=== PATIENT | female | born 1950 | race African-American/Black ===

== ENCOUNTER 2017-07-20 09:35 | Outpatient (CLI) | payer MEDICARE | END 2017-07-20 09:36 | disposition home or self-care (01) | LOC: BICMAMMO 09:35 | PROVIDERS: ATTEND Family Medicine | DX: Z12.31 Encounter for screening mammogram for malignant neoplasm of breast (principal) | CPT/HCPCS: 77063; 77067 ==

== ENCOUNTER 2017-10-13 09:06 | Emergency (ER) | payer MEDICARE ==
[2017-10-13 09:33] LABS: #Eosinphils 0.1 thou/uL (0.0-0.7); #Lymphocytes 1.3 thou/uL (1.20-3.40); #Monocytes 0.4 thou/uL (0.11-0.59); %Basophils 0.6 % (0.0-1.0); %Eosinophils 1.7 % (0.0-10.0); %Lymphocytes 18.9 % (21.0-51.0); %Monocytes 6.3 % (0.0-10.0); %Neutrophils 72.4 % (42.0-75.0); Hemoglobin 9.1 g/dL (12.0-16.0); Mean Corpuscular HGB CONC 31.3 g/dL (32.0-36.0); Mean Corpuscular Hemoglobin 25.1 pg (27.0-31.0); Mean Corpuscular Volume 80.3 fl (81.0-99.0); Mean Platelet Volume 10.4 fL (7.4-10.4); Platelet Count 144 thou/uL (130-400); RBC Distribution Width 15.9 % (11.5-14.5); Red Blood Cell (RBC) Count 3.62 mill/uL (4.20-5.40); White Blood Cell (WBC) Count 6.9 thou/uL (4.8-10.8)
--- NOTE | 2017-10-13 09:56 | RAD ---
PORTABLE CHEST: History: Chest pain. FINDINGS: The lungs olson are clear. No infiltrate or vascular congestion. Heart size is upper normal. IMPRESSION: No acute lung process. POS: [facility]
[2017-10-13 09:57] LABS: ALT (SGPT) 14 U/L (8-55); AST (SGOT) 17 U/L (5-34); Albumin 4.3 g/dL (3.4-4.8); Alkaline Phosphatase 92 U/L (40-150); Anion Gap 12 mmol/L (10-20); BUN (Urea Nitrogen) 23 mg/dL (9.8-20.1); Bilirubin, Total 0.2 mg/dL (0.2-1.2); CK (CPK) 129 U/L (29-168); Calc. Creatinine Clearance 0 mL/min (70-130); Calcium 9.9 mg/dL (7.8-10.44); Carbon Dioxide 28 mmol/L (23-31); Chloride 103 mmol/L (98-107); Estimated GFR-MDRD 44; Globulin 3.6 g/dL (2.4-3.5); Glucose 137 mg/dL (80-115); Lipase 20 U/L (8-78); Potassium 4.5 mmol/L (3.5-5.1); Protein, Total 7.9 g/dL (6.0-8.3); Sodium 138 mmol/L (136-145)
[2017-10-13 09:59] LABS: CKMB 0.7 ng/mL (0-6.6); Troponin I Less than 0.010 ng/mL (< 0.028)
[2017-10-13 12:02] LABS: CKMB 0.6 ng/mL (0-6.6); Troponin I Less than 0.010 ng/mL (< 0.028)
--- NOTE | 2017-10-13 13:01 | CT ---
CT ARTERIOGRAM CHEST WITH IV CONTRAST AND 3D MIP IMAGING: HISTORY: Chest pain. Dyspnea. FINDINGS: No comparison. There is good contrast opacification of the pulmonary arteries and thoracic aorta wit h normal branching of the great vessels. Calcifications apparent within the arterial structures. Mi ld atelectasis at the lung bases. No lobar consolidation, pleural fluid, or pneumothorax. No medias tinal adenopathy. Small hiatal hernia. Small cyst superior pole right kidney. IMPRESSION: 1. No CT evidence of pulmonary embolus. 2. Atherosclerosis. 3. Small hiatal hernia. POS: [facility]
[2017-10-13] MEDS ORDERED: ISOVUE-370 76%-LOCM 1 ML ONE (14:56)
--- NOTE | 2017-10-18 16:09 | EKG ---
Test Reason : Blood Pressure : / mmHG Vent. Rate : 063 BPM Atrial Rate : 063 BPM P-R Int : 156 ms QRS Dur : 080 ms QT Int : 406 ms P-R-T Axes : 003 024 029 degrees QTc Int : 415 ms Normal sinus rhythm No STEMI Normal ECG Confirmed by FANY DARNELL M.D. ([id number]), film editor supervisor HILARIA FERMIN ([id number]) on 10/18/2017 4:09:32 PM Referred By: Confirmed By:FANY DARNELL M.D.
== END 2017-10-13 12:58 | disposition home or self-care (01) ==
LOC: ERS 09:06
DX: R07.89 Other chest pain (principal); I12.9 Hypertensive chronic kidney disease with stage 1 through stage 4 chronic kidney disease, or unspecified chronic kidney disease; E11.22 Type 2 diabetes mellitus with diabetic chronic kidney disease; N18.3 Chronic kidney disease, stage 3 (moderate); E78.5 Hyperlipidemia, unspecified; D50.9 Iron deficiency anemia, unspecified
CPT/HCPCS: 36415; 71045; 71275; 80053; 82550; 82553; 83690; 84484; 85025; 85379; 93005; 94760

== ENCOUNTER 2017-10-21 10:40 | Outpatient (CLI) | payer MEDICARE | END 2017-10-21 10:41 | disposition home or self-care (01) | LOC: BICULT 10:40 | PROVIDERS: ATTEND Internal Medicine Nephrology | DX: N18.3 Chronic kidney disease, stage 3 (moderate) (principal); N28.1 Cyst of kidney, acquired | CPT/HCPCS: 76770 ==

== ENCOUNTER 2019-03-28 08:08 | Outpatient (CLI) | payer MEDICARE ==
--- NOTE | 2019-03-28 08:38 | MMO ---
Bilateral MAMMO Bilat Screen [facility]DI[facility]PR[facility]. CLINICAL HISTORY: Patient is 68 years old and is seen for screening. The patient has no family history of breast cancer. The patient has no personal history of cancer. The patient has a history of left Excisional Biopsy in 1979 - benign. VIEWS: The views performed were: bilateral craniocaudal with tomosynthesis and bilateral mediolateral oblique with tomosynthesis. FILMS COMPARED: The present examination has been compared to prior imaging studies performed at [facility] on 12/01/2012, 01/23/2014, 06/08/2016 and 07/20/2017. This study has been interpreted with the assistance of computer-aided detection. MAMMOGRAM FINDINGS: There are scattered fibroglandular densities. There are no suspicious masses, suspicious calcifications, or new areas of architectural distortion. IMPRESSION: THERE IS NO MAMMOGRAPHIC EVIDENCE OF MALIGNANCY. A ROUTINE FOLLOW-UP MAMMOGRAM IN 1 YEAR IS RECOMMENDED. THE RESULTS OF THIS EXAM WERE SENT TO THE PATIENT. ACR BI-RADS Category 1 - Negative MAMMOGRAPHY NOTE: 1. A negative mammogram report should not delay a biopsy if a dominant of clinically suspicious mass is present. 2. Approximately 10% to 15% of breast cancers are not detected by mammography. 3. Adenosis and dense breasts may obscure an underlying neoplasm. Reported by: RHODA SHEARER MD Electonically Signed: [id number]
== END 2019-03-28 08:09 | disposition home or self-care (01) ==
LOC: BICMAMMO 08:08
PROVIDERS: ATTEND Family Medicine
DX: Z12.31 Encounter for screening mammogram for malignant neoplasm of breast (principal); Z91.89 Other specified personal risk factors, not elsewhere classified
CPT/HCPCS: 77063; 77067

== ENCOUNTER 2019-11-14 09:07 | Inpatient (IN) | payer MEDICARE, OTHER ==
[2019-11-14 09:53] LABS: Hemoglobin 9.4 g/dL (12.0-16.0); Mean Corpuscular HGB CONC 30.2 g/dL (32.0-36.0); Mean Corpuscular Hemoglobin 25.9 pg (27.0-31.0); Mean Corpuscular Volume 85.6 fL (78.0-98.0); RBC Distribution Width 18.8 % (11.5-14.5); Red Blood Cell (RBC) Count 3.64 mill/uL (4.20-5.40); White Blood Cell (WBC) Count 16.6 thou/uL (4.8-10.8)
[2019-11-14] MEDS ORDERED: Ondansetron PF 4 MG/2 ML Vial IVP PRN (10:00)
[2019-11-14] MEDS ORDERED: Acetaminophen 325 MG TAB PO PRN (10:00)
[2019-11-14] MEDS ORDERED: Ondansetron ODT 4 MG TAB SL PRN (10:00)
[2019-11-14 10:20] LABS: AST (SGOT) 25 U/L (5-34); Albumin 3.4 g/dL (3.4-4.8); Alkaline Phosphatase 91 U/L (40-110); Anion Gap 25 mmol/L (10-20); BUN (Urea Nitrogen) 69 mg/dL (9.8-20.1); Bilirubin, Total 0.4 mg/dL (0.2-1.2); Calc. Creatinine Clearance 0 mL/min (70-130); Calcium 8.6 mg/dL (7.8-10.44); Carbon Dioxide 12 mmol/L (23-31); Chloride 87 mmol/L (98-107); Estimated GFR-MDRD 8; Globulin 3.6 g/dL (2.4-3.5); Potassium 4.9 mmol/L (3.5-5.1)
[2019-11-14 10:26] LABS: #Basophils 0.1 thou/uL (0.0-0.2); #Lymphocytes 0.4 thou/uL (1.20-3.40); #Monocytes 0.9 thou/uL (0.11-0.59); #Neutrophils 15.2 thou/uL (1.40-6.50); %Basophils 0.7 % (0.0-1.0); %Lymphocytes 2.7 % (21.0-51.0); %Monocytes 5.6 % (0.0-10.0); Mean Platelet Volume 13.1 fL (7.4-10.4); Platelet Count 160 thou/uL (130-400); Sodium 119 mmol/L (136-145)
[2019-11-14 10:27] LABS: Glucose 662 mg/dL (80-115); Large Platelets SLIGHT; MDiff Complete? YES; Platelet Morphology Comment Appears Adequate
--- NOTE | 2019-11-14 10:27 | RAD ---
PORTABLE CHEST 1 VIEW: Date: 11/14/2019 Time: 1006 hours HISTORY: Elevated blood sugar. Fatigue. Cough. Fever. FINDINGS: Comparison made with exam of 10/13/2017. The heart size is normal. There is patchy air space disease in the right lower lung. No pneumothorace s or pleural effusions are seen. There are degenerative changes in the spine. IMPRESSION: Right-sided pneumonia. POS: [facility]
[2019-11-14 10:29] LABS: ALT (SGPT) 14 U/L (8-55)
[2019-11-14 10:35] LABS: CKMB 3.9 ng/mL (0-6.6)
[2019-11-14] MEDS ORDERED: Azithromycin 500 MG VIAL ONE (10:59)
[2019-11-14] MEDS ORDERED: cefTRIAXone\\ROCEPHIN 1 GM VIAL ONE (10:59)
[2019-11-14] MEDS ORDERED: Sodium Chloride 0.9% 1,000 ML IV PRN ×4 (11:00)
[2019-11-14] MEDS ORDERED: NS 0.9% w/ 20 MEQ KCL 1,000 ML/1,000 ML BAG IV PRN ×2 (11:00)
[2019-11-14] MEDS ORDERED: Dextrose 5% in Water 1,000 ML IV PRN (11:00)
[2019-11-14] MEDS ORDERED: D5 1/2 NS w/20 mEq KCL 1,000 ML IV PRN (11:00)
[2019-11-14] MEDS ORDERED: HUMULIN R 100 UNITS in Sodium Chloride 0.9% 100 ML IVPB SCH ×2 (11:15→14:00)
[2019-11-14] MEDS ORDERED: Magnesium Oxide 400 MG TAB PO PRN ×2 (13:50)
[2019-11-14] MEDS ORDERED: Potassium Chloride 40 MEQ in Sodium Chloride 0.9% 250 ML 250 ML IVPB PRN (13:50)
[2019-11-14] MEDS ORDERED: Potassium Phosphate 9 MMOL in Sodium Chloride 0.9% 100 ML IVPB PRN (13:50)
[2019-11-14] MEDS ORDERED: Potassium Phosphate 15 MMOL in Sodium Chloride 0.9% 250 ML 250 ML IV PRN (13:50)
[2019-11-14] MEDS ORDERED: Potassium Chloride 40 MEQ in Premix Bag 1 BAG IVPB PRN (13:50)
[2019-11-14] MEDS ORDERED: Magnesium 2 GM/50 ML 2 GM in Premix Bag 1 BAG IVPB PRN (13:50)
[2019-11-14] MEDS ORDERED: CCU ELECTROLYTE REPLACEMENT PROTOCOL FS PRN (13:50)
[2019-11-14] MEDS ORDERED: Potassium Phosphate 12 MMOL in Sodium Chloride 0.9% 250 ML 250 ML IV PRN (13:50)
[2019-11-14] MEDS ORDERED: PHOS-NAK 1 PKT PACK PO PRN ×2 (13:50)
[2019-11-14] MEDS ORDERED: Potassium Chloride 20 MEQ TAB PO PRN (13:50)
[2019-11-14] MEDS ORDERED: Dextrose 50% Abboject 50 ML SYRINGE SLOW IVP PRN (13:50)
[2019-11-14 14:43] LABS: Anion Gap 21 mmol/L (10-20); BUN (Urea Nitrogen) 63 mg/dL (9.8-20.1); Calc. Creatinine Clearance 0 mL/min (70-130); Calcium 8.1 mg/dL (7.8-10.44); Carbon Dioxide 10 mmol/L (23-31); Chloride 96 mmol/L (98-107); Estimated GFR-MDRD 9; Glucose 489 mg/dL (80-115); Potassium 4.1 mmol/L (3.5-5.1); Sodium 123 mmol/L (136-145)
[2019-11-14] MEDS: Heparin 5,000 UNITS/ML VIAL SC SCH ×2 (15:42→20:00)
[2019-11-14] MEDS ORDERED: traMADol HCl 50 MG TAB PO PRN (16:26)
[2019-11-14 17:22] LABS: SARS-CoV-2 MS2 Positive; SARS-CoV-2 N Gene Negative; SARS-CoV-2 S Gene Negative; SARS-CoV-2 orf1ab Negative
[2019-11-14 17:35] LABS: Actual Bicarbonate (HCO3a) 13.1 mEq/L (22-28); Base Excess (BEa) -13.2 mEq/L (-2.0 to +3.0); CO2 Tension 31.9 mmHg (35.0-45.0); Calcium, Ionized 1.09 mmol/L (1.12-1.30); Carboxyhemoglobin (COHb) 0.2 gm% (0.0-3.0); Hemoglobin (Hb) 9.9 g/dL (12.0-16.0); Potassium - ABG Lab 3.93 mmol/L (3.70-5.30)
[2019-11-14 17:39] LABS: O2 Tension (PaO2) 59.8 mmHg (> 80.0); Puncture Site RR; pH, Arterial 7.23 (7.35-7.45)
[2019-11-14 17:42] LABS: ALV-art Gradient 185.525 (0-20)
[2019-11-14 18:17] LABS: Anion Gap 20 mmol/L (10-20); BUN (Urea Nitrogen) 63 mg/dL (9.8-20.1); Calc. Creatinine Clearance 13 mL/min (70-130); Carbon Dioxide 12 mmol/L (23-31); Chloride 98 mmol/L (98-107); Estimated GFR-MDRD 9; Potassium 4.1 mmol/L (3.5-5.1); Sodium 126 mmol/L (136-145)
[2019-11-14 18:18] LABS: Calcium 8.3 mg/dL (7.8-10.44); Glucose 342 mg/dL (80-115)
[2019-11-14 18:36] LABS: Troponin I 0.071 ng/mL (< 0.028)
[2019-11-14 20:34] LABS: Anion Gap 19 mmol/L (10-20); BUN (Urea Nitrogen) 63 mg/dL (9.8-20.1); Calc. Creatinine Clearance 13 mL/min (70-130); Calcium 8.1 mg/dL (7.8-10.44); Carbon Dioxide 12 mmol/L (23-31); Chloride 99 mmol/L (98-107); Estimated GFR-MDRD 9; Glucose 278 mg/dL (80-115); Sodium 126 mmol/L (136-145)
[2019-11-14] MEDS: Dextrose 5 %-0.45 % NaCl 1,000 ML IV PRN (22:20)
--- NOTE | 2019-11-14 22:37 | HP ---
CHIEF COMPLAINT: High blood sugars. HISTORY OF PRESENT ILLNESS: This patient is a 69-year-old female, followed by Dr. Francis Guajardo. She reports that she has chronic kidney disease and is followed by Dr. Sands as well. Dr. Guajardo recently changed her medications to discontinue the metformin and it appears that she had glyburide started on 11/10/2019, as a substitution. She reports that her blood sugar started running high and she started feeling bad. She had frequent polyuria and poor appetite. She says that her blood sugars continued to elevate and that is why she ultimately presented to the emergency department. The patient does also report, however, that she started running fever about 4 days ago. She also admits to having a cough that is productive of some blood-tinged sputum. She denies feeling short of breath. Denies any chest pain. She does have some lower back pain when she is lying down. REVIEW OF SYSTEMS: Again, she has had fever. She has had poor appetite and polyuria. All other systems reviewed, all were otherwise negative. PAST MEDICAL HISTORY: Diabetes, hypertension, hyperlipidemia, chronic kidney disease, obstructive sleep apnea. Chronic anemia for which she takes shots, she says she was originally on Procrit, but that has been changed through the [facility]. PAST SURGICAL HISTORY: Breast biopsy. FAMILY HISTORY: Both parents had diabetes. SOCIAL HISTORY: Nonsmoker, nondrinker, nondrug user. She is . She is full code. Her would be her surrogate decision maker should that become necessary. ALLERGIES: CODEINE, MEPERIDINE, OXAPROZIN, AND METFORMIN IS ON THAT LIST, BUT PRESUMABLY DUE TO HER RENAL FUNCTION. MEDICATIONS: Glyburide 5 mg one p.o. daily, rosuvastatin 40 mg daily, carvedilol 25 mg b.i.d., nifedipine 90 mg one p.o. daily, MiraLAX p.r.n., Centrum Silver daily, CoQ10 with fish oil omega-3 fatty acids daily, aspirin 81 mg daily. PHYSICAL EXAMINATION: VITAL SIGNS: In the emergency department, the patient's BP ranged from 97/53 to 107/51, pulse is 73, respirations 26-32, O2 saturation was at 95% on 3 L. GENERAL APPEARANCE: Age-appropriate female, slightly obese, in no acute distress. She is a little somnolent, but easily awaken and conversant. HEENT: PERRL. No OP lesions. NECK: Supple and symmetric without lymphadenopathy, JVD, or bruits. HEART: Regular rate and rhythm without murmurs, gallops, or rubs. LUNGS: Right-sided rales present. No wheezes or rhonchi. Left is clear. ABDOMEN: Soft, nontender, and nondistended. Positive bowel sounds. No masses. No organomegaly. EXTREMITIES: No cyanosis, clubbing, or edema. PSYCH: Normal affect and behavior. NEURO: No focal deficits. LABORATORY DATA: White count 16.6, hemoglobin 9.4, platelets 160. Sodium is 119, potassium 4.9, chloride 87, CO2 12, BUN 69, creatinine is 6.22, GFR is 8, glucose 662. LFTs normal. Troponin 0.93. Beta hydroxybutyrate 3.16. Chest x-ray shows right-sided pneumonia. EKG shows sinus rhythm at 78 beats per minute. IMPRESSION AND PLAN: 1. Diabetic ketoacidosis. This patient is typically not a type 1 diabetic by history; however, she may have type 1 features given the longevity of her type 2 diabetes or she may have increased insulin requirements due to underlying infection and this is exacerbated by her renal function. She is admitted to the ICU and started on DKA protocol; however, we will not use the replacement protocol for potassium given her renal function. She is on an insulin drip and we will continue to titrate as needed. 2. Acute kidney injury on chronic kidney disease stage 4. The patient's baseline GFR is around 25, she currently is at 8. She is followed by Dr. Sands. I have discussed it with him and we will consult him formally to come assess the patient as well. 3. Pseudohyponatremia, should continue to resolve with treatment of the hyperglycemia. 4. Diabetes mellitus. Again, continue with the insulin drip. 5. Chronic anemia. Currently, her hemoglobin is not too far up from her baseline, but likely will come down with aggressive hydration as she is probably somewhat hemoconcentrated. 6. Acute hypoxic respiratory failure due to underlying pneumonia. We will continue with oxygen support via Ventimask as needed. 7. Right-sided pneumonia. She has elevated white count, what appears to be largely lobar pneumonia more consistent with community-acquired bacterial pneumonia; however, COVID testing has been performed and we will keep the patient in isolation until that is resulted. Until then, continue with Rocephin and azithromycin and follow up cultures. Job ID: [id number]
--- NOTE | 2019-11-15 00:27 | CON ---
DATE OF CONSULTATION: HISTORY OF PRESENT ILLNESS: Ms. Chacon is a 69-year-old black female with known history of chronic renal failure from diabetic nephropathy. She was admitted due to elevated blood sugar. In addition, she was found to have an incidental pneumonia. She is being ruled out for COVID-19. We are being consulted for her acute kidney injury on top of her chronic renal failure. REVIEW OF SYSTEMS: Positive for generalized malaise. Positive for decreased appetite, decreased energy level. Positive for nausea, but no overt vomiting. No diarrhea. No constipation. Positive for ? of fever. Positive for a cough. No hematochezia. No melena. MEDICATIONS: 1. Aspirin 81 mg tablet once a day. 2. Nifedipine 90 mg XL tablet once a day. 3. Januvia 100 mg once a day. 4. Coreg 25 mg b.i.d. 5. Rosuvastatin 40 mg tablet q.h.s. 6. Centrum Silver daily. 7. Coenzyme Q10 one tablet daily. Current medications: 1. Azithromycin 500 mg IV daily. 2. Ceftriaxone 1 g IV daily. 3. Humulin drip. 4. Heparin 5000 units subcu b.i.d. 5. Normal saline with 20 mEq KCl at 250 mL an hour. PAST MEDICAL HISTORY: Chronic renal failure from diabetic nephropathy, longstanding hypertension, type 2 diabetes mellitus, hyperlipidemia. PAST SURGICAL HISTORY: Status post upper GI endoscopy, status post colonoscopy, status post right breast biopsy benign finding, status post bilateral carpal tunnel surgery, status post partial hysterectomy, status post appendectomy. SOCIAL HISTORY: The patient is , 3 children. She lives in [place]. 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 No history of smoking. No alcohol intake. No IV drug abuse. Education, 9th grade. No blood transfusion. ALLERGIES: CODEINE. TRAUMA: None. IMMUNIZATION: Up-to-date. HOSPITALIZATIONS: Please see past medical history. FAMILY HISTORY: No family history of ESRD. PHYSICAL EXAMINATION: VITAL SIGNS: Blood pressure is noted at 90/70, heart rate 70. GENERAL: The patient is awake, lethargic, not in overt distress. SKIN: Decreased turgor. HEENT: She has pinkish conjunctivae. Anicteric sclerae. No neck mass. No carotid bruits. No JVD. CHEST: No deformities. LUNGS: Clear breath sounds. HEART: Normal sinus rhythm. No murmur, gallops, or rubs. ABDOMEN: Globular, soft, nontender. No masses. EXTREMITIES: No edema, no deformities. NEUROLOGICAL: Awake, lethargic. No tremors. No asterixis. Somewhat confused. LABORATORY DATA: 1. Chemistries of November 14, 2019 at 1415 hours: Sodium 123, potassium 4.1, chloride 96, carbon dioxide 10, BUN 63, creatinine 5.77, glucose 489, GFR 9 mL/minute, calcium 8.1. 2. November 14, 2019 at 0938 hours, BUN is 69, creatinine 6.22. 3. September 25, 2019: Creatinine 2.36. 4. White count 16.6, hemoglobin 9.4. DIAGNOSTIC STUDIES: Chest x-ray of November 14, 2019, shows right-sided pneumonia. ASSESSMENT AND PLAN: 1. Acute kidney injury on top of her chronic renal failure - consider the possibility of a hemodynamically-mediated renal dysfunction. Agree with empiric volume repletion. Currently, receiving normal saline at 250 mL an hour. She is tolerating said treatment. I do not see any indication for any emergent dialysis tonight. We will re-evaluate in a.m. Review of the urinalysis will also be done. 2. Diabetic ketoacidosis, currently on insulin drip. Currently, on aggressive volume repletion. Optimize diabetes control. 3. Pneumonia, on empiric IV antibiotics. The patient is also being ruled out for coronavirus disease-19 infection. Agree with current management. Job ID: [id number]
[2019-11-15 01:58] LABS: Anion Gap 19 mmol/L (10-20); BUN (Urea Nitrogen) 67 mg/dL (9.8-20.1); Calc. Creatinine Clearance 13 mL/min (70-130); Calcium 7.7 mg/dL (7.8-10.44); Carbon Dioxide 11 mmol/L (23-31); Chloride 99 mmol/L (98-107); Estimated GFR-MDRD 9; Glucose 200 mg/dL (80-115); Potassium 3.7 mmol/L (3.5-5.1); Sodium 125 mmol/L (136-145)
[2019-11-15] MEDS: Dextrose 5 %-0.45 % NaCl 1,000 ML IV PRN (02:29)
[2019-11-15 07:41] LABS: Bacteria/HPF 4+ HPF (None Seen); Bilirubin Negative (Negative); Blood, Urine 2+ (Negative); Clarity Clear (Clear); Glucose, Urine (Dipstick) 200 mg/dL (Negative); Leukocyte Negative Leu/uL (Negative); Nitrite Negative (Negative); Protein, Urine (Dipstick) 300 mg/dL (Neg-Trace); Urobilinogen Normal mg/dL (Less than 2); WBC/HPF 0-3 HPF (0-3)
[2019-11-15] MEDS: Sodium Chloride 0.45% 1,000 ML IV SCH (08:37)
[2019-11-15] MEDS: Heparin 5,000 UNITS/ML VIAL SC SCH ×3 (08:42→21:06)
[2019-11-15] MEDS: Famotidine 20 MG TAB PO SCH (08:42)
--- NOTE | 2019-11-15 09:30 | CON ---
DATE OF CONSULTATION: HISTORY OF PRESENT ILLNESS: Steff Chacon is a pleasant 69-year-old female, who was brought to the ER with symptoms of elevated blood sugar, shortness of breath, and chest pain. Initial blood pressure is 107/51, temperature is 99, respiratory rate 18, pulse 81, saturations are 92% on room air. She apparently desatted, had low oxygen level. She is transferred to the ICU on BiPAP. Serology done for coronavirus negative. She improved, breathing on the BiPAP. This morning, she is better. She has been taking metformin for several weeks. Apparently, this was discontinued because of worsening renal failure, put her on glipizide. Nonsmoker. Nondrinker. Previous [employer] work. No previous history of TB or bronchial asthma. PAST MEDICAL HISTORY: Pertinent for underlying renal failure, arthritis, hypertension, hyperlipidemia. PREVIOUS SURGERIES: Carpal tunnel, breast biopsy, appendix, hysterectomy. HOME MEDICATIONS: Includes; 1. Crestor 40. 2. Nifedipine 90. 3. Coenzyme Q10 100. 4. Coreg 25 b.i.d. 5. Januvia 100. 6. Glyburide 5. 7. Ecotrin 81. REVIEW OF SYSTEMS: Otherwise, negative. PHYSICAL EXAMINATION: GENERAL: She is awake, alert, and responsive. She is still somewhat short of breath. VITAL SIGNS: Sats are 98 on 3 L, blood pressure 129/51, pulse rate 18. CHEST: Decreased breath sounds. No wheezing. CARDIAC: Normal S1, S2. No gallops. ABDOMEN: No masses. NEUROLOGIC: She is awake, alert, and responsive. LABORATORY DATA: Shows PO2 of 59, pCO2 of 31, pH 7.2 on a BiPAP. Creatinine is 5.8, BUN is 67, sodium 125, glucose 150. White count 16,000, hemoglobin and hematocrit 9 and 31, platelet count is 116. X-ray shows a right-sided pneumonia. IMPRESSION: 1. Right lung pneumonia, community acquired. 2. Diabetes, renal failure. PLAN: low-dose insulin drip. I would suggest switching over to Lantus until renal function improves. Otherwise, I agree with present antibiotic, adjust for renal failure. PT, supportive care. She can probably be transferred out of the ICU to MICU. We will try and get a sputum culture if possible. Consultation note, 70 minutes, 50% direct patient care. Job ID: [id number]
[2019-11-15] MEDS: Insulin Glargine 10 UNITS in Pre-Filled Syringe 1 EACH SC SCH (09:42)
--- NOTE | 2019-11-15 09:53 | PRG ---
DATE OF SERVICE: 11/15/2019 SUBJECTIVE: Ms. Chacon is a 69-year-old black female with chronic renal failure, was initially admitted for DKA. She was also found to have pneumonia. She has been ruled out for COVID. She is on empiric IV antibiotics. We are seeing her up for chronic renal failure, which has worsened over time. In spite of volume repletion, the renal function is relatively unchanged. I did discuss at length with the patient to proceed with dialysis and she has agreed with that. Surgical consult will be done for placement of a cuffed hemodialysis catheter. OBJECTIVE: VITAL SIGNS: Blood pressure is noted at 123/56, heart rate 79, respiratory rate 30, temperature 97.6, and O2 saturation 96%. GENERAL: Awake, lethargic, not in overt distress. SKIN: Adequate turgor. HEENT: She has a slightly pale conjunctivae. Anicteric sclerae. NECK: No neck mass. No carotid bruits. No JVD. CHEST: No deformities. LUNGS: Decreased breath sounds. HEART: Normal sinus rhythm. No murmur. No gallops. No rubs. ABDOMEN: Globular, soft, and nontender. No masses. EXTREMITIES: No edema. No deformities. MEDICATIONS: Medications of November 15, 2019, were reviewed. LABORATORY DATA: Laboratories of November 14, 2019; white count 16.6 and hemoglobin 9.4. On November 15, 2019, glucose 150. Sodium 125, potassium 3.7, chloride 99, carbon dioxide 11, BUN 67, creatinine 5.58, GFR 9 mL/minute, and calcium 7.7. ASSESSMENT AND PLAN: 1. Chronic renal failure/acute kidney injury - unimproved renal function in spite of volume repletion. Urine sediment did not suggest a superimposed acute tubular necrosis. The plan due to the unimproved renal dysfunction, we will initiate hemodialysis with this patient. Surgical consult has been done. 2. Pneumonia. Currently, on IV antibiotics. The patient has been ruled out for COVID. 3. Overall prognosis remains guarded. Job ID: [id number]
[2019-11-15 10:08] LABS: ALT (SGPT) 20 U/L (8-55); AST (SGOT) 37 U/L (5-34); Alkaline Phosphatase 95 U/L (40-110); Anion Gap 20 mmol/L (10-20); BUN (Urea Nitrogen) 63 mg/dL (9.8-20.1); Bilirubin, Total 0.3 mg/dL (0.2-1.2); Calc. Creatinine Clearance 13 mL/min (70-130); Calcium 8.3 mg/dL (7.8-10.44); Carbon Dioxide 10 mmol/L (23-31); Chloride 99 mmol/L (98-107); Estimated GFR-MDRD 9; Globulin 3.9 g/dL (2.4-3.5); Glucose 174 mg/dL (80-115); Hemoglobin 9.1 g/dL (12.0-16.0); Mean Corpuscular HGB CONC 30.4 g/dL (32.0-36.0); Mean Corpuscular Hemoglobin 26.2 pg (27.0-31.0); Mean Corpuscular Volume 86.2 fL (78.0-98.0); Mean Platelet Volume 12.9 fL (7.4-10.4); Platelet Count 152 thou/uL (130-400); Protein, Total 6.9 g/dL (6.0-8.3); RBC Distribution Width 18.7 % (11.5-14.5); Red Blood Cell (RBC) Count 3.46 mill/uL (4.20-5.40); Sodium 125 mmol/L (136-145); White Blood Cell (WBC) Count 17.8 thou/uL (4.8-10.8)
[2019-11-15 10:26] LABS: Band 24 % (5-11); Hypochromia SLIGHT = 6-15 cells (100X) (0-5/hpf); Lymphocytes 5 % (21-51); MDiff Complete? YES; Monocytes 4 % (0-10); Neutrophil 67 % (42-75); Ovalocytes SLIGHT = 2-5 cells (100X) (0-1/hpf); Platelet Morphology Comment Appears Adequate; Polychromasia MODERATE = 3-4 cells (100X) (0-2/hpf)
[2019-11-15 10:30] LABS: HBSAB Concentration 2.22 mIU/mL; HBSAg Index 0.19 S/CO (0-0.99); Hep B Core Total Ab Non-Reactive (NonReactive); Hep B Core Total Index 0.17 S/CO (0-0.79); Hep B Surf AB Non-Reactive (NonReactive); Hep B Surf Ag Non-Reactive S/CO (NonReactive); Hep C IgG Ab Non-Reactive (NonReactive); Hep C Index 0.09 S/CO (0-0.79)
[2019-11-15] MEDS: cefTRIAXone\\ROCEPHIN 1 GM in Sodium Chloride 0.9% 100 ML IVPB SCH (11:15)
[2019-11-15] MEDS: Azithromycin 500 MG in Sodium Chloride 0.9% 250 ML 250 ML IVPB SCH (11:43)
[2019-11-15] MEDS ORDERED: Furosemide 100 MG/10 ML VIAL SLOW IVP SCH (12:15)
--- NOTE | 2019-11-15 12:16 | ULT ---
BILATERAL UPPER EXTREMITY VENOUS DOPPLER ULTRASOUND FOR VEIN MAPPING/DIALYSIS ACCESS: Date: 11/15/2019 HISTORY: Chronic renal failure. FINDINGS: RIGHT UPPER EXTREMITY: The right cephalic vein measures 2.8 mm in the proximal arm, 2.1 mm in the mid arm, 1.6 mm in the dis jacinto arm, 2.1 mm in the proximal forearm, 1.9 mm in the mid forearm, and 1.6 mm in the distal forearm. There is partial compression of the right cephalic vein in the antecubital fossa due to thrombus. The right basilic vein measures 4.2 mm in the proximal arm, 5.1 mm in the mid arm, 3.5 mm in the dist al arm, 3.3 mm in the antecubital fossa, 1.7 mm in the proximal forearm, 1.1 mm in the mid forearm, a nd 1.1 mm in the distal forearm. The right brachial artery measures 4.7 mm, radial artery measures 2.4 mm, and ulnar artery measures 2 .0 mm. LEFT UPPER EXTREMITY: The left cephalic vein measures 2.3 mm in the proximal arm, 3.0 mm in the mid arm, 2.6 mm in the dist al arm, 3.2 mm in the antecubital fossa, 1.5 mm in the proximal forearm, 1.8 mm in the mid forearm, a nd 1.8 mm in the distal forearm. The left basilic vein measures 3.3 mm in the proximal arm, 3.9 mm in the mid arm, 3.2 mm in the dista l arm, 3.9 mm in the antecubital fossa, 1.8 mm in the proximal forearm, 1.7 mm in the mid forearm, an d 1.3 mm in the distal forearm. The left brachial artery measures 4.5 mm, radial artery measures 3.4 mm, and ulnar artery measures 2. 5 mm. POS: [facility]
[2019-11-15] MEDS: Insulin Regular 300 UNITS/3 ML VIAL SC PRN ×3 (12:29→23:37)
[2019-11-15] MEDS ORDERED: Norepinephrine 8 MG/0.9% NS 250 ML ONE (12:54)
[2019-11-15 13:02] LABS: Actual Bicarbonate (HCO3a) 12.4 mEq/L (22-28); Base Excess (BEa) -16.3 mEq/L (-2.0 to +3.0); Calcium, Ionized 1.11 mmol/L (1.12-1.30); Carboxyhemoglobin (COHb) 0.4 gm% (0.0-3.0); Hemoglobin (Hb) 10.1 g/dL (12.0-16.0); O2 Tension (PaO2) 86.5 mmHg (> 80.0)
[2019-11-15] MEDS ORDERED: Propofol 1,000 MG/100 ML VIAL IV ONE (13:07)
[2019-11-15 13:31] LABS: Puncture Site LRA
[2019-11-15] MEDS ORDERED: Fentanyl BOLUS 250 ML IVPB PRN (14:27)
[2019-11-15] MEDS ORDERED: DISCONTINUE PREVIOUS NARCOTIC PAIN MEDICATIONS AND BENZODIAZEPINES FS SCH (14:27)
[2019-11-15] MEDS ORDERED: Propofol BOLUS 1,000 MG/100 ML VIAL IV PRN (14:27)
[2019-11-15] MEDS ORDERED: Morphine 2 MG/ML SYRINGE SLOW IVP PRN (14:27)
[2019-11-15] MEDS ORDERED: Lorazepam 2 MG/ML VIAL SLOW IVP PRN (14:27)
[2019-11-15] MEDS ORDERED: Norepinephrine 8 MG/0.9% NS 250 ML IVPB SCH (14:30)
[2019-11-15] MEDS: fentaNYL Citrate/PF 2,000 MCG in Sodium Chloride 0.9% 60 ML IV SCH (14:47)
--- NOTE | 2019-11-15 14:51 | PRG ---
DATE OF SERVICE: 11/15/2019 Called to see. The patient became progressively more lethargic, more obtunded. They are in the process of starting an emergency dialysis catheter. Unfortunately, her blood gases showed severe metabolic acidosis with a pH of 7.1. It is felt that she needs to be intubated. A bite block was placed, and 7.5 endotracheal tube was placed above the bronchoscope passed in, placed above the jigar. She was back for a period of time when the oxygen saturations improved to 95%. Bronchoscope was repassed in to lavage the lung because of history of right-sided pneumonia. Jigar was visualized, normal. Right lung; right middle lobe, right upper lobe, and right lower lobe, no obvious endobronchial disease was seen . Left lung was inspected thereafter, left upper lobe and left lower lobe visualized, no endobronchial disease was seen. Washings sent for Gram stain and C and S. Otherwise, the patient tolerated the procedure well. OBJECTIVE: VITAL SIGNS: Postintubation; pulse is 70, saturations are 96%, blood pressure 82/43, and respirations 17. GENERAL: She is sedated on Diprivan. CHEST: Decreased breath sounds. No wheezing. CARDIAC: Normal S1 and S2. No gallops. ABDOMEN: No masses. IMPRESSION: Respiratory failure secondary to severe metabolic acidosis, secondary to renal failure, right-sided pneumonia, and severe deconditioning. PLAN: Continue vent support. Hopefully, we will try and wean postextubation. Meantime; antibiotics, neb treatments, and supportive care. This is one-half hour of critical care time exclusive of the intubation, exclude the bronchoscopy and lavage. Job ID: [id number]
[2019-11-15 15:19] LABS: Actual Bicarbonate (HCO3a) 13.1 mEq/L (22-28); Base Excess (BEa) -12.9 mEq/L (-2.0 to +3.0); CO2 Tension 30.7 mmHg (35.0-45.0); Calcium, Ionized 1.08 mmol/L (1.12-1.30); Carboxyhemoglobin (COHb) 0.6 gm% (0.0-3.0); Hemoglobin (Hb) 9.7 g/dL (12.0-16.0); O2 Tension (PaO2) 63.4 mmHg (> 80.0); Potassium - ABG Lab 3.94 mmol/L (3.70-5.30)
[2019-11-15 15:20] LABS: ALV-art Gradient 326.025 (0-20); Puncture Site LRA; pH, Arterial 7.25 (7.35-7.45)
[2019-11-15] MEDS ORDERED: Sodium Bicarb 50 MEQ/50 ML Abboject 8.4% SYRINGE IVP SCH (15:30)
--- NOTE | 2019-11-15 15:41 | PDOC.HOSPP ---
- Subjective Encounter Date: 11/15/19 Subjective: Reports she still does not feel very well. Still feels some shortness of breath. - Objective Vital Signs & Weight: Vital Signs (12 hours) Temp Pulse Pulse Ox 11/15/19 15:06 71 11/15/19 13:32 71 11/15/19 12:00 96.8 F L 11/15/19 08:00 97.6 F 11/15/19 07:40 97 11/15/19 04:00 97.4 F L Weight Admit Weight 190 lb 4.143 oz Weight 190 lb 4.143 oz Most Recent Monitor Data Heart Rate from ECG 80 NIBP 97/49 NIBP BP-Mean 65 Respiration from ECG 20 SpO2 92 I&O: 11/14/19 11/15/19 11/16/19 06:59 06:59 06:59 Intake Total 4015.9 410 Output Total 0 50 Balance 4015.9 360 Result Diagrams: 11/15/19 09:35 11/15/19 09:35 Additional Labs: Accuchecks 11/15/19 11/15/19 11/15/19 11:40 07:48 06:08 POC Glucose 250 H 150 H 140 H 11/15/19 11/15/19 11/15/19 05:21 04:08 03:03 POC Glucose 149 H 160 H 189 H 11/15/19 11/15/19 11/15/19 02:01 01:06 00:06 POC Glucose 198 H 206 H 212 H 11/14/19 11/14/19 11/14/19 23:05 22:04 21:08 POC Glucose 211 H 213 H 269 H 11/14/19 11/14/19 11/14/19 20:00 19:12 17:49 POC Glucose 259 H 301 H 351 H 11/14/19 11/14/19 16:00 13:37 POC Glucose 392 H 529 H Hospitalist ROS - Medication Medications: Active Medications Generic Name Dose Route Start Last Admin Trade Name Freq PRN Reason Stop Dose Admin Famotidine 20 mg 11/15/19 09:00 11/15/19 08:42 Pepcid PO 20 mg DAILY ORIANA Administration Heparin Sodium (Porcine) 5,000 units 11/14/19 15:00 11/15/19 15:10 Heparin SC 5,000 units TID ORIANA Administration Ceftriaxone Sodium 1 gm/ 100 mls @ 200 mls/hr 11/15/19 11:00 11/15/19 11:15 Sodium Chloride IVPB 100 mls 1100 ORIANA Administration Azithromycin 500 mg/ Sodium 250 mls @ 250 mls/hr 11/15/19 12:00 11/15/19 11: 43 Chloride IVPB 250 mls 1200 ORIANA Administration Insulin Glargine 10 units/ 0.1 mls @ 0 mls/hr 11/15/19 09:00 11/15/19 09:42 Miscellaneous Medication SC 0.1 mls QAM ORIANA Administration Sodium Chloride 1,000 mls @ 50 mls/hr 11/15/19 08:30 11/15/19 08:37 1/2 Normal Saline IV 1,000 mls .Q20H ORIANA Administration Fentanyl Citrate 2,000 mcg/ 100 mls @ 0 mls/hr 11/15/19 14:27 11/15/19 14:47 Sodium Chloride IV 12/15/19 14:27 100 mls INF ORIANA Administration Protocol Per Protocol Insulin Human Regular 0 units 11/15/19 11:58 11/15/19 12:29 Humulin R SC 4 unit .MODERATE SLIDING SC PRN Administration MODERATE SLIDING SCALE Protocol Lorazepam 2 mg 11/15/19 14:27 11/15/19 15:10 Ativan SLOW IVP 12/15/19 14:27 2 mg Q1H PRN Administration Breakthrough agitation - Exam General Appearance: NAD, awake alert General - other findings: Obese Heart: RRR, no murmur, no gallops, no rubs, normal peripheral pulses Respiratory - other findings: Diffuse rales on the right. Left more clear. Gastrointestinal: soft, non-tender, non-distended, normal bowel sounds, no palpable masses, no hepatomegaly, no splenomegaly, no bruit Extremities: no cyanosis, no clubbing, no edema Skin: normal turgor Neurological: no focal deficits Musculoskeletal: generalized weakness Psychiatric: lethargic Hosp A/P (1) Acute respiratory failure with hypoxia Code(s): J96.01 - ACUTE RESPIRATORY FAILURE WITH HYPOXIA Status: Acute (2) Acute on chronic kidney failure Code(s): N17.9 - ACUTE KIDNEY FAILURE, UNSPECIFIED; N18.9 - CHRONIC KIDNEY DISEASE, UNSPECIFIED Status: Acute (3) Community acquired pneumonia Code(s): J18.9 - PNEUMONIA, UNSPECIFIED ORGANISM Status: Acute (4) Metabolic acidosis Code(s): E87.2 - ACIDOSIS Status: Acute (5) DKA (diabetic ketoacidoses) Code(s): E11.10 - TYPE 2 DIABETES MELLITUS WITH KETOACIDOSIS WITHOUT COMA Status: Acute (6) Hyponatremia Code(s): E87.1 - HYPO-OSMOLALITY AND HYPONATREMIA Status: Acute (7) Diabetes mellitus Code(s): E11.9 - TYPE 2 DIABETES MELLITUS WITHOUT COMPLICATIONS Status: Acute (8) Anemia in chronic kidney disease Code(s): N18.9 - CHRONIC KIDNEY DISEASE, UNSPECIFIED; D63.1 - ANEMIA IN CHRONIC KIDNEY DISEASE Status: Acute - Plan Resp Failure: Following my initial visit with the patient, ABG showed worsening acidosis with pH 7.1. She has subsequently been intubated. Combination of pneumonia, renal failure. Discussed with Dr. Weaver. Acute on chronic renal failure: Indices did not improve with hydration. Dr. Sands initiating HD. Plan was for catheter placement and fistula, but patient had decomp and then intubation. Pneumonia: Fairly severe R pneumonia with worsening exam from yesterday. On Rocephin/Azithromycin and Levaquin added per Dr. Weaver. DKA: Much of this is related to the infection and renal failure. Anion gap high normal now. Continue insulin management. Hyponatremia: Due to renal failure. Improved slightly. Anemia: Close to baseline. DVT prophylaxis: Heparin ordered. Held for procedure. GI prophylaxis: Pepcid 20 IV bid.
--- NOTE | 2019-11-15 16:58 | PDOC.OP ---
Operative Note - Operative Note Operative Note: PROCEDURE: Right femoral hemodialysis catheter with ultrasound guidance SURGEON: David Fam M.D. DATE: 11/15/2019 PREOPERATIVE DIAGNOSIS: Renal failure POSTOPERATIVE DIAGNOSIS: Renal failure HISTORY: Patient with acute on chronic renal failure requiring immediate dialysis. 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 PROCEDURE: After informed consent was obtained the patient was prepped and draped in standard sterile fashion and placed in supine position. A sterile ultrasound probe was used to identify the patent femoral vein and local anesthesia was infused the skin and subcutaneous tissues overlying this. The vein was accessed under direct ultrasound guidance and a wire threaded through the needle. The needle was removed leaving the wire in place which was confirmed by ultrasound to be within the patent compressible vein. The skin was incised and the tract was dilated. A hemodialysis catheter was placed over the wire and secured to the skin with suture. A Biopatch and Tegaderm dressing was placed. All ports easily aspirated dark venous nonpulsatile blood and easily flushed without resistance. There were no immediate complications. Estimated blood loss is minimal. There were no specimens. The inpatient dialysis nurse was alerted that the patient had dialysis access in place.
[2019-11-15] MEDS: Propofol 1,000 MG/100 ML VIAL IV PRN (19:16)
--- NOTE | 2019-11-15 23:02 | CON ---
DATE OF CONSULTATION: REASON FOR CONSULT: Dialysis access. HISTORY OF PRESENT ILLNESS: Ms. Chacon is a 69-year-old woman, who was admitted to the CCU with chronic renal failure with worsening renal function, high blood sugars, fever, and cough. She was found to be in fluid overload and institution of dialysis was recommended. When Dr. Sands saw her this morning, he felt that she could wait until tomorrow to have a dialysis catheter as she had already eaten breakfast today. However, when I came by to see her around lunchtime, she was significantly short of breath and had been placed on BiPAP. I spoke with Dr. Sands and he requested a femoral dialysis catheter for immediate institution of dialysis and he ordered some Lasix for her as well. The nurse was gathering the supplies, but when I returned less than an hour later, the patient had required intubation for worsening respiratory distress. PAST MEDICAL HISTORY: Diabetes, hypertension, hyperlipidemia, chronic kidney disease, obstructive sleep apnea, and anemia. PAST SURGICAL HISTORY: Breast biopsy. No previous dialysis access. FAMILY HISTORY: Diabetes. She also has a couple of second-degree relatives on dialysis. SOCIAL HISTORY: She does not smoke, drink, or use illicit drugs. Her has been in frequent contact by phone. ALLERGIES: SHE REPORTS ALLERGIES OR ADVERSE DRUG REACTIONS TO CODEINE, DEMEROL, OXAPROZIN, AND METFORMIN. OUTPATIENT MEDICATIONS: Include glyburide, rosuvastatin, carvedilol, nifedipine , MiraLAX, Centrum Silver, CoQ10, fish oil, and aspirin. REVIEW OF SYSTEMS: Limited by the patient's significant shortness of breath when I saw her, but she denied any GI symptoms or significant swelling in her extremities. PHYSICAL EXAMINATION: VITAL SIGNS: The patient has been afebrile. When I saw her shortly after noon , her heart rate was 81, blood pressure 102/51, respiratory rate 30 and 93% saturated on BiPAP. She had dropped into the 80s on nasal cannula. When I returned to put in her dialysis catheter, her blood pressure was running in the 80s to 90s systolic and her O2 saturations were in the mid 90s on the ventilator. GENERAL: Reveals an ill-appearing woman, in moderate distress with shortness of breath. HEENT: Unremarkable. NECK: Supple without lymphadenopathy. HEART: Regular in its rate and rhythm. I did not appreciate any murmurs, rubs , or gallops. She had bibasilar crackles, but no wheezing. ABDOMEN: Soft, nontender, nondistended without palpable masses or hernias. EXTREMITIES: Warm, well perfused with minimal ankle edema and fullness in both arms, but no pitting edema. NEUROLOGIC: No focal deficits. PSYCHIATRIC: Alert, oriented, and appropriate, although visibly short of breath and only answering short questions due to dyspnea. LABORATORY DATA: White count is elevated at 17.8, hematocrit 29.8, platelets 152. Sodium 125, BUN and creatinine 65 and 5.69. Potassium is normal at 4. Bicarb is low at 10. Blood glucose has ranged from 150 to 250. AST is mildly elevated at 37, but other LFTs are normal. COVID testing yesterday was negative. IMAGING: Chest x-ray on admission showed evidence of right-sided pneumonia. Bronchial washings are pending and blood cultures show no growth to date. Upper extremity venous mapping showed right cephalic vein measuring 1.6 to 2.1 mm in the forearm and 1.6 to 2.8 mm in the upper arm with partial thrombus in the antecubital fossa. The right basilic vein measures between 3.3 and 5.1 cm in the upper arm. On the left side, the cephalic vein measures 2.6 to 3.2 mm in the upper arm and 1.5 to 1.8 mm in the distal arm, the basilic vein measures 3.2 to 3.9 mm in the upper arm. The patient is right handed. ASSESSMENT: Chronic renal failure progressing to end-stage renal failure with clinical evidence of fluid overload as well as x-ray evidence of right-sided pneumonia. The patient has been intubated and urgent dialysis access requested. A right femoral dialysis catheter was placed as detailed under separate cover. The patient will require long-term access as well. I have her on the schedule for Wednesday for a tunneled dialysis catheter and possibly a left-sided AV fistula depending on her clinical status at that time and she appeared to have adequate veins for primary fistula on the left. I have asked the nurse to remove the IV on that side. I did discuss the procedure of femoral dialysis catheter placement with the patient before she was intubated and she did give verbal consent for this procedure. We will get consent for her operation on Wednesday from her . Job ID: [id number] [facility]
[2019-11-16] MEDS: Propofol 1,000 MG/100 ML VIAL IV PRN ×3 (02:38→20:44)
[2019-11-16 04:01] LABS: #Basophils 0.1 thou/uL (0.0-0.2); #Lymphocytes 0.8 thou/uL (1.20-3.40); #Monocytes 0.7 thou/uL (0.11-0.59); #Neutrophils 13.3 thou/uL (1.40-6.50); %Basophils 0.6 % (0.0-1.0); %Eosinophils 0.1 % (0.0-10.0); %Lymphocytes 5.5 % (21.0-51.0); %Monocytes 4.6 % (0.0-10.0); %Neutrophils 89.1 % (42.0-75.0); Hemoglobin 9.3 g/dL (12.0-16.0); Mean Corpuscular HGB CONC 31.6 g/dL (32.0-36.0); Mean Corpuscular Hemoglobin 26.2 pg (27.0-31.0); Mean Platelet Volume 9.4 fL (7.4-10.4); Platelet Count 163 thou/uL (130-400); RBC Distribution Width 18.9 % (11.5-14.5); Red Blood Cell (RBC) Count 3.56 mill/uL (4.20-5.40); White Blood Cell (WBC) Count 14.9 thou/uL (4.8-10.8)
[2019-11-16 04:05] LABS: Anion Gap 19 mmol/L (10-20); BUN (Urea Nitrogen) 47 mg/dL (9.8-20.1); Calc. Creatinine Clearance 15 mL/min (70-130); Calcium 8.3 mg/dL (7.8-10.44); Carbon Dioxide 15 mmol/L (23-31); Chloride 99 mmol/L (98-107); Estimated GFR-MDRD 10; Glucose 120 mg/dL (80-115); Potassium 3.2 mmol/L (3.5-5.1); Sodium 130 mmol/L (136-145)
[2019-11-16] MEDS: fentaNYL Citrate/PF 2,000 MCG in Sodium Chloride 0.9% 60 ML IV SCH (05:04)
[2019-11-16 07:06] LABS: Actual Bicarbonate (HCO3a) 16.6 mEq/L (22-28); Base Excess (BEa) -4.7 mEq/L (-2.0 to +3.0); Calcium, Ionized 1.02 mmol/L (1.12-1.30); Carboxyhemoglobin (COHb) 0.5 gm% (0.0-3.0); Hemoglobin (Hb) 9.3 g/dL (12.0-16.0); O2 Tension (PaO2) 75.5 mmHg (> 80.0); Potassium - ABG Lab 3.05 mmol/L (3.70-5.30); pH, Arterial 7.54 (7.35-7.45)
[2019-11-16 07:10] LABS: CO2 Tension 20.1 mmHg (35.0-45.0); Puncture Site RB
[2019-11-16 07:11] LABS: ALV-art Gradient 327.175 (0-20)
[2019-11-16] MEDS: Heparin 5,000 UNITS/ML VIAL SC SCH ×3 (07:39→20:40)
[2019-11-16] MEDS: Famotidine/PF 20 mg/2ml Vial SLOW IVP SCH (07:39)
[2019-11-16] MEDS: Famotidine 20 MG TAB PO SCH (07:40)
--- NOTE | 2019-11-16 07:47 | RAD ---
EXAM: CHEST ONE VIEW HISTORY: On ventilator. Follow-up evaluation. COMPARISON: 11/14/2019 FINDINGS: Endotracheal tube is noted in place with tip overlying the T5-6 level and just above the level of the jigar. Nasogastric tube has also been placed in the interim which courses into the left upper quadrant. The tip is not imaged. Cardiac silhouette is stable in size. Central pulmonary vasculature is mildly prominent. There is patchy airspace parenchymal opacity and consolidation in the right midlung zone and at the right lung base worrisome for pneumonia. The left lung remains clear. Vascula r calcifications are seen in the thoracic aorta. No other interval change. IMPRESSION: 1. Interval placement of endotracheal tube and nasogastric tube. 2. Pneumonia right midlung zone and right lung base. Follow-up to resolution is recommended.
[2019-11-16] MEDS ORDERED: Acetaminophen 650 MG Suppository PR PRN (08:19)
[2019-11-16] MEDS ORDERED: hydrALAZINE 20 MG/ML VIAL SLOW IVP PRN (08:19)
[2019-11-16] MEDS ORDERED: Bisacodyl 10 MG SUPP PR PRN (08:19)
[2019-11-16] MEDS ORDERED: Artificial Tears 18 DROP/0.9 ML EA EYE PRN (08:19)
[2019-11-16] MEDS ORDERED: Sodium Bicarb 50 MEQ/50 ML Abboject 8.4% SYRINGE ONE (08:53)
[2019-11-16] MEDS: Insulin Glargine 10 UNITS in Pre-Filled Syringe 1 EACH SC SCH (08:56)
[2019-11-16] MEDS ORDERED: Sodium Bicarb 50 MEQ/50 ML Abboject 8.4% SYRINGE IVP SCH (09:00)
--- NOTE | 2019-11-16 09:13 | PRG ---
DATE OF SERVICE: 11/16/2019 SUBJECTIVE: Steff Chacon is a 69-year-old female, intubated on the vent secondary to severe metabolic acidosis, respiratory failure, and hypoventilation. X-ray still shows right-sided infiltrate. Respirations set at 20, blood pressure 130/61, and pulse rate of 80. She is being dialyzed. Urine output has been marginal. Chest x-ray, right-sided infiltrate. Cultures, so far negative. OBJECTIVE: NEUROLOGIC: She is much more awake and responsive. CHEST: Decreased breath sounds. No wheezing. CARDIAC: Normal S1 and S2. No gallops. ABDOMEN: Soft. LABORATORY DATA: Creatinine 5 and sodium 130. A pO2 of 75, pCO2 of 20, and pH of 7.54. White count of 14,000. ASSESSMENT AND PLAN: Respiratory failure, renal failure, diabetes, and morbid obesity. Hold sedation. We will wean and extubate today. Continue otherwise supportive care. One half hour of critical care time. Job ID: [id number]
--- NOTE | 2019-11-16 09:35 | PRG ---
DATE OF SERVICE: 11/16/2019 SUBJECTIVE: Ms. Chacon is a 69-year-old black female, who was admitted for pneumonia and DKA. She is currently receiving IV antibiotics. In addition, she was initially on dialysis due to volume overload and for her progressive azotemia. She was also prophylactically intubated. She is currently undergoing hemodialysis. We were able to remove 2 L of fluid yesterday and I am attempting to remove another 3 L of fluid with the dialysis today. She seems to be tolerating the treatment. The plan is to extubate her after dialysis. OBJECTIVE: VITAL SIGNS: Blood pressure is 147/73, heart rate 91, respiratory rate 21, and O2 saturation 95%. GENERAL: The patient is awake, intubated on ventilator support. SKIN: Adequate turgor. HEENT: She has slightly pale conjunctivae. Anicteric sclerae. NECK: No neck mass. No carotid bruits. No JVD. CHEST: No deformities. LUNGS: Decreased breath sounds. HEART: Normal sinus rhythm. No murmur. No gallops. No rubs. ABDOMEN: Globular, soft, and nontender. No masses. EXTREMITIES: Trace edema. MEDICATIONS: Medications of November 16, 2019, was reviewed. LABORATORY DATA: Laboratories of November 16, 2019; white count 14.9, hemoglobin 9.3, sodium 130, potassium 3.2, chloride 99, carbon dioxide 15, BUN 47, creatinine 5.04, glucose 120, and calcium 8.3. ASSESSMENT AND PLAN: 1. Chronic renal failure/acute kidney injury - continue hemodialysis regimen. We will do a daily dialysis with this patient. Currently undergoing dialysis and attempting a 3 L of fluid removal as tolerated. 2. Borderline anemia. Continue to observe. 3. Pneumonia. Continuing antibiotic regimen. 4. Overall prognosis remains guarded. Recheck basic metabolic panel and CBC in a.m. Job ID: [id number]
--- NOTE | 2019-11-16 10:16 | PDOC.GSPN ---
Surgery Progress Note: Subj - Subjective Narrative: Doing better from a respiratory standpoint and off her levophed. Tolerating dialysis. Gram-positive cocci in clusters on bronchial cultures. Chest x-ray still shows fairly dense infiltrates on the right. Blood cultures are negative. She is on the schedule for tunneled dialysis catheter and possible left arm AV fistula tomorrow. I discussed the procedures and their inherent risks with her . These risks include but are not limited to bleeding, infection, risks of anesthesia, hemothorax, pneumothorax, need for other procedures, deep vein thrombosis, failure of the fistula to develop, and arterial steal which can cause ischemic damage to the hand. He understands accepts these risks and all of his questions were answered. Surgery Progress Note: Obj - Vital signs Vital signs: Vital Signs - Most Recent Temp Pulse Resp BP Pulse Ox 98.9 F 80 20 126/67 98 11/16/19 07:00 11/16/19 07:00 11/16/19 09:00 11/16/19 07:00 11/16/19 07:47 Surgery Progress Note: Results - Labs Result Diagrams: 11/16/19 03:17 11/16/19 03:17 Lab results: Laboratory Results - last 24 hr 11/15/19 11/16/19 11/16/19 23:40 03:17 03:17 WBC 14.9 H RBC 3.56 L Hgb 9.3 L Hct 29.5 L MCV 83.0 MCH 26.2 L MCHC 31.6 L RDW 18.9 H Plt Count 163 MPV 9.4 Neutrophils % 89.1 H Neutrophils % (Manual) Not Reportable Lymphocytes % 5.5 L Monocytes % 4.6 Eosinophils % 0.1 Basophils % 0.6 Neutrophils # 13.3 H Lymphocytes # 0.8 L Monocytes # 0.7 H Eosinophils # 0.0 Basophils # 0.1 Specimen Type Puncture Site Bicarbonate Actual ABG pH ABG pCO2 ABG pO2 ABG O2 Sat Calc/Tammy ABG O2 Content ABG Base Excess ABG Hematocrit ABG Hemoglobin ABG Oxyhemoglobin ABG Carboxyhemoglobin ABG Methemoglobin ABG Deoxyhemoglobin Franc Test A-a O2 Gradient Ionized Calcium Mode of Support % Minute Volume Mechanical Rate Inspired O2 Tidal Volume Pressure Support PEEP or CPAP Sodium 130 L Potassium 3.2 L Chloride 99 Carbon Dioxide 15 L Anion Gap 19 BUN 47 H Creatinine 5.04 H Estimated GFR (MDRD) 10 Glucose 120 H POC Glucose 161 H Calcium 8.3 11/16/19 11/16/19 05:31 07:00 WBC RBC Hgb Hct MCV MCH MCHC RDW Plt Count MPV Neutrophils % Neutrophils % (Manual) Lymphocytes % Monocytes % Eosinophils % Basophils % Neutrophils # Lymphocytes # Monocytes # Eosinophils # Basophils # Specimen Type ARTERIAL Puncture Site RB Bicarbonate Actual 16.6 L ABG pH 7.54 H ABG pCO2 20.1 L* ABG pO2 75.5 ABG O2 Sat Calc/Tammy 96.1 ABG O2 Content 12.6 L ABG Base Excess -4.7 L ABG Hematocrit 27.0 L ABG Hemoglobin 9.3 L ABG Oxyhemoglobin 95.3 ABG Carboxyhemoglobin 0.5 ABG Methemoglobin 0.30 ABG Deoxyhemoglobin 3.9 H Franc Test NOT DONE A-a O2 Gradient 327.175 H Ionized Calcium 1.02 L Mode of Support SIMV % Minute Volume 12.0 Mechanical Rate 24 Inspired O2 60 Tidal Volume 500 Pressure Support 10 PEEP or CPAP 5.0 Sodium 128 L Potassium 3.05 L Chloride 100 Carbon Dioxide Anion Gap BUN Creatinine Estimated GFR (MDRD) Glucose POC Glucose 113 H Calcium
--- NOTE | 2019-11-16 10:17 | PDOC.HOSPP ---
- Subjective Encounter Date: 11/16/19 Encounter Time: 09:45 Subjective: Patient seen and examined. pt is on ventilator,she is getting HD, No overnight events - Objective Vital Signs & Weight: Vital Signs (12 hours) Temp Pulse Resp BP Pulse Ox 11/16/19 09:00 20 11/16/19 08:00 20 11/16/19 07:58 20 11/16/19 07:47 98 11/16/19 07:00 98.9 F 80 126/67 11/16/19 06:54 80 126/67 11/16/19 06:00 24 H 11/16/19 04:58 81 11/16/19 04:00 98.5 F 24 H 11/16/19 02:47 76 11/16/19 02:00 24 H 11/16/19 00:00 98.2 F 24 H Weight Admit Weight 190 lb 4.143 oz Weight 190 lb 4.143 oz Most Recent Monitor Data Heart Rate from ECG 91 NIBP 147/73 NIBP BP-Mean 97 Respiration from ECG 21 SpO2 95 I&O: 11/15/19 11/16/19 11/17/19 06:59 06:59 06:59 Intake Total 4015.9 1863.7 66.8 Output Total 0 50 80 Balance 4015.9 1813.7 -13.2 Result Diagrams: 11/16/19 03:17 11/16/19 03:17 Additional Labs: Accuchecks 11/16/19 11/15/19 11/15/19 05:31 23:40 16:22 POC Glucose 113 H 161 H 197 H 11/15/19 11/14/19 11:40 13:37 POC Glucose 250 H 529 H Radiology Reviewed by me: Yes EKG Reviewed by me: Yes Hospitalist ROS - Review of Systems ROS unobtainable: due to endotracheal tube - Medication Medications: Active Medications Generic Name Dose Route Start Last Admin Trade Name Freq PRN Reason Stop Dose Admin Famotidine 20 mg 11/15/19 09:00 11/16/19 07:40 Pepcid PO Not Given DAILY ORIANA Famotidine 20 mg 11/16/19 09:00 11/16/19 07:39 Pepcid SLOW IVP 20 mg DAILY ORIANA Administration Heparin Sodium (Porcine) 5,000 units 11/14/19 15:00 11/16/19 07:39 Heparin SC 5,000 units TID ORIANA Administration Ceftriaxone Sodium 1 gm/ 100 mls @ 200 mls/hr 11/15/19 11:00 11/15/19 11:15 Sodium Chloride IVPB 100 mls 1100 ORIANA Administration Azithromycin 500 mg/ Sodium 250 mls @ 250 mls/hr 11/15/19 12:00 11/15/19 11: 43 Chloride IVPB 250 mls 1200 ORIANA Administration Insulin Glargine 10 units/ 0.1 mls @ 0 mls/hr 11/15/19 09:00 11/16/19 08:56 Miscellaneous Medication SC 0.1 mls QAM ORIANA Administration Sodium Chloride 1,000 mls @ 0 mls/hr 11/15/19 08:30 11/15/19 08:37 1/2 Normal Saline IV 1,000 mls .Q0M ORIANA Administration TKO Fentanyl Citrate 2,000 mcg/ 100 mls @ 0 mls/hr 11/15/19 14:27 11/16/19 05:04 Sodium Chloride IV 12/15/19 14:27 100 mls INF ORIANA Administration Protocol Per Protocol Insulin Human Regular 0 units 11/15/19 11:58 11/15/19 23:37 Humulin R SC 2 unit .MODERATE SLIDING SC PRN Administration MODERATE SLIDING SCALE Protocol Levofloxacin 250 mg 11/16/19 06:00 11/16/19 05:24 Levaquin PO 11/23/19 06:01 250 mg 0600 ORIANA Administration Lorazepam 2 mg 11/15/19 14:27 11/15/19 15:10 Ativan SLOW IVP 12/15/19 14:27 2 mg Q1H PRN Administration Breakthrough agitation Propofol 1,000 mg 11/15/19 14:27 11/16/19 07:39 Diprivan IV 12/15/19 14:27 1,000 mg INF PRN Administration TO ACHIEVE GOAL RASS Protocol Sodium Bicarbonate 50 meq 11/16/19 09:00 11/16/19 09:13 Bicarbonate, Sodium IVP 11/16/19 11:00 Not Given NOW ORIANA - Exam General - other findings: intubated Eye: PERRL ENT: normocephalic atraumatic, no oropharyngeal lesions Neck: supple, symmetric, no JVD Heart: RRR, no murmur, no gallops, no rubs Respiratory: no wheezes, no rales Gastrointestinal: soft, non-distended, normal bowel sounds Extremities: 1+ LE edema Skin: normal turgor, no lesions Hosp A/P - Plan old records reviewed/req (1) Acute respiratory failure with hypoxia Code(s): J96.01 - ACUTE RESPIRATORY FAILURE WITH HYPOXIA Status: Acute (2) Acute on chronic kidney failure Code(s): N17.9 - ACUTE KIDNEY FAILURE, UNSPECIFIED; N18.9 - CHRONIC KIDNEY DISEASE, UNSPECIFIED Status: Acute (3) Community acquired pneumonia Code(s): J18.9 - PNEUMONIA, UNSPECIFIED ORGANISM Status: Acute (4) Metabolic acidosis Code(s): E87.2 - ACIDOSIS Status: Acute (5) DKA (diabetic ketoacidoses) Code(s): E11.10 - TYPE 2 DIABETES MELLITUS WITH KETOACIDOSIS WITHOUT COMA Status: Acute (6) Hyponatremia Code(s): E87.1 - HYPO-OSMOLALITY AND HYPONATREMIA Status: Acute (7) Diabetes mellitus Code(s): E11.9 - TYPE 2 DIABETES MELLITUS WITHOUT COMPLICATIONS Status: Acute (8) Anemia in chronic kidney disease Code(s): N18.9 - CHRONIC KIDNEY DISEASE, UNSPECIFIED; D63.1 - ANEMIA IN CHRONIC KIDNEY DISEASE Status: Acute - Plan Resp Failure: She has subsequently been intubated. ventilator as per pulmonary Acute on chronic renal failure: now on HD Pneumonia: On Rocephin/Azithromycin and Levaquin DKA: continue insulin Hyponatremia: Due to renal failure. Anemia: Close to baseline. DVT prophylaxis: Heparin GI prophylaxis: Pepcid 20 IV
[2019-11-16] MEDS: cefTRIAXone\\ROCEPHIN 1 GM in Sodium Chloride 0.9% 100 ML IVPB SCH (11:24)
[2019-11-16] MEDS: Azithromycin 500 MG in Sodium Chloride 0.9% 250 ML 250 ML IVPB SCH (11:25)
[2019-11-16] MEDS: Insulin Regular 300 UNITS/3 ML VIAL SC PRN ×2 (17:18→23:38)
[2019-11-17 04:31] LABS: Anion Gap 17 mmol/L (10-20); BUN (Urea Nitrogen) 31 mg/dL (9.8-20.1); Calc. Creatinine Clearance 16 mL/min (70-130); Calcium 7.8 mg/dL (7.8-10.44); Carbon Dioxide 24 mmol/L (23-31); Chloride 99 mmol/L (98-107); Estimated GFR-MDRD 11; Glucose 158 mg/dL (80-115); Potassium 3.5 mmol/L (3.5-5.1); Sodium 136 mmol/L (136-145)
[2019-11-17] MEDS: Propofol 1,000 MG/100 ML VIAL IV PRN ×2 (05:25→23:34)
[2019-11-17 05:41] LABS: Hemoglobin 8.3 g/dL (12.0-16.0); Mean Corpuscular HGB CONC 31.1 g/dL (32.0-36.0); Mean Corpuscular Hemoglobin 25.9 pg (27.0-31.0); Mean Corpuscular Volume 83.4 fL (78.0-98.0); RBC Distribution Width 18.8 % (11.5-14.5); Red Blood Cell (RBC) Count 3.21 mill/uL (4.20-5.40); White Blood Cell (WBC) Count 17.1 thou/uL (4.8-10.8)
[2019-11-17 06:07] LABS: Mean Platelet Volume 12.7 fL (7.4-10.4); Platelet Count 162 thou/uL (130-400)
[2019-11-17 06:08] LABS: Anisocytosis SLIGHT = 6-15 cells (100X) (0-5/hpf); Band 22 % (5-11); Large Platelets SLIGHT; Lymphocytes 9 % (21-51); MDiff Complete? YES; Monocytes 1 % (0-10); Neutrophil 68 % (42-75); Platelet Morphology Comment Appears Adequate
[2019-11-17] MEDS: Sodium Chloride 0.45% 1,000 ML IV SCH (06:48)
[2019-11-17 07:09] LABS: Base Excess (BEa) -3.6 mEq/L (-2.0 to +3.0); CO2 Tension 30.4 mmHg (35.0-45.0); Calcium, Ionized 1.06 mmol/L (1.12-1.30); Hemoglobin (Hb) 8.9 g/dL (12.0-16.0); Potassium - ABG Lab 3.68 mmol/L (3.70-5.30); pH, Arterial 7.44 (7.35-7.45)
[2019-11-17 07:10] LABS: O2 Tension (PaO2) 55.3 mmHg (> 80.0); Puncture Site RRA
[2019-11-17] MEDS: Heparin 5,000 UNITS/ML VIAL SC SCH ×3 (07:49→21:36)
[2019-11-17] MEDS: Famotidine/PF 20 mg/2ml Vial SLOW IVP SCH (07:49)
[2019-11-17] MEDS: Famotidine 20 MG TAB PO SCH (07:49)
[2019-11-17] MEDS: Insulin Glargine 10 UNITS in Pre-Filled Syringe 1 EACH SC SCH (07:50)
[2019-11-17] MEDS ORDERED: Cefepime 0.5 GM in Admixture Fee 1 EACH IVPB SCH (09:00)
--- NOTE | 2019-11-17 09:12 | PRG ---
DATE OF SERVICE: SUBJECTIVE: Ms. Chacon is a 69-year-old black female, admitted for DKA/pneumonia. We are following her up for her chronic renal failure. She had a worsening renal dysfunction and went to overload. For that reason, she was initiated on dialysis. She has been tolerating her dialysis. She was also prophylactically intubated. In addition, the patient will have dialysis access placed today. I have scheduled her for hemodialysis also today for 4 hours. No acute events noted last night. OBJECTIVE: VITAL SIGNS: Blood pressure 118/64, heart rate 74, respiratory rate 17, O2 sats 97%. GENERAL: The patient is awake, arousable, comfortable, intubated on ventilator support. SKIN: Adequate turgor. HEENT: She has a slightly pale conjunctivae. Anicteric sclerae. NECK: No neck mass. No carotid bruits. No JVD. CHEST: No deformities. LUNGS: Decreased breath sounds. HEART: Normal sinus rhythm. No murmur. No gallops. No rubs. ABDOMEN: Globular, soft, nontender. No masses. EXTREMITIES: Positive for edema. No deformities. MEDICATIONS: Medications of November 17, 2019, reviewed. LABORATORY DATA: Laboratories of November 17, 2019; white count 17.1, hemoglobin 8.3. Sodium 136, potassium 3.5, chloride 99, carbon dioxide 24, BUN 31, creatinine 4.63, calcium 7.4. ASSESSMENT AND PLAN: 1. Pneumonia, currently on IV antibiotics. 2. Diabetic ketoacidosis, clinically much improved. 3. Chronic renal failure/acute kidney injury. Continue daily hemodialysis. Again, we plan to max out fluid removal as tolerated by the patient. 4. Agree with current management. Job ID: [id number]
[2019-11-17] MEDS: Cefepime 0.5 GM, Admixture Fee 1 EACH in Sodium Chloride 0.9% 100 ML IVPB SCH ×2 (09:14→22:13)
[2019-11-17] MEDS ORDERED: Heparin 10,000 UNITS/1 ML VIAL ONE (09:29)
[2019-11-17] MEDS ORDERED: Heparin 5,000 UNITS/ML VIAL ONE (09:29)
[2019-11-17] MEDS ORDERED: Bupivacaine 0.25% HCL 30 ML VIAL ONE (09:29)
[2019-11-17] MEDS ORDERED: Lidocaine 2% w/Epinephrine 1:200K 20 ML VIAL ONE (09:29)
[2019-11-17] MEDS ORDERED: Protamine Sulfate 50 MG/5 ML VIAL ONE (09:29)
--- NOTE | 2019-11-17 09:39 | PRG ---
DATE OF SERVICE: 11/17/2019 SUBJECTIVE: Steff Chacon is scheduled to undergo dialysis access today in the OR. OBJECTIVE: VITAL SIGNS: Pulse 79, blood pressure saturations 96%, respirations 20, 40% FiO2, 5 of PEEP. GENERAL: She is awake, responsive, no urine output. CHEST: Decreased breath sounds. Crackles bilaterally. CARDIAC: Normal S1 and S2. No gallops. ABDOMEN: No masses. LABORATORY DATA: White count is 17,000, neutrophils 68, bands 22, hemoglobin and hematocrit of 8 and 26, and platelet count is normal. PO2 is 55, pCO2 30, 40%, bicarb is 24, creatinine 4.6. ASSESSMENT: Diabetes, renal failure, respiratory failure, fluid overload, worsening pneumonia, leukocytosis, and left shift. PLAN: Continue antibiotics. Continue neb treatments. Surprisingly all cultures are negative. We will wean postsurgery. One half hour of critical care time. Job ID: [id number]
[2019-11-17] MEDS ORDERED: Ketamine 50 MG/ML (10ML VIAL) ONE (09:57)
--- NOTE | 2019-11-17 10:30 | PDOC.HOSPP ---
- Subjective Encounter Date: 11/17/19 Subjective: Intubated. Awakens easily and will communicate. Indicates she is ok and understands her situation. - Objective Vital Signs & Weight: Vital Signs (12 hours) Temp Pulse Resp BP Pulse Ox 11/17/19 09:54 98.9 F 13 97 11/17/19 09:00 13 97 11/17/19 07:27 13 97 11/17/19 07:00 99.0 F 80 132/57 L 11/17/19 06:36 80 132/57 L 11/17/19 06:00 20 11/17/19 04:00 99.6 F 18 11/17/19 02:35 80 119/60 11/17/19 02:00 19 11/17/19 00:25 79 133/57 L 11/17/19 00:00 99.2 F 11/16/19 23:50 23 H Weight Admit Weight 190 lb 4.143 oz Weight 190 lb 4.143 oz Most Recent Monitor Data Heart Rate from ECG 81 NIBP 135/61 NIBP BP-Mean 85 Respiration from ECG 21 SpO2 98 I&O: 11/16/19 11/17/19 11/18/19 06:59 06:59 06:59 Intake Total 1863.7 1336.8 0 Output Total 50 410 30 Balance 1813.7 926.8 -30 Result Diagrams: 11/17/19 03:40 11/17/19 03:40 Additional Labs: Accuchecks 11/17/19 11/16/19 11/16/19 05:35 23:42 17:20 POC Glucose 144 H 205 H 191 H 11/16/19 12:04 POC Glucose 143 H Hospitalist ROS - Medication Medications: Active Medications Generic Name Dose Route Start Last Admin Trade Name Freq PRN Reason Stop Dose Admin Famotidine 20 mg 11/15/19 09:00 11/17/19 07:49 Pepcid PO Not Given DAILY [facility] Famotidine 20 mg 11/16/19 09:00 11/17/19 07:49 Pepcid SLOW IVP 20 mg DAILY ORIANA Administration Heparin Sodium (Porcine) 5,000 units 11/14/19 15:00 11/17/19 07:49 Heparin SC Not Given TID [facility] Insulin Glargine 10 units/ 0.1 mls @ 0 mls/hr 11/15/19 09:00 11/17/19 07:50 Miscellaneous Medication SC 0.1 mls QAM ORIANA Administration Sodium Chloride 1,000 mls @ 0 mls/hr 11/15/19 08:30 11/17/19 06:48 1/2 Normal Saline IV 1,000 mls .Q0M ORIANA Administration TKO Fentanyl Citrate 2,000 mcg/ 100 mls @ 0 mls/hr 11/15/19 14:27 11/16/19 05:04 Sodium Chloride IV 12/15/19 14:27 100 mls INF ORIANA Administration Protocol Per Protocol Cefepime HCl 0.5 gm/ 100 mls @ 200 mls/hr 11/17/19 09:00 11/17/19 09:14 Miscellaneous Medication 1 IVPB 100 mls each/ Sodium Chloride Q12HR ORIANA Administration Insulin Human Regular 0 units 11/15/19 11:58 11/16/19 23:38 Humulin R SC 4 unit .MODERATE SLIDING SC PRN Administration MODERATE SLIDING SCALE Protocol Levofloxacin 250 mg 11/16/19 06:00 11/17/19 05:25 Levaquin PO 11/23/19 06:01 250 mg 0600 ORIANA Administration Lorazepam 2 mg 11/15/19 14:27 11/15/19 15:10 Ativan SLOW IVP 12/15/19 14:27 2 mg Q1H PRN Administration Breakthrough agitation Propofol 1,000 mg 11/15/19 14:27 11/17/19 05:25 Diprivan IV 12/15/19 14:27 1,000 mg INF PRN Administration TO ACHIEVE GOAL RASS Protocol - Exam General Appearance: NAD General - other findings: Intubated. Lightly sedated. Awakens easily. Heart: RRR, no murmur, no gallops, no rubs, normal peripheral pulses Respiratory - other findings: Persistent rales, R>L. Gastrointestinal: soft, non-distended, normal bowel sounds, no palpable masses Extremities: no cyanosis, no clubbing Extremities - other findings: [place], generalized puffy edema. Neurological: no focal deficits Musculoskeletal: generalized weakness Psychiatric: somnolent Hosp A/P (1) Acute respiratory failure with hypoxia Code(s): J96.01 - ACUTE RESPIRATORY FAILURE WITH HYPOXIA Status: Acute (2) Acute on chronic kidney failure Code(s): N17.9 - ACUTE KIDNEY FAILURE, UNSPECIFIED; N18.9 - CHRONIC KIDNEY DISEASE, UNSPECIFIED Status: Acute (3) Community acquired pneumonia Code(s): J18.9 - PNEUMONIA, UNSPECIFIED ORGANISM Status: Acute (4) Metabolic acidosis Code(s): E87.2 - ACIDOSIS Status: Resolved (5) DKA (diabetic ketoacidoses) Code(s): E11.10 - TYPE 2 DIABETES MELLITUS WITH KETOACIDOSIS WITHOUT COMA Status: Resolved (6) Hyponatremia Code(s): E87.1 - HYPO-OSMOLALITY AND HYPONATREMIA Status: Resolved (7) Diabetes mellitus Code(s): E11.9 - TYPE 2 DIABETES MELLITUS WITHOUT COMPLICATIONS Status: Acute (8) Anemia in chronic kidney disease Code(s): N18.9 - CHRONIC KIDNEY DISEASE, UNSPECIFIED; D63.1 - ANEMIA IN CHRONIC KIDNEY DISEASE Status: Acute - Plan Resp Failure: Combination of pneumonia, renal failure. Intubated and ventilated. Followed by Pulm. Acute on chronic renal failure: Indices did not improve with hydration. Dr. Sands initiated HD. Plan is for catheter placement and fistula. Pneumonia: Fairly severe R pneumonia. On Rocephin/Azithromycin and Levaquin. Cultures negative. DKA: Much of this is related to the infection and renal failure. Resolved. DM: POC glucose. SSI. Hyponatremia: Due to renal failure. Resolved. Anemia: Close to baseline. DVT prophylaxis: Heparin ordered. Held for procedure. GI prophylaxis: Pepcid 20 IV bid.
[2019-11-17] MEDS ORDERED: Sodium Chloride 0.9% 20 ML ONE (10:36)
--- NOTE | 2019-11-17 10:52 | RAD ---
PORTABLE CHEST: Date: 11/17/2019 HISTORY: Respiratory distress. FINDINGS: Endotracheal tube is in satisfactory position. NG tube is below the hemidiaphragm. The parenchymal in filtrative changes in the right mid and lower lung zones appear similar to the prior exam. Some left parahilar infiltrate is also seen. IMPRESSION: Essentially stable exam. POS: REGLA
[2019-11-17] MEDS ORDERED: Rocuronium Bromide 10 MG/ML (10ML VIAL) ONE (11:37)
[2019-11-17] MEDS ORDERED: CEFAZOLIN 1 GM VIAL ONE (11:37)
--- NOTE | 2019-11-17 13:27 | PDOC.OP ---
Operative Note - Operative Note Operative Note: DATE OF PROCEDURE: 11/17/2019 PROCEDURE: Placement of right internal jugular tunneled hemodialysis catheter with ultrasound and fluoroscopic guidance, and left Timur AV fistula. SURGEON: David Fam M.D. PREOPERATIVE DIAGNOSIS: Acute/Chronic renal failure. POSTOPERATIVE DIAGNOSIS: Acute/Chronic renal failure. HISTORY: Patient with chronic renal failure which has progressed to needing dialysis. Her rn compliance does not feel that her renal function will recover. A tunneled hemodialysis catheter for ongoing dialysis has been requested by the patients rn compliance, as well as a fistula for permanent access. PROCEDURE: After informed consent was obtained and appropriate preoperative antibiotics were administered, the patient was taken to the Operating Room, placed in the supine position and monitored anesthesia care was administered. The neck and chest were prepped and draped in a standard sterile fashion and the patient placed in Trendelenburg position. A sterile ultrasound probe was used to identify the patent compressible right IJ vein which was accessed under direct ultrasound guidance. A wire was threaded through the needle and confirmed by ultrasound to be within the patent compressible vessel with the tip in the vena cava by fluoroscopy. Local anesthesia was infused to the skin and subcutaneous tissues of the right neck and chest. An infraclavicular incision was made and a catheter tunneled from the infraclavicular to the right IJ access site. The right IJ was sequentially dilated over the wire following which a dilator and sheath were placed over the wire and the dilator and wire removed leaving the sheath in place. The catheter was tunneled through the sheath which was then split and removed leaving the catheter in place. This was confirmed by fluoroscopy to be in good position in the superior vena cava with no kinking of the course of the catheter. Both ports easily aspirated dark venous nonpulsatile blood and easily flushed without resistance. Heparin was instilled to the quantity specified on the hub, and the hub was secured to the skin with 3-0 nylon sutures. The skin incision at the neck was closed in two layers with 4-0 Monocryl suture and Dermabond dressings were placed. The skin at the exit site was snugged up around the catheter with 4-0 Monocryl suture and Dermabond was placed there as well. Once the Dermabond was dry, a Biopatch and Tegaderm dressing was placed at the exit site. Attention was then turned to creation of the arteriovenous fistula. The patient's arm was prepped and draped in standard sterile fashion. The palpable cephalic vein and radial artery were marked on the skin. The vein at the wrist was quite a distance from the radial artery but at the snuffbox it was in close proximity. Local anesthesia was infused to the skin at the level of the snuffbox and an incision was made between these 2 structures and dissection carried down to the cephalic vein. This was too small to support a fistula at the level of the snuffbox however. Local anesthesia was infused to the skin and subcutaneous tissues between the palpable cephalic vein and the radial artery at the wrist. Dissection was carried out to the cephalic vein which was felt to be of adequate caliber and quality to support an AV fistula. A fairly long length had to be dissected free in order to reach over to the radial artery. The vein was marked for orientation and ligated and divided distally. The end was spatulated and the vein was interrogated with cardiac dilators and easily accepted up to a 3.5 mm dilator. The vein was flushed with heparinized saline and clamped. The radial artery was identified and dissected free and was felt to be of adequate caliber and quality to support a fistula. This was dissected free. Heparin was administered systemically and allowed to circulate for 3 minutes. After the heparin had circulated for 3 minutes, the radial artery was clamped proximally and distally. An anterior arteriotomy was created with an 11 blade and extended with Glaser scissors. The vein was spatulated and an end-to-side anastomosis was created with excellent technical result. Prior to tying down the anastomosis, the arterial inflow was released flushing the anastomosis. The anastomosis was then secured and hemostasis was verified. Flow was established first through the fistula following which flow was restored through the artery. The patient had a palpable thrill in the cephalic vein as well as a good Doppler signal to the level of the antecubital fossa. The wound was irrigated and examined for hemostasis was again confirmed to be excellent. Due to the large potential space created by dissecting out the vein which was several centimeters from the artery, hemostatic foam was placed into the wound as a precaution. The subcutaneous tissues were reapproximated with a running 3-0 Monocryl sutures and the skin was closed with running 4-0 subcuticular Monocryl suture. The snuffbox incision was closed in the same way. Dermabond dressings were placed. Prior to leaving the operating room the fistula was again examined by Doppler and a good bruit confirmed. The patient was then taken to recovery in good condition. Estimated blood loss was minimal. There were no complications. There were no specimens.
--- NOTE | 2019-11-17 13:57 | RAD ---
EXAM: CHEST ONE VIEW HISTORY: Post dialysis catheter placement COMPARISON: 11/17/2019 at 0428 hours FINDINGS: Endotracheal tube and nasogastric tubes remain in place. There has been interval placement of a tunne led right internal jugular vein hemodialysis catheter with tip overlying the expected location of the SVC. No pneumothorax is seen. The interstitial and alveolar opacities involving the right midlung zone and right lung base are again seen with left perihilar interstitial opacities as well as patchy parenchymal density at the left lung base persist. Findings may be related to asymmetric pulmo nary edema versus infectious process. No other interval change. IMPRESSION: 1. Interval placement of a tunneled right internal jugular vein hemodialysis catheter. No pneumothora x or pleural fluid is appreciated. 2. Bilateral interstitial and alveolar opacities greater on the right which may be related to asymmet elmer pulmonary edema versus infectious process. Follow-up to resolution is recommended.
[2019-11-18 04:39] LABS: Anion Gap 17 mmol/L (10-20); BUN (Urea Nitrogen) 22 mg/dL (9.8-20.1); Calc. Creatinine Clearance 19 mL/min (70-130); Calcium 7.9 mg/dL (7.8-10.44); Carbon Dioxide 24 mmol/L (23-31); Chloride 99 mmol/L (98-107); Estimated GFR-MDRD 14; Glucose 161 mg/dL (80-115); Potassium 3.9 mmol/L (3.5-5.1); Sodium 136 mmol/L (136-145)
[2019-11-18] MEDS: Insulin Regular 300 UNITS/3 ML VIAL SC PRN (06:15)
[2019-11-18 07:13] LABS: Actual Bicarbonate (HCO3a) 23.2 mEq/L (22-28); Base Excess (BEa) -0.6 mEq/L (-2.0 to +3.0); CO2 Tension 34.4 mmHg (35.0-45.0); Calcium, Ionized 0.94 mmol/L (1.12-1.30); Carboxyhemoglobin (COHb) 1.5 gm% (0.0-3.0); Hemoglobin (Hb) 8.6 g/dL (12.0-16.0); O2 Tension (PaO2) 62.3 mmHg (> 80.0); Potassium - ABG Lab 3.69 mmol/L (3.70-5.30); pH, Arterial 7.45 (7.35-7.45)
[2019-11-18 07:14] LABS: Puncture Site RRA
[2019-11-18] MEDS ORDERED: DC Sedation Protocol FS ONE (07:20)
--- NOTE | 2019-11-18 07:49 | PRG ---
DATE OF SERVICE: 11/18/2019 TIME SPENT: Thirty five minutes of critical care time. SUBJECTIVE: The patient is doing well this morning. She remains intubated, but did get her vascular access placed yesterday by Dr. Fam. OBJECTIVE: VITAL SIGNS: Temperature 98.9, pulse 83, blood pressure 144/67. The 24-hour intake is 1308 and output 2000 by dialysis. HEENT: Unremarkable. NECK: No adenopathy or JVD. CHEST: Right tunneled IJ catheter noted. LUNGS: Clear to auscultation. CARDIAC: S1 and S2 regular. ABDOMEN: Soft. EXTREMITIES: No edema. LABORATORY DATA: ABG: The pH is 7.45, pCO2 of 34, pO2 of 62. White blood cell count 17, hematocrit 26, platelet count 162. Sodium 136, potassium 3.9, chloride 99, CO2 of 24, BUN 22, creatinine 3.8, glucose 161. Chest x-ray shows improved pulmonary edema. ET tube in good position. ASSESSMENT: 1. Acute respiratory failure, fluid overload. 2. Pneumonia versus pulmonary edema. 3. Chronic renal failure. PLAN: 1. Extubate and observe. 2. Continue antibiotics. 3. Continue dialysis as needed. Job ID: [id number]
--- NOTE | 2019-11-18 08:10 | RAD ---
EXAM: Portable chest PROVIDED CLINICAL HISTORY: Respiratory insufficiency COMPARISON: 11/17/2019 FINDINGS: Endotracheal tube has migrated distally, now approximating the right main bronchus. Additional signif icant interval change with respect to the prior examination is not apparent. IMPRESSION: ET tube positioning as above.
[2019-11-18] MEDS: Cefepime 0.5 GM, Admixture Fee 1 EACH in Sodium Chloride 0.9% 100 ML IVPB SCH ×2 (09:19→21:09)
[2019-11-18] MEDS: Heparin 5,000 UNITS/ML VIAL SC SCH ×3 (09:24→20:50)
[2019-11-18] MEDS: Insulin Glargine 10 UNITS in Pre-Filled Syringe 1 EACH SC SCH (09:24)
[2019-11-18] MEDS: Famotidine 20 MG TAB PO SCH (09:25)
[2019-11-18] MEDS ORDERED: traMADol HCl 50 MG TAB PO PRN (09:46)
--- NOTE | 2019-11-18 09:57 | PDOC.HOSPP ---
- Subjective Encounter Date: 11/18/19 Encounter Time: 09:55 Subjective: Ms. Chacon was seen today in follow-up of respiratory failure and acute on chronic kidney injury. She has just been extubated. She does not have any complaints. - Objective Vital Signs & Weight: Vital Signs (12 hours) Temp Pulse Resp BP Pulse Ox 11/18/19 09:00 94 L 11/18/19 08:00 94 L 11/18/19 07:35 99 11/18/19 07:00 85 147/63 H 99 11/18/19 06:00 14 11/18/19 04:00 98.9 F 11/18/19 03:48 80 11/18/19 02:00 16 11/18/19 00:00 98.0 F 11/17/19 22:48 77 138/57 L 11/17/19 22:00 16 Weight Admit Weight 190 lb 4.143 oz Weight 193 lb 1.999 oz Most Recent Monitor Data Heart Rate from ECG 86 NIBP 157/72 NIBP BP-Mean 100 Respiration from ECG 26 SpO2 93 I&O: 11/17/19 11/18/19 11/19/19 06:59 06:59 06:59 Intake Total 1336.8 1308 Output Total 410 80 0 Balance 926.8 1228 0 Result Diagrams: 11/17/19 03:40 11/18/19 03:50 Additional Labs: Accuchecks 11/17/19 11/17/19 23:01 17:04 POC Glucose 125 H 142 H Hospitalist ROS - Medication Medications: Active Medications Generic Name Dose Route Start Last Admin Trade Name Freq PRN Reason Stop Dose Admin Famotidine 20 mg 11/15/19 09:00 11/18/19 09:25 Pepcid PO 20 mg DAILY ORIANA Administration Heparin Sodium (Porcine) 5,000 units 11/14/19 15:00 11/18/19 09:24 Heparin SC 5,000 units TID ORIANA Administration Insulin Glargine 10 units/ 0.1 mls @ 0 mls/hr 11/15/19 09:00 11/18/19 09:24 Miscellaneous Medication SC 0.1 mls QAM ORIANA Administration Sodium Chloride 1,000 mls @ 0 mls/hr 11/15/19 08:30 11/17/19 06:48 1/2 Normal Saline IV 1,000 mls .Q0M ORIANA Administration TKO Cefepime HCl 0.5 gm/ 100 mls @ 200 mls/hr 11/17/19 09:00 11/18/19 09:19 Miscellaneous Medication 1 IVPB 100 mls each/ Sodium Chloride Q12HR ORIANA Administration Insulin Human Regular 0 units 11/15/19 11:58 11/18/19 06:15 Humulin R SC 3 unit .MODERATE SLIDING SC PRN Administration MODERATE SLIDING SCALE Protocol Levofloxacin 250 mg 11/16/19 06:00 11/17/19 05:25 Levaquin PO 11/23/19 06:01 250 mg 0600 ORIANA Administration - Exam Eye: PERRL Heart: RRR, no murmur, no gallops, no rubs, normal peripheral pulses Respiratory: CTAB (+ rales at the bases, and some rhonchi), no wheezes Gastrointestinal: soft, non-tender, non-distended, normal bowel sounds, no palpable masses Extremities: no cyanosis, no clubbing, 1+ LE edema (+ varicose veins blaterally) Hosp A/P (1) Acute on chronic kidney failure Code(s): N17.9 - ACUTE KIDNEY FAILURE, UNSPECIFIED; N18.9 - CHRONIC KIDNEY DISEASE, UNSPECIFIED Status: Acute (2) Acute respiratory failure with hypoxia Code(s): J96.01 - ACUTE RESPIRATORY FAILURE WITH HYPOXIA Status: Acute (3) Anemia in chronic kidney disease Code(s): N18.9 - CHRONIC KIDNEY DISEASE, UNSPECIFIED; D63.1 - ANEMIA IN CHRONIC KIDNEY DISEASE Status: Acute (4) Community acquired pneumonia Code(s): J18.9 - PNEUMONIA, UNSPECIFIED ORGANISM Status: Acute (5) Diabetes mellitus Code(s): E11.9 - TYPE 2 DIABETES MELLITUS WITHOUT COMPLICATIONS Status: Acute (6) Hypertension Code(s): I10 - ESSENTIAL (PRIMARY) HYPERTENSION Status: Acute - Plan * Acute respiratory failure with hypoxemia- due to volume overload and community acquired pneumonia * She has just been extubated * She has undergone dialysis with fluid removal * DKA- resolved * DM- blood glucose is stable- continue low dose insulin and SSI * HTN- blood pressure is a bit elevated- will re-start Carvediolol this evening , and Procardia, depending on her blood pressure readings * ABILIO- CPAP at night as needed
--- NOTE | 2019-11-18 10:31 | PRG ---
DATE OF SERVICE: 11/18/2019 SUBJECTIVE: Ms. Chacon is a 69-year-old black female, who was admitted initially for DKA with pneumonia. She has been intubated prophylactically and currently this morning, she has been extubated. Due to the worsening renal dysfunction, hemodialysis was initiated. I feel that she will need long-term dialysis. She voices no new complaints except for sore throat. OBJECTIVE: VITAL SIGNS: Blood pressure is 157/72, heart rate 86, respiratory rate 26, O2 saturation 93%. GENERAL: Patient is awake, comfortable, not in overt distress. SKIN: Adequate turgor. HEENT: Slightly pale conjunctivae. Anicteric sclerae. NECK: No neck mass. No carotid bruits. No JVD. CHEST: No deformities. LUNGS: Harsh breath sounds. HEART: Normal sinus rhythm. No murmurs, gallops, or rubs. ABDOMEN: Globular, soft, nontender. No masses. EXTREMITIES: No edema, no deformities. MEDICATIONS: Medications of November 18, 2019, reviewed. LABORATORY DATA: November 17, 2019, white count 14.1, hemoglobin 8.3. November 18, 2019, sodium 136, potassium 3.9, chloride 99, carbon dioxide 24, BUN 22, creatinine 3.85, glucose 161, calcium 7.9. ASSESSMENT AND PLAN: 1. Chronic renal failure/acute kidney injury-continue hemodialysis regimen. We will do a 3-hour hemodialysis with the patient for further fluid removal. Tolerating hemodialysis. My feeling is that this patient will need long-term dialysis. 2. Pneumonia, clinically improving. Continuing antibiotics. 3. Diabetic ketoacidosis, resolved. 4. Agree with current management. Job ID: [id number]
[2019-11-18] MEDS: Carvedilol 25 MG TAB PO SCH (20:50)
[2019-11-19 04:22] LABS: Anion Gap 15 mmol/L (10-20); BUN (Urea Nitrogen) 16 mg/dL (9.8-20.1); Calc. Creatinine Clearance 20 mL/min (70-130); Calcium 8.1 mg/dL (7.8-10.44); Carbon Dioxide 27 mmol/L (23-31); Chloride 101 mmol/L (98-107); Estimated GFR-MDRD 15; Glucose 74 mg/dL (80-115); Potassium 3.9 mmol/L (3.5-5.1); Sodium 139 mmol/L (136-145)
[2019-11-19 04:56] LABS: Band 11 % (5-11); Eosinophils 2 % (0-10); Hemoglobin 8.2 g/dL (12.0-16.0); Lymphocytes 11 % (21-51); MDiff Complete? YES; Mean Corpuscular HGB CONC 30.3 g/dL (32.0-36.0); Mean Corpuscular Hemoglobin 25.8 pg (27.0-31.0); Mean Corpuscular Volume 85.1 fL (78.0-98.0); Mean Platelet Volume 11.5 fL (7.4-10.4); Monocytes 5 % (0-10); Neutrophil 71 % (42-75); Platelet Count 181 thou/uL (130-400); RBC Distribution Width 18.7 % (11.5-14.5); White Blood Cell (WBC) Count 16.8 thou/uL (4.8-10.8)
[2019-11-19] MEDS: Carvedilol 25 MG TAB PO SCH ×2 (07:57→21:13)
[2019-11-19] MEDS: Famotidine 20 MG TAB PO SCH (07:57)
[2019-11-19] MEDS: Heparin 5,000 UNITS/ML VIAL SC SCH ×3 (07:58→20:32)
[2019-11-19] MEDS: Insulin Glargine 10 UNITS in Pre-Filled Syringe 1 EACH SC SCH (08:03)
[2019-11-19] MEDS: Cefepime 0.5 GM, Admixture Fee 1 EACH in Sodium Chloride 0.9% 100 ML IVPB SCH ×2 (09:57→21:13)
--- NOTE | 2019-11-19 10:24 | PRG ---
DATE OF SERVICE: 11/19/2019 SUBJECTIVE: The patient has done well since extubation yesterday. She says she is ready to advance her diet. OBJECTIVE: VITAL SIGNS: Temperature 98.8, pulse 79, blood pressure 153/70, O2 saturation 95%. HEENT: Unremarkable. NECK: No adenopathy or JVD. CHEST: Clear. CARDIAC: S1, S2. Regular. ABDOMEN: Soft. EXTREMITIES: No edema. LABORATORY DATA: Sodium 139, potassium 3.9, BUN 16, creatinine 3.6, glucose 74, white cell count 16.8, hematocrit 27.2, and platelet count 181. ASSESSMENT: 1. Status post respiratory failure requiring mechanical ventilation. 2. Pneumonia versus pulmonary edema-improved. PLAN: The patient will be transferred to the medical floor. We will advance her diet. She will continue antibiotics. Job ID: [id number]
--- NOTE | 2019-11-19 10:40 | PRG ---
DATE OF SERVICE: 11/19/2019 SUBJECTIVE: Ms. Chacon is a 69-year-old black female, who was initially admitted for DKA with pneumonia. She was subsequently intubated. She was initiated on dialysis due to the volume overload and progressive azotemia. She received dialysis yesterday and she is currently extubated. She is feeling much better today. OBJECTIVE: VITAL SIGNS: Blood pressure 153/70, heart rate 79, respiratory rate 19, O2 saturation 95%. GENERAL: Awake, alert, comfortable. Not in distress. SKIN: Adequate turgor. HEENT: Pale conjunctivae. Anicteric sclerae. NECK: No neck mass. No carotid bruits. No JVD. CHEST: No deformities. LUNGS: Clear breath sounds. HEART: Normal sinus rhythm. No murmur. No gallops. No rubs. ABDOMEN: Globular, soft, nontender. No masses. EXTREMITIES: No edema. No deformities. MEDICATIONS: Of November 19, 2019, reviewed. LABORATORY DATA: Of November 19, 2019; sodium 139, potassium 3.9, chloride 101, carbon dioxide 27, BUN 16, creatinine 3.65, glucose 74, calcium 8.1. White count 16.8, hemoglobin 8.2. ASSESSMENT/PLAN: 1. Pneumonia, on antibiotics, clinically improving. 2. Acute kidney injury/chronic renal failure-the patient currently on regular dialysis. No indication for any dialysis today. Consider scheduling for dialysis on a Wednesday, , and Wednesday dialysis regimen. Again, fluid removal as tolerated. 3. Anemia. We will resume Epogen when the infection is much improved. Job ID: [id number]
--- NOTE | 2019-11-19 12:25 | PDOC.HOSPP ---
- Subjective Encounter Date: 11/19/19 Encounter Time: 12:24 Subjective: Ms. Chacon was seen today in follow-up of respiratory failure dueto volume overload and pneumonia. She says she feels ok, no complaints. - Objective Vital Signs & Weight: Vital Signs (12 hours) Temp Pulse Ox 11/19/19 12:00 95 11/19/19 11:00 95 11/19/19 10:00 95 11/19/19 09:00 95 11/19/19 08:00 95 11/19/19 07:03 95 11/19/19 07:00 98.8 F 11/19/19 04:00 98.8 F Weight Admit Weight 190 lb 4.143 oz Weight 193 lb 1.999 oz Most Recent Monitor Data Heart Rate from ECG 85 NIBP 140/98 NIBP BP-Mean 112 Respiration from ECG 22 SpO2 96 I&O: 11/18/19 11/19/19 11/20/19 06:59 06:59 06:59 Intake Total 1308 1008 508 Output Total 80 145 0 Balance 1228 863 508 Result Diagrams: 11/19/19 03:37 11/19/19 03:37 Additional Labs: Accuchecks 11/18/19 11/18/19 21:05 18:26 POC Glucose 129 H 87 Hospitalist ROS - Medication Medications: Active Medications Generic Name Dose Route Start Last Admin Trade Name Freq PRN Reason Stop Dose Admin Carvedilol 25 mg 11/18/19 21:00 11/19/19 07:57 Coreg PO 25 mg BID ORIANA Administration Famotidine 20 mg 11/15/19 09:00 11/19/19 07:57 Pepcid PO 20 mg DAILY ORIANA Administration Heparin Sodium (Porcine) 5,000 units 11/14/19 15:00 11/19/19 07:58 Heparin SC 5,000 units TID ORIANA Administration Insulin Glargine 10 units/ 0.1 mls @ 0 mls/hr 11/15/19 09:00 11/19/19 08:03 Miscellaneous Medication SC 0.1 mls QAM ORIANA Administration Sodium Chloride 1,000 mls @ 0 mls/hr 11/15/19 08:30 11/17/19 06:48 1/2 Normal Saline IV 1,000 mls .Q0M ORIANA Administration TKO Cefepime HCl 0.5 gm/ 100 mls @ 200 mls/hr 11/17/19 09:00 11/19/19 09:57 Miscellaneous Medication 1 IVPB 100 mls each/ Sodium Chloride Q12HR ORIANA Administration Insulin Human Regular 0 units 11/15/19 11:58 11/18/19 06:15 Humulin R SC 3 unit .MODERATE SLIDING SC PRN Administration MODERATE SLIDING SCALE Protocol Levofloxacin 250 mg 11/16/19 06:00 11/19/19 06:09 Levaquin PO 11/23/19 06:01 250 mg 0600 ORIANA Administration - Exam Eye: PERRL, anicteric sclera Heart: RRR, no murmur, no gallops, no rubs, normal peripheral pulses Respiratory: CTAB (+ rales at both bases) Gastrointestinal: soft, non-tender, non-distended, normal bowel sounds, no palpable masses Extremities: no cyanosis, no clubbing, 1+ LE edema Hosp A/P (1) Acute on chronic kidney failure Code(s): N17.9 - ACUTE KIDNEY FAILURE, UNSPECIFIED; N18.9 - CHRONIC KIDNEY DISEASE, UNSPECIFIED Status: Acute (2) Acute respiratory failure with hypoxia Code(s): J96.01 - ACUTE RESPIRATORY FAILURE WITH HYPOXIA Status: Acute (3) Anemia in chronic kidney disease Code(s): N18.9 - CHRONIC KIDNEY DISEASE, UNSPECIFIED; D63.1 - ANEMIA IN CHRONIC KIDNEY DISEASE Status: Acute (4) Community acquired pneumonia Code(s): J18.9 - PNEUMONIA, UNSPECIFIED ORGANISM Status: Acute (5) Diabetes mellitus Code(s): E11.9 - TYPE 2 DIABETES MELLITUS WITHOUT COMPLICATIONS Status: Acute (6) Hypertension Code(s): I10 - ESSENTIAL (PRIMARY) HYPERTENSION Status: Acute - Plan * Acute respiratory failure with hypoxemia- due to volume overload and community acquired pneumonia * She continues to do very well * Continue dialysis as indicated, and she is being prepared for Outpatient Dialysis * DM- blood glucose is stable- she had a low normal reading this morning- will cut back the dose of Lantus * HTN- blood pressure is a bit elevated- will re-start Procardia tomorrow * ABILIO- CPAP at night as needed
[2019-11-20 07:17] LABS: Anion Gap 16 mmol/L (10-20); BUN (Urea Nitrogen) 29 mg/dL (9.8-20.1); Calc. Creatinine Clearance 13 mL/min (70-130); Calcium 8.5 mg/dL (7.8-10.44); Carbon Dioxide 25 mmol/L (23-31); Chloride 100 mmol/L (98-107); Estimated GFR-MDRD 9; Glucose 72 mg/dL (80-115); Potassium 3.8 mmol/L (3.5-5.1); Sodium 137 mmol/L (136-145)
[2019-11-20 08:36] LABS: Hemoglobin 7.8 g/dL (12.0-16.0); Mean Corpuscular HGB CONC 29.9 g/dL (32.0-36.0); Mean Corpuscular Hemoglobin 25.5 pg (27.0-31.0); Mean Corpuscular Volume 85.2 fL (78.0-98.0); Mean Platelet Volume 10.5 fL (7.4-10.4); Platelet Count 176 thou/uL (130-400); RBC Distribution Width 18.8 % (11.5-14.5); Red Blood Cell (RBC) Count 3.07 mill/uL (4.20-5.40); White Blood Cell (WBC) Count 14.4 thou/uL (4.8-10.8)
[2019-11-20] MEDS: NIFEdipine XL 90 MG TAB PO SCH (08:51)
[2019-11-20] MEDS: Famotidine 20 MG TAB PO SCH (08:52)
[2019-11-20] MEDS: Cefepime 0.5 GM, Admixture Fee 1 EACH in Sodium Chloride 0.9% 100 ML IVPB SCH ×2 (08:52→20:00)
[2019-11-20] MEDS: Heparin 5,000 UNITS/ML VIAL SC SCH ×3 (08:52→20:00)
[2019-11-20] MEDS: Carvedilol 25 MG TAB PO SCH ×2 (08:52→20:00)
[2019-11-20] MEDS: Insulin Glargine 8 UNITS in Pre-Filled Syringe 1 EACH SC SCH (08:53)
[2019-11-20] MEDS ORDERED: Tuberculin PPD 0.1 ML VIAL I-DERMAL SCH ×2 (09:45→10:15)
--- NOTE | 2019-11-20 09:56 | PRG ---
DATE OF SERVICE: 11/20/2019 SUBJECTIVE: Ms. Chacon is a 69-year-old black female, who was initially admitted for DKA. She was found to have pneumonia. She has also been ruled out for COVID. We initiated dialysis due to progressive azotemia and volume overload. She is feeling better. She was intubated and has also been extubated. No new complaints today except for decreased hearing. She tells me this is chronic in nature, but has worsen with this hospitalization. OBJECTIVE: VITAL SIGNS: Blood pressure 171/65, heart rate 83, respiratory rate 20, temperature 98.4, O2 saturation 91% on room air. GENERAL: Awake, alert, comfortable, not in overt distress. SKIN: Adequate turgor. HEENT: Slightly pale conjunctivae. Anicteric sclerae. No neck mass. No carotid bruits. No JVD. LUNGS: Decreased breath sounds. HEART: Normal sinus rhythm. No murmurs, no gallops, no rubs. ABDOMEN: Globular, soft, nontender. No masses. EXTREMITIES: No edema. MEDICATIONS: Medications of November 20, 2019, reviewed. LABORATORY DATA: Laboratories of November 20, 2019; hemoglobin 7.8, white count 14.4. Potassium 3.8, BUN 29, creatinine 5.62. ASSESSMENT AND PLAN: End-stage renal disease/chronic renal failure. Continue 3 times in a week hemodialysis. Again, fluid removal as tolerated. No indication for any emergent hemodialysis today. Awaiting outpatient dialysis placement. Agree with current management. Job ID: [id number]
--- NOTE | 2019-11-20 10:05 | PRG ---
DATE OF SERVICE: 11/20/2019 SUBJECTIVE: This morning, she is awake, alert, and responsive. She is better. OBJECTIVE: VITAL SIGNS: Temperature 98, pulse 83, blood pressure on room air. CHEST: No wheezing or crackles. CARDIAC: Normal S1 and S2. LABORATORY DATA: White count 14,000. Creatinine is 5.62. ASSESSMENT AND PLAN: 1. Renal failure, on dialysis. 2. Respiratory failure status post extubation, possibly superimposed pneumonia. Pulmonary martinez, continue PT and supportive care, eventually placement. Job ID: [id number]
[2019-11-20 10:07] LABS: Band 11 % (5-11); Eosinophils 1 % (0-10); Hypochromia SLIGHT = 6-15 cells (100X) (0-5/hpf); Lymphocytes 8 % (21-51); MDiff Complete? YES; Monocytes 1 % (0-10); Myelocyte 2 % (0-0); Neutrophil 77 % (42-75); Platelet Morphology Comment Appears Adequate; Polychromasia SLIGHT = 2-3 cells (100X) (0-2/hpf)
--- NOTE | 2019-11-20 11:10 | PQF ---
CLINICAL DOCUMENTATION IMPROVEMENT CLARIFICATION FORM: ICD-10 Updated PLEASE DO AN ADDENDUM TO THE PROGRESS NOTE WITH ANY DOCUMENTATION UPDATES OR ADDITIONS AND CARRY THROUGH TO DC SUMMARY. THANK YOU. DATE: 11/20/2019; 11/21/2019 ATTN: Dr. Bone Please exercise your independent, professional judgment in responding to the clarification form. Clinical indicators are provided on the bottom of this form for your review Please check appropriate box(es): [ ] Sepsis present on admission [ ] Sepsis NOT present on admission [ ] Unable to determine Due to: [X ] Severe sepsis present on admission [ ] Severe Sepsis NOT present on admission [ ] Unable to determine with acute organ dysfunction of: __renal [ ] Localized infection without sepsis [ ] Other diagnosis [ ] Unable to determine For continuity of documentation, please document condition throughout progress notes and discharge summary. Thank You. CLINICAL INDICATORS - SIGNS / SYMPTOMS / LABS / RESULTS AND LOCATION IN MR H&P 11/13: VS: BP 97/53 to 107/51, pulse 73, resp. 26-32 O2 sat 95% on 3L Lab: White count 16.6 I/P: DKA. RYENA on CKD 4. Acute hypoxic respiratory failure due to underlying pneumonia. 11/16 (Meg) Lab: White count 17,000, neutrophils 68, bands 22. PO2 is 55 Assess: Diabetes, renal failure, respiratory failure, fluid overload , worsening pneumonia, leukocytosis and left shift 11/18 (Kenneth) Pneumonia vs pulmonary edema-improved 11/19 (Lizandro) Acute respiratory failure with hypoxemia - due to volume overload and community acquired pneumonia. RISKS: H&P 11/13: PMH diabetes, HTN, CKD. I/P: DKA. REYNA on CKD 4. Acute hypoxic resp. failure due to underlying pneuimonia. TREATMENT: Order 11/14 Resp: Vent Continuous. Extubated 11/18/2019 Order 11/14: Cult & GS . Resp. Bronchial washing MAR: Order 11/14 - 11/22: Levaquin 250 mg po MAR: Order 11/16 Cefepime 0.5 gm IV q 12 hr Op Note 11/16: Placement r IJ tunneled HD catheter , Left Timur AV Fistula Thank you, Radha (This form is maintained as a part of the permanent medical record) 2014 [employer], [employer]. All Rights Reserved Radha Campos RN, BSN [email or web address] [facility]
[2019-11-20] MEDS: Insulin Regular 300 UNITS/3 ML VIAL SC PRN ×2 (12:30→16:09)
--- NOTE | 2019-11-20 12:56 | PDOC.HOSPP ---
- Subjective Encounter Date: 11/20/19 Encounter Time: 12:54 Subjective: Mr. Chacon was seen today in follow-up of respiratory failure and ESRD. She says she feels ok, other than occasional soreness in the right side when she breathes. - Objective Vital Signs & Weight: Vital Signs (12 hours) Temp Pulse Resp BP BP Pulse Ox 11/20/19 11:13 98.3 F 86 20 160/69 H 91 L 11/20/19 09:00 95 11/20/19 08:51 83 171/65 H 11/20/19 08:00 98.4 F 83 20 171/65 H 91 L 11/20/19 04:00 98.6 F 82 18 172/69 H 94 L Weight Admit Weight 190 lb 4.143 oz Weight 193 lb 1.999 oz Most Recent Monitor Data Heart Rate from ECG 85 NIBP 160/70 NIBP BP-Mean 100 Respiration from ECG 22 SpO2 95 I&O: 11/19/19 11/20/19 11/21/19 06:59 06:59 06:59 Intake Total 1008 508 Output Total 145 100 Balance 863 408 Result Diagrams: 11/20/19 08:11 11/20/19 06:16 Additional Labs: Accuchecks 11/20/19 11/20/19 11/19/19 11:03 05:17 19:52 POC Glucose 176 H 77 227 H 11/19/19 17:12 POC Glucose 132 H Hospitalist ROS - Medication Medications: Active Medications Generic Name Dose Route Start Last Admin Trade Name Freq PRN Reason Stop Dose Admin Carvedilol 25 mg 11/18/19 21:00 11/20/19 08:52 Coreg PO 25 mg BID ORIANA Administration Famotidine 20 mg 11/15/19 09:00 11/20/19 08:52 Pepcid PO 20 mg DAILY ORIANA Administration Heparin Sodium (Porcine) 5,000 units 11/14/19 15:00 11/20/19 08:52 Heparin SC 5,000 units TID ORIANA Administration Sodium Chloride 1,000 mls @ 0 mls/hr 11/15/19 08:30 11/17/19 06:48 1/2 Normal Saline IV 1,000 mls .Q0M ORIANA Administration TKO Cefepime HCl 0.5 gm/ 100 mls @ 200 mls/hr 11/17/19 09:00 11/20/19 08:52 Miscellaneous Medication 1 IVPB 100 mls each/ Sodium Chloride Q12HR ORIANA Administration Insulin Glargine 8 units/ 0.08 mls @ 0 mls/hr 11/20/19 09:00 11/20/19 08:53 Miscellaneous Medication SC Not Given QAM ORIANA Insulin Human Regular 0 units 11/15/19 11:58 11/20/19 12:30 Humulin R SC 2 unit .MODERATE SLIDING SC PRN Administration MODERATE SLIDING SCALE Protocol Levofloxacin 250 mg 11/16/19 06:00 11/20/19 05:24 Levaquin PO 11/23/19 06:01 250 mg 0600 ORIANA Administration Nifedipine 90 mg 11/20/19 09:00 11/20/19 08:51 Procardia Xl PO 90 mg DAILY ORIANA Administration Sodium Chloride 10 ml 11/14/19 11:00 11/20/19 08:54 Flush - Normal Saline IVF 10 ml PRN PRN Administration Saline Flush - Exam Eye: PERRL, anicteric sclera Heart: RRR, no murmur, no gallops, no rubs, normal peripheral pulses Respiratory: CTAB (+ coarse breath sounds bilaterally), no wheezes, no rales, no ronchi, normal chest expansion Gastrointestinal: soft, non-tender, non-distended, normal bowel sounds, no palpable masses Extremities: no cyanosis, 1+ LE edema Hosp A/P (1) Acute on chronic kidney failure Code(s): N17.9 - ACUTE KIDNEY FAILURE, UNSPECIFIED; N18.9 - CHRONIC KIDNEY DISEASE, UNSPECIFIED Status: Acute (2) Acute respiratory failure with hypoxia Code(s): J96.01 - ACUTE RESPIRATORY FAILURE WITH HYPOXIA Status: Acute (3) Anemia in chronic kidney disease Code(s): N18.9 - CHRONIC KIDNEY DISEASE, UNSPECIFIED; D63.1 - ANEMIA IN CHRONIC KIDNEY DISEASE Status: Acute (4) Community acquired pneumonia Code(s): J18.9 - PNEUMONIA, UNSPECIFIED ORGANISM Status: Acute (5) Diabetes mellitus Code(s): E11.9 - TYPE 2 DIABETES MELLITUS WITHOUT COMPLICATIONS Status: Acute (6) Hypertension Code(s): I10 - ESSENTIAL (PRIMARY) HYPERTENSION Status: Acute - Plan * Acute respiratory failure with hypoxemia- due to volume overload and community acquired pneumonia * ESRD- stable- arrangements for outpatient dialysis are in progress * Continue dialysis as indicated, and she is being prepared for Outpatient Dialysis * DM- blood glucose is stable * HTN- blood pressure - continue her home medications as well as prn meds * ABILIO- CPAP at night as needed
[2019-11-20 14:11] VITALS: BMI 34.2
[2019-11-20] MEDS ORDERED: Acetaminophen 325 MG TAB PO PRN (19:56)
[2019-11-21 06:32] LABS: Anion Gap 16 mmol/L (10-20); BUN (Urea Nitrogen) 40 mg/dL (9.8-20.1); Calc. Creatinine Clearance 11 mL/min (70-130); Calcium 8.4 mg/dL (7.8-10.44); Carbon Dioxide 24 mmol/L (23-31); Chloride 99 mmol/L (98-107); Estimated GFR-MDRD 7; Glucose 128 mg/dL (80-115); Potassium 3.7 mmol/L (3.5-5.1); Sodium 135 mmol/L (136-145)
[2019-11-21 06:38] LABS: Hemoglobin 7.4 g/dL (12.0-16.0); Mean Corpuscular HGB CONC 29.2 g/dL (32.0-36.0); Mean Corpuscular Hemoglobin 24.8 pg (27.0-31.0); Mean Platelet Volume 11.1 fL (7.4-10.4); Platelet Count 180 thou/uL (130-400); Red Blood Cell (RBC) Count 2.97 mill/uL (4.20-5.40); White Blood Cell (WBC) Count 13.9 thou/uL (4.8-10.8)
[2019-11-21 08:20] LABS: Band 13 % (5-11); Eosinophils 2 % (0-10); Lymphocytes 16 % (21-51); MDiff Complete? YES; Monocytes 2 % (0-10); Neutrophil 66 % (42-75); Platelet Morphology Comment Appears Adequate; Polychromasia SLIGHT = 2-3 cells (100X) (0-2/hpf)
[2019-11-21] MEDS: Famotidine 20 MG TAB PO SCH (09:17)
[2019-11-21] MEDS: NIFEdipine XL 90 MG TAB PO SCH (09:18)
[2019-11-21] MEDS: Carvedilol 25 MG TAB PO SCH ×2 (09:18→20:27)
[2019-11-21] MEDS: Insulin Glargine 8 UNITS in Pre-Filled Syringe 1 EACH SC SCH (09:19)
[2019-11-21] MEDS: Heparin 5,000 UNITS/ML VIAL SC SCH ×3 (09:19→20:27)
--- NOTE | 2019-11-21 09:31 | PRG ---
DATE OF SERVICE: 11/21/2019 SUBJECTIVE: This morning, she is awake, alert, responsive, is in no further distress. OBJECTIVE: VITAL SIGNS: Temperature 98, pulse 84, respirations 14, saturations 90% on room air, and blood pressure 171/70. CHEST: No wheezing or crackles. CARDIAC: Normal S1, S2. No gallops. ABDOMEN: No mass. LABORATORY DATA: Creatinine is 7 and white count 30,000. ASSESSMENT: Acute renal failure, uncontrolled diabetes, non-resolving pneumonia, sepsis. I will discontinue antibiotics. DISPOSITION: As per primary care physician and Nephrology. Job ID: [id number]
[2019-11-21 09:50] LABS: Iron 48 ug/dL (50-170); Iron Binding Capacity, Total 138 mcg/dL (265-497)
--- NOTE | 2019-11-21 10:08 | PRG ---
DATE OF SERVICE: 11/21/2019 SUBJECTIVE: Ms. Chacon is a 69-year-old black female, who was initially admitted for DKA as well as superimposed acute pneumonia. Empiric IV antibiotics have been done. Pulmonary Medicine has evaluated this patient. In the interim, a cardiac echo showed a normal EF. We have initiated this patient dialysis due to volume overload and progressive azotemia. She is currently undergoing hemodialysis today. I placed her on maintenance hemodialysis. No other complaints. She is feeling better. OBJECTIVE: VITAL SIGNS: Blood pressure 171/70, heart rate 84, respiratory rate 14, temperature 98.3, O2 saturation 95% on room air. GENERAL: Awake, alert, comfortable, not in distress. SKIN: Adequate turgor. HEENT: Slightly pale conjunctivae. Anicteric sclerae. NECK: No neck mass. No carotid bruits. No JVD. CHEST: No deformities. LUNGS: Decreased breath sounds. HEART: Normal sinus rhythm. No murmur. No gallops or rubs. ABDOMEN: Globular, soft, nontender. No masses. EXTREMITIES: Trace edema. MEDICATIONS: November 21, 2019, was reviewed. LABORATORY DATA: November 21, 2019; white count 13.9, hemoglobin 7.4. Sodium 135, potassium 3.7, chloride 99, carbon dioxide 24, BUN 40, creatinine 7.07, glucose 128, calcium 8.4. ASSESSMENT AND PLAN: 1. End-stage renal disease/chronic renal failure-continuing three times a week hemodialysis with fluid removal with the patient. She is doing well and tolerating said treatment. 2. Anemia. Continue to observe, p.r.n. blood transfusion. 3. Pneumonia, clinically much improved. Pulmonary following. Currently, on IV antibiotics. Overall, agree with current management. 4. We will recheck basic metabolic panel and CBC in a.m. Job ID: [id number]
--- NOTE | 2019-11-21 18:06 | PDOC.HOSPP ---
- Subjective Encounter Date: 11/21/19 Encounter Time: 18:04 Subjective: Ms. Chacon was seen today in follow-up of ESRD. She says she feels better, no new complaints. She denies chest pain or difficulty breathing. - Objective Vital Signs & Weight: Vital Signs (12 hours) Temp Pulse Resp BP Pulse Ox 11/21/19 16:00 98.2 F 86 18 154/72 H 95 11/21/19 14:10 98.5 F 82 16 130/63 93 L 11/21/19 09:15 95 11/21/19 08:06 98.3 F 84 14 171/70 H 95 Weight Admit Weight 190 lb 4.143 oz Weight 193 lb 1.999 oz Most Recent Monitor Data Heart Rate from ECG 85 NIBP 160/70 NIBP BP-Mean 100 Respiration from ECG 22 SpO2 95 I&O: 11/20/19 11/21/19 11/22/19 06:59 06:59 06:59 Intake Total 508 1210 Output Total 100 Balance 408 1210 Result Diagrams: 11/21/19 05:32 11/21/19 05:32 Additional Labs: Accuchecks 11/21/19 11/21/19 11/21/19 15:54 14:34 05:09 POC Glucose 204 H 120 H 141 H 11/20/19 11/20/19 23:53 19:35 POC Glucose 148 H 193 H Hospitalist ROS - Medication Medications: Active Medications Generic Name Dose Route Start Last Admin Trade Name Freq PRN Reason Stop Dose Admin Acetaminophen 650 mg 11/20/19 19:56 11/20/19 20:01 Tylenol PO 650 mg Q4H PRN Administration Headache/Fever or Pain Carvedilol 25 mg 11/18/19 21:00 11/21/19 09:18 Coreg PO 25 mg BID ORIANA Administration Famotidine 20 mg 11/15/19 09:00 11/21/19 09:17 Pepcid PO 20 mg DAILY ORIANA Administration Heparin Sodium (Porcine) 5,000 units 11/14/19 15:00 11/21/19 15:12 Heparin SC 5,000 units TID ORIANA Administration Sodium Chloride 1,000 mls @ 0 mls/hr 11/15/19 08:30 11/17/19 06:48 1/2 Normal Saline IV 1,000 mls .Q0M ORIANA Administration TKO Insulin Glargine 8 units/ 0.08 mls @ 0 mls/hr 11/20/19 09:00 11/21/19 09:19 Miscellaneous Medication SC 0.08 mls QAM ORIANA Administration Insulin Human Regular 0 units 11/15/19 11:58 11/20/19 16:09 Humulin R SC 6 unit .MODERATE SLIDING SC PRN Administration MODERATE SLIDING SCALE Protocol Levofloxacin 250 mg 11/16/19 06:00 11/21/19 05:09 Levaquin PO 11/23/19 06:01 250 mg 0600 ORIANA Administration Nifedipine 90 mg 11/20/19 09:00 11/21/19 09:18 Procardia Xl PO 90 mg DAILY ORIANA Administration Sodium Chloride 10 ml 11/14/19 11:00 11/20/19 08:54 Flush - Normal Saline IVF 10 ml PRN PRN Administration Saline Flush Tramadol HCl 50 mg 11/18/19 09:46 11/21/19 02:36 Ultram PO 50 mg Q6H PRN Administration Moderate Pain (4-6) - Exam Eye: PERRL Heart: RRR, no murmur, no gallops, no rubs, normal peripheral pulses Respiratory: CTAB (+ rales at the right base) Gastrointestinal: soft, non-tender, non-distended, normal bowel sounds, no palpable masses Extremities: no cyanosis, no clubbing, no edema Hosp A/P (1) Acute on chronic kidney failure Code(s): N17.9 - ACUTE KIDNEY FAILURE, UNSPECIFIED; N18.9 - CHRONIC KIDNEY DISEASE, UNSPECIFIED Status: Acute (2) Acute respiratory failure with hypoxia Code(s): J96.01 - ACUTE RESPIRATORY FAILURE WITH HYPOXIA Status: Acute (3) Anemia in chronic kidney disease Code(s): N18.9 - CHRONIC KIDNEY DISEASE, UNSPECIFIED; D63.1 - ANEMIA IN CHRONIC KIDNEY DISEASE Status: Acute (4) Community acquired pneumonia Code(s): J18.9 - PNEUMONIA, UNSPECIFIED ORGANISM Status: Acute (5) Diabetes mellitus Code(s): E11.9 - TYPE 2 DIABETES MELLITUS WITHOUT COMPLICATIONS Status: Acute (6) Hypertension Code(s): I10 - ESSENTIAL (PRIMARY) HYPERTENSION Status: Acute - Plan * Acute respiratory failure with hypoxemia- she has been transitioned to oral Levaquin * DM- blood glucose is stable * HTN- blood pressure - continue her home medications as well as prn meds * ABILIO- CPAP at night as needed * Arrangements are in progress for outpatient dialysis
[2019-11-21] MEDS: Insulin Regular 300 UNITS/3 ML VIAL SC PRN (18:07)
[2019-11-22 06:12] LABS: Mean Corpuscular HGB CONC 29.2 g/dL (32.0-36.0); Mean Corpuscular Hemoglobin 24.5 pg (27.0-31.0); Mean Corpuscular Volume 83.9 fL (78.0-98.0); Mean Platelet Volume 11.3 fL (7.4-10.4); Platelet Count 175 thou/uL (130-400); RBC Distribution Width 18.8 % (11.5-14.5); Red Blood Cell (RBC) Count 3.27 mill/uL (4.20-5.40); White Blood Cell (WBC) Count 14.1 thou/uL (4.8-10.8)
[2019-11-22 06:24] LABS: Anion Gap 17 mmol/L (10-20); BUN (Urea Nitrogen) 28 mg/dL (9.8-20.1); Calc. Creatinine Clearance 16 mL/min (70-130); Calcium 8.6 mg/dL (7.8-10.44); Carbon Dioxide 26 mmol/L (23-31); Chloride 95 mmol/L (98-107); Estimated GFR-MDRD 11; Glucose 111 mg/dL (80-115); Potassium 3.8 mmol/L (3.5-5.1); Sodium 134 mmol/L (136-145)
[2019-11-22 06:53] LABS: Band 4 % (5-11); Eosinophils 2 % (0-10); Hypochromia SLIGHT = 6-15 cells (100X) (0-5/hpf); Large Platelets SLIGHT; Lymphocytes 18 % (21-51); MDiff Complete? YES; Metamyelocyte 2 % (0-0); Monocytes 9 % (0-10); Myelocyte 1 % (0-0); Neutrophil 64 % (42-75); Platelet Morphology Comment Appears Adequate
[2019-11-22] MEDS: Famotidine 20 MG TAB PO SCH (08:56)
[2019-11-22] MEDS: Insulin Glargine 8 UNITS in Pre-Filled Syringe 1 EACH SC SCH (08:57)
[2019-11-22] MEDS: Carvedilol 25 MG TAB PO SCH ×2 (08:57→20:40)
[2019-11-22] MEDS: Heparin 5,000 UNITS/ML VIAL SC SCH ×3 (08:57→20:40)
[2019-11-22] MEDS ORDERED: READ PPD TEST SITE PO SCH (09:00)
--- NOTE | 2019-11-22 09:11 | PRG ---
DATE OF SERVICE: 11/22/2019 SUBJECTIVE: This morning, she is awake, alert, responsive, in no distress. OBJECTIVE: VITAL SIGNS: Saturations are 90% on room air, pulse 70, respiratory rate 18, and blood pressure 130/80. CHEST: No wheezing or crackles. CARDIAC: Normal S1 and S2. No gallops. ABDOMEN: No mass. ASSESSMENT: 1. Respiratory failure secondary to fluid overload. 2. Diabetes. She is much improved. Disposition as per primary care physician. Job ID: [id number] MTDD
[2019-11-22] MEDS: NIFEdipine XL 90 MG TAB PO SCH (09:32)
--- NOTE | 2019-11-22 09:37 | PRG ---
DATE OF SERVICE: SUBJECTIVE: Ms. Chacon is a 69-year-old black female, who was admitted for DKA and pneumonia. She is doing better. She was initiated on dialysis due to her volume overload and progressive azotemia. She is tolerating said dialysis. No new complaints today. No chest pain or shortness of breath. OBJECTIVE: VITAL SIGNS: Blood pressure 118/70, heart rate 87, respiratory rate 18, temperature 98.9, O2 saturation 98%. GENERAL: Awake, alert, comfortable, not in distress. SKIN: Adequate turgor. HEENT: Pinkish conjunctivae. Anicteric sclerae. No neck mass. No carotid bruits. No JVD. CHEST: No deformities. LUNGS: Clear breath sounds. HEART: Normal sinus rhythm. No murmur. No gallops. No rubs. ABDOMEN: Globular, soft, nontender. No masses. EXTREMITIES: No edema. No deformities. MEDICATIONS: Medications of November 22, 2019, was reviewed. LABORATORY DATA: Laboratories of November 22, 2019; white count 14.1, hemoglobin 8. Sodium 134, potassium 3.8, chloride 95, carbon dioxide 26, BUN 28, creatinine 4.65, glucose 111, calcium 8.6. ASSESSMENT AND PLAN: 1. End-stage renal disease/chronic renal failure, continuing 3 times a week hemodialysis regimen, tolerating said treatment. Fluid removal only as tolerated. 2. Anemia. Continue to check CBC, p.r.n. blood transfusion. 3. Pneumonia, currently on p.o. antibiotics. 4. Diabetic ketoacidosis, resolved. Awaiting outpatient dialysis placement. Job ID: [id number]
--- NOTE | 2019-11-22 10:08 | PDOC.HOSPP ---
- Subjective Encounter Date: 11/22/19 Encounter Time: 09:45 Subjective: Ms Chacon is seen as a follow up for pneumonia, ESRD, and resolved DKA. She states she is feeling great and ready to go home. She had dialysis yesterday which she tolerated well. - Objective Vital Signs & Weight: Vital Signs (12 hours) Temp Pulse Resp BP Pulse Ox 11/22/19 08:00 98.9 F 87 18 118/70 98 Weight Admit Weight 190 lb 4.143 oz Weight 193 lb 1.999 oz Most Recent Monitor Data Heart Rate from ECG 85 NIBP 160/70 NIBP BP-Mean 100 Respiration from ECG 22 SpO2 95 I&O: 11/21/19 11/22/19 11/23/19 06:59 06:59 06:59 Intake Total 1210 600 Balance 1210 600 Result Diagrams: 11/22/19 05:31 11/22/19 05:31 Additional Labs: Accuchecks 11/22/19 11/22/19 11/21/19 05:40 00:24 18:08 POC Glucose 115 H 133 H 245 H 11/21/19 11/21/19 15:54 14:34 POC Glucose 204 H 120 H Hospitalist ROS - Medication Medications: Active Medications Generic Name Dose Route Start Last Admin Trade Name Freq PRN Reason Stop Dose Admin Acetaminophen 650 mg 11/20/19 19:56 11/20/19 20:01 Tylenol PO 650 mg Q4H PRN Administration Headache/Fever or Pain Carvedilol 25 mg 11/18/19 21:00 11/22/19 08:57 Coreg PO 25 mg BID ORIANA Administration Famotidine 20 mg 11/15/19 09:00 11/22/19 08:56 Pepcid PO 20 mg DAILY ORIANA Administration Heparin Sodium (Porcine) 5,000 units 11/14/19 15:00 11/22/19 08:57 Heparin SC 5,000 units TID ORIANA Administration Sodium Chloride 1,000 mls @ 0 mls/hr 11/15/19 08:30 11/17/19 06:48 1/2 Normal Saline IV 1,000 mls .Q0M ORIANA Administration TKO Insulin Glargine 8 units/ 0.08 mls @ 0 mls/hr 11/20/19 09:00 11/22/19 08:57 Miscellaneous Medication SC 0.08 mls QAM ORIANA Administration Insulin Human Regular 0 units 11/15/19 11:58 11/21/19 18:07 Humulin R SC 4 unit .MODERATE SLIDING SC PRN Administration MODERATE SLIDING SCALE Protocol Levofloxacin 250 mg 11/16/19 06:00 11/22/19 05:36 Levaquin PO 11/23/19 06:01 250 mg 0600 ORIANA Administration Nifedipine 90 mg 11/20/19 09:00 11/22/19 09:32 Procardia Xl PO 90 mg DAILY ORIANA Administration Sodium Chloride 10 ml 11/14/19 11:00 11/20/19 08:54 Flush - Normal Saline IVF 10 ml PRN PRN Administration Saline Flush Tramadol HCl 50 mg 11/18/19 09:46 11/21/19 02:36 Ultram PO 50 mg Q6H PRN Administration Moderate Pain (4-6) - Exam General Appearance: NAD, awake alert ENT: normocephalic atraumatic, moist mucosa Neck: supple, symmetric, no JVD, no lymphadenopathy Heart: RRR, no murmur, no gallops, no rubs, normal peripheral pulses Respiratory: CTAB, no wheezes, no ronchi Gastrointestinal: soft, non-tender, non-distended, normal bowel sounds Extremities: no cyanosis, no clubbing, no edema Neurological: no focal deficits Psychiatric: normal affect, normal behavior Hosp A/P (1) Acute on chronic kidney failure Code(s): N17.9 - ACUTE KIDNEY FAILURE, UNSPECIFIED; N18.9 - CHRONIC KIDNEY DISEASE, UNSPECIFIED Status: Acute Qualifiers: Chronic kidney disease stage: on chronic dialysis (2) Acute respiratory failure with hypoxia Code(s): J96.01 - ACUTE RESPIRATORY FAILURE WITH HYPOXIA Status: Acute (3) Anemia in chronic kidney disease Code(s): N18.9 - CHRONIC KIDNEY DISEASE, UNSPECIFIED; D63.1 - ANEMIA IN CHRONIC KIDNEY DISEASE Status: Acute (4) Community acquired pneumonia Code(s): J18.9 - PNEUMONIA, UNSPECIFIED ORGANISM Status: Acute (5) Diabetes mellitus Code(s): E11.9 - TYPE 2 DIABETES MELLITUS WITHOUT COMPLICATIONS Status: Chronic (6) Hypertension Code(s): I10 - ESSENTIAL (PRIMARY) HYPERTENSION Status: Chronic - Plan Acute respiratory failure: currently on Levaquin DM: blood sugars are stable, insulin education given, will need additional teaching upon discharge HTN: BP stable Awaiting outpatient dialysis placement
[2019-11-22] MEDS: Insulin Regular 300 UNITS/3 ML VIAL SC PRN (15:57)
--- NOTE | 2019-11-22 17:15 | PDOC.GSPN ---
Surgery Progress Note: Subj - Subjective Narrative: Patient is without complaints. She is awaiting outpatient dialysis placement. Her incision is healing well and she has a good thrill in her fistula. She was instructed on how to check for her thrill daily and she was encouraged to do her hand exercises frequently to stimulate flow through the fistula. I would like to see her in my clinic 2 or 3 weeks after discharge. Surgery Progress Note: Obj - Vital signs Vital signs: Vital Signs - Most Recent Temp Pulse Resp BP Pulse Ox 98.9 F 87 18 118/70 98 11/22/19 08:00 11/22/19 08:00 11/22/19 08:00 11/22/19 08:00 11/22/19 08:00 Surgery Progress Note: Results - Labs Result Diagrams: 11/22/19 05:31 11/22/19 05:31 Lab results: Laboratory Results - last 24 hr 11/22/19 11/22/19 11/22/19 05:31 05:31 05:40 WBC 14.1 H RBC 3.27 L Hgb 8.0 L Hct 27.5 L MCV 83.9 MCH 24.5 L MCHC 29.2 L RDW 18.8 H Plt Count 175 MPV 11.3 H Neutrophils % (Manual) 64 Band Neuts % (Manual) 4 L Lymphocytes % (Manual) 18 L Monocytes % (Manual) 9 Eosinophils % (Manual) 2 Metamyelocytes % (Man) 2 H Myelocytes % 1 H Lymphocytes # Not Reportable Hypochromia SLIGHT = 6-15 cells Large Platelets SLIGHT Plt Morphology Comment Appears Adequate Sodium 134 L Potassium 3.8 Chloride 95 L Carbon Dioxide 26 Anion Gap 17 BUN 28 H Creatinine 4.65 H Estimated GFR (MDRD) 11 Glucose 111 POC Glucose 115 H Calcium 8.6 11/22/19 11:30 WBC RBC Hgb Hct MCV MCH MCHC RDW Plt Count MPV Neutrophils % (Manual) Band Neuts % (Manual) Lymphocytes % (Manual) Monocytes % (Manual) Eosinophils % (Manual) Metamyelocytes % (Man) Myelocytes % Lymphocytes # Hypochromia Large Platelets Plt Morphology Comment Sodium Potassium Chloride Carbon Dioxide Anion Gap BUN Creatinine Estimated GFR (MDRD) Glucose POC Glucose 285 H Calcium
--- NOTE | 2019-11-22 17:18 | PDOC.EVN ---
Event Note - Event Note Event Note: Patient seen and examined and discussed with Annalisa MAHMOOD. Ms. Chacon does not have any complaints today. Her exam is unchanged. Lab work was reviewed. HTN and DM has been stable. She is tolerating dialysis. She is waiting outpatient dialysis arrangement.
[2019-11-23 05:58] LABS: Anion Gap 19 mmol/L (10-20); BUN (Urea Nitrogen) 47 mg/dL (9.8-20.1); Calc. Creatinine Clearance 12 mL/min (70-130); Calcium 8.4 mg/dL (7.8-10.44); Carbon Dioxide 23 mmol/L (23-31); Chloride 93 mmol/L (98-107); Estimated GFR-MDRD 8; Glucose 153 mg/dL (80-115); Potassium 3.8 mmol/L (3.5-5.1); Sodium 131 mmol/L (136-145)
--- NOTE | 2019-11-23 08:33 | PRG ---
DATE OF SERVICE: 11/23/2019 SERVICE: Renal Medicine. SUBJECTIVE: Ms. Chacon is a 69-year-old black female, who was initially admitted for DKA/pneumonia. Hemodialysis has been initiated due to volume overload and progressive azotemia. She is undergoing hemodialysis today. No new complaints. No chest pain or shortness of breath. OBJECTIVE: VITAL SIGNS: Blood pressure 153/74, heart rate 82, respiratory rate 17, temperature 97.8, O2 saturation 99%. GENERAL: Noted to be awake, alert, comfortable, not in overt distress. SKIN: Adequate turgor. HEENT: She has a slightly pale conjunctivae. Anicteric sclerae. NECK: No neck mass. No carotid bruits. No JVD. CHEST: No deformities. LUNGS: Clear breath sounds. HEART: Normal sinus rhythm. No murmur. No gallops. No rubs. ABDOMEN: Globular, soft, nontender. No masses. EXTREMITIES: No edema. No deformities. MEDICATIONS: On November 23, 2019, were reviewed. LABORATORY DATA: On November 22, 2019; white count 14.1, hemoglobin 8. On November 23, 2019; sodium 131, potassium 3.8, chloride 93, carbon dioxide 23, BUN 47, creatinine 6.24, glucose 153, calcium 8.4. ASSESSMENT AND PLAN: 1. Chronic renal failure/end-stage renal disease. Continue current hemodialysis regimen of 3 times a week. Fluid removal as tolerated. We are awaiting outpatient dialysis placement with this patient. 2. Pneumonia-on antibiotics, doing well. 3. Diabetic ketoacidosis, resolved. 4. Anemia. Recheck CBC in a.m. Job ID: [id number]
--- NOTE | 2019-11-23 09:20 | PRG ---
DATE OF SERVICE: SUBJECTIVE: This morning, she is being dialyzed. OBJECTIVE: VITAL SIGNS: Temperature 97, pulse blood pressure 150/74. CHEST: No wheezing or crackles. CARDIAC: Normal S1 and S2. No gallops. ABDOMEN: No masses. LABORATORY DATA: Creatinine is 6.24. ASSESSMENT AND PLAN: Diabetes, renal failure, possibly pneumonia, fluid overload. Continue dialysis. Pneumonia, resolved. Afebrile. Home any time as per Nephrology. Job ID: [id number]
--- NOTE | 2019-11-23 11:13 | PDOC.HOSPP ---
- Subjective Encounter Date: 11/23/19 Encounter Time: 09:15 Subjective: Ms Chacon is seen today as a follow up on ESRD, HTN, and pneumonia. She was seen and examined during her dialysis treatment this morning. No overnight events and no complaints. She states she is feeling good other than being tired from the treatment. - Objective Vital Signs & Weight: Vital Signs (12 hours) Temp Pulse Resp BP Pulse Ox 11/23/19 07:40 97.8 F 82 17 153/74 H 99 Weight Admit Weight 190 lb 4.143 oz Weight 193 lb 1.999 oz Most Recent Monitor Data Heart Rate from ECG 85 NIBP 160/70 NIBP BP-Mean 100 Respiration from ECG 22 SpO2 95 I&O: 11/22/19 11/23/19 11/24/19 06:59 06:59 06:59 Intake Total 600 940 Balance 600 940 Result Diagrams: 11/22/19 05:31 11/23/19 05:28 Additional Labs: Accuchecks 11/23/19 11/22/19 11/22/19 04:42 20:06 16:00 POC Glucose 172 H 175 H 276 H 11/22/19 11:30 POC Glucose 285 H Hospitalist ROS - Medication Medications: Active Medications Generic Name Dose Route Start Last Admin Trade Name Freq PRN Reason Stop Dose Admin Acetaminophen 650 mg 11/20/19 19:56 11/20/19 20:01 Tylenol PO 650 mg Q4H PRN Administration Headache/Fever or Pain Carvedilol 25 mg 11/18/19 21:00 11/22/19 20:40 Coreg PO 25 mg BID ORIANA Administration Famotidine 20 mg 11/15/19 09:00 11/22/19 08:56 Pepcid PO 20 mg DAILY ORIANA Administration Heparin Sodium (Porcine) 5,000 units 11/14/19 15:00 11/22/19 20:40 Heparin SC 5,000 units TID ORIANA Administration Sodium Chloride 1,000 mls @ 0 mls/hr 11/15/19 08:30 11/17/19 06:48 1/2 Normal Saline IV 1,000 mls .Q0M ORIANA Administration TKO Insulin Glargine 8 units/ 0.08 mls @ 0 mls/hr 11/20/19 09:00 11/22/19 08:57 Miscellaneous Medication SC 0.08 mls QAM ORIANA Administration Insulin Human Regular 0 units 11/15/19 11:58 11/22/19 15:57 Humulin R SC 6 unit .MODERATE SLIDING SC PRN Administration MODERATE SLIDING SCALE Protocol Nifedipine 90 mg 11/20/19 09:00 11/22/19 09:32 Procardia Xl PO 90 mg DAILY ORIANA Administration Sodium Chloride 10 ml 11/14/19 11:00 11/20/19 08:54 Flush - Normal Saline IVF 10 ml PRN PRN Administration Saline Flush Tramadol HCl 50 mg 11/18/19 09:46 11/21/19 02:36 Ultram PO 50 mg Q6H PRN Administration Moderate Pain (4-6) - Exam General Appearance: NAD, awake alert Neck: supple, symmetric, no JVD, no lymphadenopathy Heart: RRR, no murmur, no gallops, no rubs Respiratory: CTAB, no wheezes, no rales, no ronchi Gastrointestinal: soft, non-tender, non-distended, normal bowel sounds Psychiatric: normal affect, normal behavior Hosp A/P (1) Acute on chronic kidney failure Code(s): N17.9 - ACUTE KIDNEY FAILURE, UNSPECIFIED; N18.9 - CHRONIC KIDNEY DISEASE, UNSPECIFIED Status: Acute Qualifiers: Chronic kidney disease stage: on chronic dialysis (2) Acute respiratory failure with hypoxia Code(s): J96.01 - ACUTE RESPIRATORY FAILURE WITH HYPOXIA Status: Acute (3) Anemia in chronic kidney disease Code(s): N18.9 - CHRONIC KIDNEY DISEASE, UNSPECIFIED; D63.1 - ANEMIA IN CHRONIC KIDNEY DISEASE Status: Acute (4) Community acquired pneumonia Code(s): J18.9 - PNEUMONIA, UNSPECIFIED ORGANISM Status: Acute (5) Diabetes mellitus Code(s): E11.9 - TYPE 2 DIABETES MELLITUS WITHOUT COMPLICATIONS Status: Chronic (6) Hypertension Code(s): I10 - ESSENTIAL (PRIMARY) HYPERTENSION Status: Chronic - Plan Acute respiratory failure: Patient has completed levaquin for pneumonia, pulmonary has cleared patient to go home DM: blood sugars are stable, insulin education given, will need additional teaching upon discharge HTN: BP stable Awaiting outpatient dialysis placement
[2019-11-23] MEDS: Heparin 5,000 UNITS/ML VIAL SC SCH ×2 (12:23→14:34)
[2019-11-23] MEDS: Famotidine 20 MG TAB PO SCH (12:26)
[2019-11-23] MEDS: NIFEdipine XL 90 MG TAB PO SCH (12:26)
[2019-11-23] MEDS: Carvedilol 25 MG TAB PO SCH (12:27)
[2019-11-23 12:41] VITALS: BP 153/70; TEMP 98.5
[2019-11-23] MEDS: Insulin Glargine 8 UNITS in Pre-Filled Syringe 1 EACH SC SCH (12:58)
--- NOTE | 2019-11-23 16:14 | PDOC.EVN ---
Event Note - Event Note Event Note: Patient seen and examined and discussed with Annalisa Saenz. She does not have any complaints today. Dialysis arrangements have been made. Stable for discharge home.
--- NOTE | 2019-11-23 16:39 | EKG ---
Test Reason : Blood Pressure : / mmHG Vent. Rate : 078 BPM Atrial Rate : 078 BPM P-R Int : 120 ms QRS Dur : 080 ms QT Int : 384 ms P-R-T Axes : -14 022 024 degrees QTc Int : 437 ms Normal sinus rhythm Normal ECG Confirmed by AKHIL VENEGAS DO ([id number]), managing editor HILARIA FERMIN ([id number] on 11/23/2019 4:39:46 PM Referred By: Confirmed By:AKHIL VENEGAS DO
[2019-11-23] MEDS: Insulin Regular 300 UNITS/3 ML VIAL SC PRN (19:30)
--- NOTE | 2019-11-23 20:38 | DIS ---
DATE OF ADMISSION: 11/14/2019 DATE OF DISCHARGE: 11/23/2019 DISCHARGE DISPOSITION: Home. DISCHARGE DIAGNOSES: 1. Diabetic ketoacidosis, resolved. 2. End-stage renal disease, on hemodialysis. 3. Hypertension. 4. Diabetes mellitus, type 2. 5. Obstructive sleep apnea. 6. Anemia of chronic disease due to renal disease, on Procrit. DISCHARGE MEDICATIONS: Include: 1. Novolin R sliding scale. 2. Lantus insulin 8 units daily. 3. CoQ10 of 100 mg daily. 4. Crestor 40 mg at bedtime. 5. MiraLAX 17 g daily. 6. Nifedipine extended release 90 mg daily. 7. Carvedilol 25 mg p.o. twice a day. 8. Aspirin 81 mg daily. IMAGING DONE DURING HOSPITAL COURSE: The patient had arterial markings done for the fistulogram. The patient had a right femoral hemodialysis catheter placed, as well as an AV fistula placement. The patient had an echocardiogram in which the ejection fraction was estimated at 55% to 60%. There was some mild mitral regurgitation. CODE STATUS: Full code. ALLERGIES: TO CODEINE, MEPERIDINE, METFORMIN, AND OXAPROZIN. HOSPITAL COURSE: Ms. Chacon is a pleasant 69-year-old female, who presented to the emergency room with elevated blood sugar. She was also not feeling very well and complained of poor appetite and polyuria. She was evaluated in the emergency room and found to be in diabetic ketoacidosis. She was admitted and started on an insulin drip. It was also noted that her creatinine was much higher than her baseline. Her liner installer was consulted and it was discovered that she had newly detected end-stage renal disease. It was felt that this was a progression of the diabetes or diabetic nephropathy. She was initiated on dialysis. Prior to this, the general surgeon was consulted in which she had a dialysis catheter placed as well as an AV fistula. Now that she is a dialysis patient, it was felt best to change her diabetic regimen from the oral hypoglycemics to insulin. She was counseled extensively on insulin use and how to use the needles. I did this myself as well as a nurse practitioner and her RN also discussed this with her as well. She voiced understanding. Once her hemodialysis was arranged, she was able to be discharged home to have close followup with her primary care physician and also with her Geophysical Support Specialist, Dr. Sands, as instructed. Job ID: [id number]
== END 2019-11-23 19:50 | disposition home or self-care (01) | DRG 853 ==
LOC: ERS 09:07 → CCU 10:59 → T4-B 11-19 18:26
PROVIDERS: ADMIT Internal Medicine; ATTEND Internal Medicine
PROC: 8E0ZXY6 Isolation (ICD-10-PCS; 2019-11-14)
PROC: 0BH17EZ Insertion of Endotracheal Airway into Trachea, Via Natural or Artificial Opening (ICD-10-PCS; 2019-11-15)
PROC: 5A1945Z Respiratory Ventilation, 24-96 Consecutive Hours (ICD-10-PCS; 2019-11-15)
PROC: 06HY33Z Insertion of Infusion Device into Lower Vein, Percutaneous Approach (ICD-10-PCS; 2019-11-15)
PROC: B54CZZA Ultrasonography of Left Lower Extremity Veins, Guidance (ICD-10-PCS; 2019-11-15)
PROC: 5A1D70Z Performance of Urinary Filtration, Intermittent, Less than 6 Hours Per Day (ICD-10-PCS; 2019-11-15)
PROC: 031B3ZF Bypass Right Radial Artery to Lower Arm Vein, Percutaneous Approach (ICD-10-PCS; principal; 2019-11-17)
PROC: 0JH63XZ Insertion of Tunneled Vascular Access Device into Chest Subcutaneous Tissue and Fascia, Percutaneous Approach (ICD-10-PCS; 2019-11-17)
PROC: 02HV33Z Insertion of Infusion Device into Superior Vena Cava, Percutaneous Approach (ICD-10-PCS; 2019-11-17)
PROC: B518ZZA Fluoroscopy of Superior Vena Cava, Guidance (ICD-10-PCS; 2019-11-17)
DX: A41.9 Sepsis, unspecified organism (principal); E11.10 Type 2 diabetes mellitus with ketoacidosis without coma; N18.6 End stage renal disease; J96.01 Acute respiratory failure with hypoxia; J18.9 Pneumonia, unspecified organism; N17.9 Acute kidney failure, unspecified; I12.0 Hypertensive chronic kidney disease with stage 5 chronic kidney disease or end stage renal disease; E87.2 Acidosis; E87.1 Hypo-osmolality and hyponatremia; R65.20 Severe sepsis without septic shock; Z20.828 Contact with and (suspected) exposure to other viral communicable diseases; D50.9 Iron deficiency anemia, unspecified; E78.5 Hyperlipidemia, unspecified; D63.1 Anemia in chronic kidney disease; E11.22 Type 2 diabetes mellitus with diabetic chronic kidney disease; M19.90 Unspecified osteoarthritis, unspecified site; G47.33 Obstructive sleep apnea (adult) (pediatric); E87.70 Fluid overload, unspecified; Z90.49 Acquired absence of other specified parts of digestive tract; Z90.710 Acquired absence of both cervix and uterus; Z88.5 Allergy status to narcotic agent; Z88.8 Allergy status to other drugs, medicaments and biological substances; Z79.899 Other long term (current) drug therapy; Z79.84 Long term (current) use of oral hypoglycemic drugs
CPT/HCPCS: 36415; 36416; 71045; 80048; 80053; 81001; 82010; 82553; 82728; 82805; 83540; 83550; 83605; 84443; 84484; 85025; 86580; 86704; 86706; 86803; 87040; 87070; 87205; 87340; 87635; 90935; 93005; 93306; 93970; 94002; 94003; 94660; 96361; 96365; 96366; 96368; 96375; C1752; C1769; G0257; G0365; J0456; J0690; J0692; J0696; J1642; J1644; J1815; J1940; J1956; J2060; J2704; J2720; J3010; J3490; J7050; S0020; S0028; U0003

== ENCOUNTER 2019-12-01 15:25 | Emergency (ER) | payer MEDICARE ==
[2019-12-01 16:13] LABS: #Basophils 0.1 thou/uL (0.0-0.2); #Eosinphils 0.2 thou/uL (0.0-0.7); #Lymphocytes 1.4 thou/uL (1.20-3.40); #Monocytes 0.7 thou/uL (0.11-0.59); #Neutrophils 4.4 thou/uL (1.40-6.50); %Basophils 1.4 % (0.0-1.0); %Eosinophils 2.2 % (0.0-10.0); %Lymphocytes 20.4 % (21.0-51.0); %Monocytes 10.1 % (0.0-10.0); %Neutrophils 65.9 % (42.0-75.0); Hemoglobin 7.2 g/dL (12.0-16.0); Mean Corpuscular HGB CONC 30.3 g/dL (32.0-36.0); Mean Corpuscular Hemoglobin 25.8 pg (27.0-31.0); Mean Corpuscular Volume 85.1 fL (78.0-98.0); Mean Platelet Volume 10.7 fL (7.4-10.4); Platelet Count 213 thou/uL (130-400); RBC Distribution Width 19.2 % (11.5-14.5); White Blood Cell (WBC) Count 6.7 thou/uL (4.8-10.8)
[2019-12-01 16:34] LABS: ALT (SGPT) 17 U/L (8-55); AST (SGOT) 29 U/L (5-34); Albumin 3.6 g/dL (3.4-4.8); Alkaline Phosphatase 211 U/L (40-110); Anion Gap 19 mmol/L (10-20); BUN (Urea Nitrogen) 27 mg/dL (9.8-20.1); Bilirubin, Total 0.5 mg/dL (0.2-1.2); Calc. Creatinine Clearance 0 mL/min (70-130); Carbon Dioxide 28 mmol/L (23-31); Chloride 93 mmol/L (98-107); Estimated GFR-MDRD 11; Globulin 4.5 g/dL (2.4-3.5); Glucose 112 mg/dL (80-115); Potassium 3.8 mmol/L (3.5-5.1); Protein, Total 8.1 g/dL (6.0-8.3); Sodium 136 mmol/L (136-145)
[2019-12-01 16:48] LABS: Iron 50 ug/dL (50-170); Iron Binding Capacity, Total 290 mcg/dL (265-497)
== END 2019-12-01 19:55 | disposition home or self-care (01) ==
LOC: ERS 15:25
DX: D64.9 Anemia, unspecified (principal); E11.22 Type 2 diabetes mellitus with diabetic chronic kidney disease; E78.5 Hyperlipidemia, unspecified; I12.9 Hypertensive chronic kidney disease with stage 1 through stage 4 chronic kidney disease, or unspecified chronic kidney disease; N18.3 Chronic kidney disease, stage 3 (moderate)
CPT/HCPCS: 36430; 80053; 82728; 83540; 83550; 85025; 86850; 86900; 86901; 86920; 99284; P9016

== ENCOUNTER 2020-01-07 08:34 | Inpatient (IN) | payer MEDICARE ==
[2020-01-07 09:33] LABS: INR-International Normal Ratio 1.2; Prothrombin Time 15.3 sec (12.0-14.7)
[2020-01-07 09:34] LABS: PTT 36.9 sec (22.9-36.1)
[2020-01-07 09:43] LABS: ALT (SGPT) 13 U/L (8-55); AST (SGOT) 18 U/L (5-34); Albumin 3.3 g/dL (3.4-4.8); Alkaline Phosphatase 101 U/L (40-110); Anion Gap 16 mmol/L (10-20); BUN (Urea Nitrogen) 28 mg/dL (9.8-20.1); Bilirubin, Total 0.3 mg/dL (0.2-1.2); CK (CPK) 96 U/L (29-168); Calc. Creatinine Clearance 0 mL/min (70-130); Calcium 8.7 mg/dL (7.8-10.44); Carbon Dioxide 26 mmol/L (23-31); Chloride 92 mmol/L (98-107); Estimated GFR-MDRD 16; Globulin 3.7 g/dL (2.4-3.5); Glucose 231 mg/dL (80-115); Lipase 4 U/L (8-78); Sodium 131 mmol/L (136-145)
[2020-01-07 09:44] LABS: Hemoglobin 7.9 g/dL (12.0-16.0); Mean Corpuscular HGB CONC 30.1 g/dL (32.0-36.0); Mean Corpuscular Hemoglobin 25.6 pg (27.0-31.0); Mean Corpuscular Volume 85.2 fL (78.0-98.0); Mean Platelet Volume 11.4 fL (7.4-10.4); Platelet Count 133 thou/uL (130-400); RBC Distribution Width 18.2 % (11.5-14.5); Red Blood Cell (RBC) Count 3.07 mill/uL (4.20-5.40)
[2020-01-07 09:51] LABS: Potassium 2.9 mmol/L (3.5-5.1)
[2020-01-07 10:06] LABS: Band 4 % (5-11); Hypochromia SLIGHT = 6-15 cells (100X) (0-5/hpf); Lymphocytes 4 % (21-51); MDiff Complete? YES; Monocytes 5 % (0-10); Neutrophil 87 % (42-75); Platelet Morphology Comment Appears Adequate; White Blood Cell (WBC) Count 24.9 thou/uL (4.8-10.8)
[2020-01-07] MEDS ORDERED: Cefepime 2 GM VIAL ONE (10:36)
--- NOTE | 2020-01-07 10:37 | RAD ---
FRONTAL RADIOGRAPH CHEST: 01/07/2020 HISTORY: Blood in stool. COMPARISON: 11/18/2019 FINDINGS: There is a right-sided dialysis catheter with the distal tip overlying the region of the SVC. There i s atherosclerotic calcification of the aortic arch. No focal consolidation or alveolar edema. IMPRESSION: No focal consolidation or alveolar edema. POS: SHAVON
[2020-01-07 11:14] LABS: Bilirubin Negative (Negative); Blood, Urine 1+ (Negative); Clarity Turbid (Clear); Glucose, Urine (Dipstick) Normal (Negative); Ketone, Urine Negative (Negative); Leukocyte 75 Leu/uL (Negative); Nitrite Negative (Negative); Protein, Urine (Dipstick) 100 mg/dL (Neg-Trace); RBC/HPF 0-3 HPF (0-3); Urobilinogen Normal mg/dL (Less than 2); pH, Urine 6.5 (5.0-9.0)
[2020-01-07 11:24] LABS: Bacteria/HPF Rare-Few HPF (None Seen)
--- NOTE | 2020-01-07 11:32 | CT ---
CT ABDOMEN AND PELVIS WITH IV CONTRAST: INDICATIONS: Bloody diarrhea. COMPARISON: None. FINDINGS: The lung bases are clear. The liver, spleen and pancreas unremarkable. The stomach and duodenum are unremarkable. The adrenal glands appear normal. There is a 2.0 cm cystic lesion of the superior right kidney. The kidneys are otherwise unremarkable. No hydronephrosis. Small bowel loops are of normal caliber. There is abnormal mural thickening involving the entire colon. Findings indicating diffuse colitis. R ecommend GI consultation. The aorta shows atherosclerotic calcification without aneurysm. Nonspecific para-aortic lymph nodes a re seen, which are predominantly subcentimeter. No free fluid. The osseous structures are unremarkabl e. IMPRESSION: 1. Diffuse mucosal thickening involving the entire colon, consistent with diffuse colitis. Suggest ga stroenterology consultation and consider colonoscopy. 2. Small right renal cyst. 3. Otherwise no acute process. POS: AGW
[2020-01-07] MEDS ORDERED: Vancomycin 1 GM/200 ML BAG ONE (12:23)
[2020-01-07] MEDS ORDERED: Ondansetron PF 4 MG/2 ML Vial IVP PRN (12:52)
[2020-01-07] MEDS ORDERED: Ondansetron ODT 4 MG TAB PO PRN (12:52)
[2020-01-07] MEDS ORDERED: Sodium Chloride 0.9% 1,000 ML IV SCH (13:00)
[2020-01-07 13:33] VITALS: BMI 31.8
[2020-01-07] MEDS ORDERED: Dextrose 50% Abboject 50 ML SYRINGE SLOW IVP PRN (13:57)
[2020-01-07] MEDS ORDERED: Dextrose 5% in Water 1,000 ML IV PRN (13:57)
--- NOTE | 2020-01-07 14:05 | PDOC.HHP ---
Hospitalist HPI - History of Present Illness Abdominal pain History of Present Illness: This patient is a 69-year-old female who presented to this facility about 6 weeks ago. At that time the patient had advanced to end-stage renal disease requiring the initiation of dialysis. She was also in diabetic ketoacidosis and had pneumonia. She was on antibiotics throughout that hospitalization. The patient reported that she has had loose stools since her discharge from the hospital. She started developing some abdominal discomfort about a week ago. That has progressed. She states it is primarily a cramping sensation and then she will have diarrhea. Subsequently the pain improves. She was unaware of any particular fever but had a low-grade fever in the emergency department. She reports 5-10 bowel movements per day. No nausea and vomiting. She has been eating however she lost her appetite a couple of days ago. ED Course: Patient had a significantly elevated white blood cell count emergency department with slight fever given the underlying infection she was diagnosed with sepsis and started on Vanco cefepime and Levaquin. She also received 1 L of normal saline. Her blood pressure was as low as 96/39 Hospitalist ROS - Review of Systems Constitutional: reports: malaise. denies: fever, chills Respiratory: denies: cough, shortness of breath Cardiovascular: denies: chest pain, palpitations Gastrointestinal: reports: abdominal pain, diarrhea. denies: nausea, vomiting, melena, hematochezia Genitourinary: denies: dysuria All other systems reviewed; all pertinent +/- noted in HPI/Subj - Medication Medications: Aspirin 81 mg p.o. daily Nifedipine 90 mg p.o. daily Coreg 25 mg p.o. twice daily Rosuvastatin 40 mg 1 p.o. daily Lantus 8 units subcu daily 70-30 sliding scale 3 times daily Hospitalist History - Past Medical History Cardiac: reports: HTN, Hyperlipidemia Pulmonary: reports: Other (Obstructive sleep apnea) Heme/Onc: reports: Other (Anemia of chronic kidney disease) Renal/: reports: Chronic renal failure Endocrine: reports: Diabetes - Past Surgical History Past Surgical History: reports: Breast Biopsy - Family History Family History: reports: diabetes mellitus - Social History Smoking Status: Never smoker Alcohol: reports: None Drugs: reports: none Other Social History: Patient is . She is a full code. Her would be a surrogate decision maker. Michael Mendoza [phone] - Exam General Appearance: NAD, awake alert Neck: supple, symmetric, no JVD, no thyromegaly, no lymphadenopathy, no carotid bruit Heart: RRR, no murmur, no gallops, no rubs, normal peripheral pulses Respiratory: CTAB, no wheezes, no rales, no ronchi, normal chest expansion, no tachypnea, normal percussion Gastrointestinal: soft, non-distended, normal bowel sounds, no palpable masses, no hepatomegaly, no splenomegaly, no guarding, tender to palpation (Primarily in the epigastrium.) Extremities: no cyanosis, no clubbing, no edema Skin: normal turgor Musculoskeletal: normal tone Psychiatric: normal affect, normal behavior, A&O x 3 Hospitalist Results - Labs Result Diagrams: 01/07/20 09:11 01/07/20 09:11 Lab results: WBC 24.9 thou/uL (4.8-10.8) H 01/07/20 09:11 Hgb 7.9 g/dL (12.0-16.0) L 01/07/20 09:11 Hct 26.1 % (36.0-47.0) L 01/07/20 09:11 MCV 85.2 fL (78.0-98.0) 01/07/20 09:11 Plt Count 133 thou/uL (130-400) 01/07/20 09:11 Band Neuts % (Manual) 4 % (5-11) L 01/07/20 09:11 Sodium 131 mmol/L (136-145) L 01/07/20 09:11 Potassium 2.9 mmol/L (3.5-5.1) L* 01/07/20 09:11 Chloride 92 mmol/L (98-107) L 01/07/20 09:11 Carbon Dioxide 26 mmol/L (23-31) 01/07/20 09:11 BUN 28 mg/dL (9.8-20.1) H 01/07/20 09:11 Creatinine 3.54 mg/dL (0.6-1.1) H 01/07/20 09:11 Glucose 231 mg/dL (80-115) H 01/07/20 09:11 Lactic Acid 1.2 mmol/L (0.5-2.2) 01/07/20 09:40 Calcium 8.7 mg/dL (7.8-10.44) 01/07/20 09:11 Total Bilirubin 0.3 mg/dL (0.2-1.2) 01/07/20 09:11 AST 18 U/L (5-34) 01/07/20 09:11 ALT 13 U/L (8-55) 01/07/20 09:11 Alkaline Phosphatase 101 U/L (40-110) 01/07/20 09:11 Creatine Kinase 96 U/L (29-168) 01/07/20 09:11 Troponin I 0.025 ng/mL (< 0.028) 01/07/20 09:11 B-Natriuretic Peptide 151.1 pg/mL (0-100) H 01/07/20 09:11 Serum Total Protein 7.0 g/dL (6.0-8.3) 01/07/20 09:11 Albumin 3.3 g/dL (3.4-4.8) L 01/07/20 09:11 Lipase 4 U/L (8-78) L 01/07/20 09:11 Urine Ketones Negative mg/dL (Negative) 01/07/20 10:45 Urine Blood 1+ (Negative) A 01/07/20 10:45 Urine Nitrite Negative (Negative) 01/07/20 10:45 Ur Leukocyte Esterase 75 Lily/uL (Negative) A 01/07/20 10:45 Urine RBC 0-3 HPF (0-3) 01/07/20 10:45 Urine WBC 7-10 HPF (0-3) A 01/07/20 10:45 Ur Squamous Epith Cells 4-6 HPF (0-3) A 01/07/20 10:45 Urine Bacteria Rare-Few HPF (None Seen) 01/07/20 10:45 - Radiology Interpretation CT scan - abdomen Status: image reviewed by me, report reviewed by me Additional Comment: IMPRESSION: 1. Diffuse mucosal thickening involving the entire colon, consistent with diffuse colitis. Suggest gastroenterology consultation and consider colonoscopy. 2. Small right renal cyst. 3. Otherwise no acute process. Chest x-ray Status: report reviewed by me Additional Comment: Normal Hospitalist H&P A/P - Problem (1) Sepsis Code(s): A41.9 - SEPSIS, UNSPECIFIED ORGANISM Status: Acute (2) Colitis Code(s): K52.9 - NONINFECTIVE GASTROENTERITIS AND COLITIS, UNSPECIFIED Status : Acute (3) End stage renal disease on dialysis Code(s): N18.6 - END STAGE RENAL DISEASE; Z99.2 - DEPENDENCE ON RENAL DIALYSIS Status: Acute (4) Diabetes mellitus Code(s): E11.9 - TYPE 2 DIABETES MELLITUS WITHOUT COMPLICATIONS Status: Chronic (5) Hypertension Code(s): I10 - ESSENTIAL (PRIMARY) HYPERTENSION Status: Chronic (6) HLD (hyperlipidemia) Code(s): E78.5 - HYPERLIPIDEMIA, UNSPECIFIED Status: Acute - Plan Plan: Sepsis: Appears to be from infectious colitis. She is received broad-spectrum antibiotics. She is received a certain degree of fluid resuscitation. That is modulated in light of her end-stage renal disease and dialysis. Colitis: Appears to be infectious in nature causing some degree of sepsis. Concerning for C. difficile colitis. Sending a stool study. Will cover with p.o. vancomycin and IV Zosyn until the results are known. End-stage renal disease on dialysis: Nephrology has been consulted. She will likely stay on her usual regimen. Diabetes mellitus type 2: We will cover with sliding scale insulin for now. Continue Accu-Cheks. Hypertension: Resume home medications. Hyperlipidemia: Continue rosuvastatin.
[2020-01-07] MEDS ORDERED: Iopamidol-370 76% 500 ML 1 ML ONE (14:16)
[2020-01-07] MEDS: Heparin 5,000 UNITS/ML VIAL SC SCH ×2 (14:49→21:50)
[2020-01-07] MEDS: Piperacillin/Tazobactam 2.25 GM in Sodium Chloride 0.9% 100 ML IVPB SCH ×2 (14:51→21:50)
[2020-01-07] MEDS: Vancomycin HCl 25 MG/ML Oral PO SCH ×2 (15:22→21:50)
[2020-01-07] MEDS: HumaLOG 300 UNITS/3 ML VIAL SC PRN (17:26)
[2020-01-07] MEDS ORDERED: Potassium Chloride 20 MEQ TAB PO SCH (18:00)
[2020-01-07] MEDS ORDERED: Famotidine 20 MG TAB PO SCH (21:00)
[2020-01-07] MEDS: Rosuvastatin 20 MG TAB PO SCH (21:50)
[2020-01-08] MEDS: Vancomycin HCl 25 MG/ML Oral PO SCH ×4 (01:23→22:49)
[2020-01-08] MEDS: Acetaminophen 325 MG TAB PO PRN ×2 (01:23→10:09)
[2020-01-08 04:50] LABS: Anion Gap 14 mmol/L (10-20); BUN (Urea Nitrogen) 32 mg/dL (9.8-20.1); Calc. Creatinine Clearance 18 mL/min (70-130); Calcium 8.2 mg/dL (7.8-10.44); Carbon Dioxide 22 mmol/L (23-31); Chloride 96 mmol/L (98-107); Estimated GFR-MDRD 14; Glucose 158 mg/dL (80-115); Sodium 129 mmol/L (136-145)
[2020-01-08 05:02] LABS: Potassium 2.6 mmol/L (3.5-5.1)
[2020-01-08 05:11] LABS: Band 8 % (5-11); Hemoglobin 7.3 g/dL (12.0-16.0); Hypochromia SLIGHT = 6-15 cells (100X) (0-5/hpf); Lymphocytes 3 % (21-51); MDiff Complete? YES; Mean Corpuscular HGB CONC 30.8 g/dL (32.0-36.0); Mean Corpuscular Volume 84.2 fL (78.0-98.0); Mean Platelet Volume 11.8 fL (7.4-10.4); Metamyelocyte 1 % (0-0); Monocytes 4 % (0-10); Neutrophil 84 % (42-75); Platelet Count 138 thou/uL (130-400); Platelet Morphology Comment Appears Adequate; RBC Distribution Width 18.3 % (11.5-14.5); Red Blood Cell (RBC) Count 2.83 mill/uL (4.20-5.40); White Blood Cell (WBC) Count 26.1 thou/uL (4.8-10.8)
[2020-01-08] MEDS: Piperacillin/Tazobactam 2.25 GM in Sodium Chloride 0.9% 100 ML IVPB SCH (05:32)
[2020-01-08] MEDS: Potassium Chloride 20 MEQ in Premix Bag 1 BAG IVPB SCH ×2 (05:32→08:56)
[2020-01-08] MEDS: HumaLOG 300 UNITS/3 ML VIAL SC PRN ×2 (05:35→17:40)
--- NOTE | 2020-01-08 08:37 | CON ---
DATE OF CONSULTATION: SERVICE: Renal Medicine. HISTORY OF PRESENT ILLNESS: Ms. Chacon is a 69-year-old black female, who was admitted due to abdominal pain with persistent diarrhea. She was previously diagnosed with C difficile colitis several days ago. In addition, diarrhea is persistent. Check for stool cards showed positive for occult blood. She is now being empirically treated for colitis/infectious. CAT scan of the abdomen and pelvis showed thickening of the mucosa of the colon. We are being consulted for her management of her ESRD. She did undergo hemodialysis on Wednesday and the next dialysis will be tomorrow, Wednesday. She is still feeling tired and weak. REVIEW OF SYSTEMS: Positive for diarrhea. Denies any melena, but positive for hematochezia. No dysuria. No chest pain. No shortness of breath. No fever or chills. No syncopal episode. Appetite and energy level are decreased. Occasional joint pains. MEDICATIONS: The patient is currently on; 1. Aspirin 81 mg tablet daily. 2. Famotidine 20 mg tablet daily. 3. Heparin 5000 units subcu t.i.d. 4. Humalog sliding scale. 5. Nifedipine 90 mg daily. 6. Zosyn 2.25 g IV q.8. 7. Status post potassium infusion. 8. Rosuvastatin 40 mg at bedtime. 9. Vancomycin 125 mg p.o. q.6. PAST MEDICAL HISTORY: 1. ESRD, currently on maintenance hemodialysis on Wednesday, , and Wednesday. 2. Recent diagnosis of C difficile colitis. 3. Type 2 diabetes mellitus. 4. Hyperlipidemia. 5. Longstanding hypertension. PAST SURGICAL HISTORY: Status post cuffed hemodialysis catheter placement, status post AV fistula placement, status post partial hysterectomy, status post appendectomy, status post upper and lower GI endoscopy, status post breast biopsy right benign finding, and status post bilateral carpal tunnel surgery. SOCIAL HISTORY: The patient lives in [place]. 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 No history of smoking. No alcohol. No IV drug abuse. Education, 9th grade. No blood transfusion. , three children. ALLERGIES: CODEINE. TRAUMA: None. IMMUNIZATIONS: Up-to-date. HOSPITALIZATIONS: Please see past medical history. FAMILY HISTORY: No family history of ESRD. PHYSICAL EXAMINATION: VITAL SIGNS: Blood pressure is noted at 107/53, heart rate 94, temperature 100.7, respiratory rate 18, and O2 saturation 96%. GENERAL: Noted to be awake, alert, comfortable, not in overt distress. SKIN: Adequate turgor. HEENT: She has a pale conjunctivae. Anicteric sclerae. NECK: No neck mass. No carotid bruits. No JVD. CHEST: No deformities. LUNGS: Clear breath sounds. No wheezing. No crackles. HEART: Normal sinus rhythm. No murmur. No gallops. No rubs. ABDOMEN: Globular, soft, and nontender. No masses. EXTREMITIES: No edema. No deformities. NEUROLOGICAL: Awake, oriented to 3 spheres. Moving all extremities. No tremors. No asterixis. No ataxia. DIAGNOSTIC DATA: Laboratories of January 08, 2020; white count 26.1, hemoglobin 7.3. Sodium 129, potassium 2.6, chloride 96, carbon dioxide 22, BUN 32, creatinine 3.8, glucose 158, GFR 14 mL/minute, and calcium 8.2. Chest x-ray of January 07, 2020, showed no infiltrates, no evidence of CHF. CT scan of the abdomen and pelvis on January 07, 2020, showed thickening of the mucosa of the entire colon consistent with diffuse colitis. ASSESSMENT AND PLAN: 1. Fever/diarrhea - consider Clostridium difficile colitis, currently on oral vancomycin. Empiric IV antibiotics have also been given. 2. Anemia. Continue to observe p.r.n. blood transfusion. Hold off Epogen due to the active infection at the present time. 3. End-stage renal disease, stable. We will continue current hemodialysis regimen. Of note, the patient has shown interest to pursue peritoneal dialysis in the near future. Overall, agree with current management. Job ID: [id number]
[2020-01-08] MEDS ORDERED: Non-Formulary Item 1 EACH (Rosuvastatin Calcium [Crestor] 40 MG) PO SCH (09:00)
[2020-01-08] MEDS ORDERED: Potassium Chloride 20 MEQ in Premix Bag 1 BAG IVPB SCH (09:00)
[2020-01-08] MEDS ORDERED: NIFEdipine XL 90 MG TAB PO SCH (09:00)
[2020-01-08] MEDS: Heparin 5,000 UNITS/ML VIAL SC SCH ×3 (10:08→22:06)
[2020-01-08] MEDS: Aspirin 81 mg Enteric Coated Tablet PO SCH (10:09)
--- NOTE | 2020-01-08 12:01 | EKG ---
Test Reason : Blood Pressure : / mmHG Vent. Rate : 090 BPM Atrial Rate : 090 BPM P-R Int : 148 ms QRS Dur : 078 ms QT Int : 350 ms P-R-T Axes : 058 024 -10 degrees QTc Int : 428 ms Normal sinus rhythm Nonspecific T wave abnormality Abnormal ECG Confirmed by JENI OBANDO, MADINA ([id number]), brands editor JESSICA OLIVA ([id number]) on 01/08/2020 12:01:20 PM Referred By: Confirmed By:MADINA NGO MD
[2020-01-08] MEDS: Sodium Chloride 0.45% 1,000 ML IV SCH (12:32)
--- NOTE | 2020-01-08 15:26 | PDOC.HOSPP ---
- Subjective Encounter Date: 01/08/20 Encounter Time: 12:45 Subjective: still has very watery diarrhea multiple times no nausea or abd pain is sitting in chair - Objective Vital Signs & Weight: Vital Signs (12 hours) Temp Pulse Resp BP BP Pulse Ox 01/08/20 15:22 99.3 F 92 20 110/53 L 97 01/08/20 11:30 98.5 F 105 H 15 102/50 L 99 01/08/20 08:55 99 104/58 L 01/08/20 08:00 101.0 F H 99 20 102/48 L 96 01/08/20 04:00 100.7 F H 94 18 107/53 L 96 Weight Weight 179 lb 12.8 oz I&O: 01/07/20 01/08/20 01/09/20 06:59 06:59 06:59 Intake Total 1200 Balance 1200 Result Diagrams: 01/08/20 03:57 01/08/20 03:57 Additional Labs: Accuchecks 01/08/20 01/08/20 01/07/20 10:32 05:27 20:19 POC Glucose 178 H 163 H 195 H 01/07/20 16:56 POC Glucose 261 H Hospitalist ROS - Medication Medications: Active Medications Generic Name Dose Route Start Last Admin Trade Name Freq PRN Reason Stop Dose Admin Acetaminophen 650 mg 01/07/20 13:49 01/08/20 10:09 Tylenol PO 650 mg Q4H PRN Administration Headache/Fever/Mild Pain (1-3) Aspirin 81 mg 01/08/20 09:00 01/08/20 10:09 Ecotrin PO 81 mg DAILY ORIANA Administration Heparin Sodium (Porcine) 5,000 units 01/07/20 15:00 01/08/20 10:08 Heparin SC 5,000 units TID ORIANA Administration Sodium Chloride 1,000 mls @ 75 mls/hr 01/08/20 10:30 01/08/20 12:32 1/2 Normal Saline IV 1,000 mls .[id number] ORIANA Administration Insulin Human Lispro 0 units 01/07/20 13:57 01/08/20 05:35 Humalog SC 2 unit .MILD SLIDING SCALE PRN Administration Mild Correctional Scale Rosuvastatin Calcium 40 mg 01/07/20 21:00 01/07/20 21:50 Crestor PO 40 mg HS ORIANA Administration Sodium Chloride 10 ml 01/07/20 21:00 01/08/20 10:12 Flush - Normal Saline IVF Not Given Q12HR ORIANA Vancomycin HCl 125 mg 01/07/20 14:00 01/08/20 10:11 First Vancomycin PO 125 mg Q6H ORIANA Administration - Exam General Appearance: awake alert Eye: PERRL, anicteric sclera ENT: no oropharyngeal lesions, moist mucosa Neck: supple, no JVD Heart: RRR, no murmur Respiratory: no wheezes, no rales Gastrointestinal: soft, non-tender, non-distended, normal bowel sounds Extremities: no cyanosis, no edema Neurological: cranial nerve grossly intact, no focal deficits Psychiatric: normal affect, A&O x 3 Hosp A/P (1) C. difficile colitis Code(s): A04.72 - ENTEROCOLITIS D/T CLOSTRIDIUM DIFFICILE, NOT SPCF RECUR Status: Acute (2) Sepsis Code(s): A41.9 - SEPSIS, UNSPECIFIED ORGANISM Status: Acute Qualifiers: Sepsis acute organ dysfunction status: without acute organ dysfunction (3) End stage renal disease on dialysis Code(s): N18.6 - END STAGE RENAL DISEASE; Z99.2 - DEPENDENCE ON RENAL DIALYSIS Status: Chronic (4) HLD (hyperlipidemia) Code(s): E78.5 - HYPERLIPIDEMIA, UNSPECIFIED Status: Chronic Qualifiers: Hyperlipidemia type: unspecified Qualified Code(s): E78.5 - Hyperlipidemia , unspecified (5) Anemia in chronic kidney disease Code(s): N18.9 - CHRONIC KIDNEY DISEASE, UNSPECIFIED; D63.1 - ANEMIA IN CHRONIC KIDNEY DISEASE Status: Chronic Qualifiers: Chronic kidney disease stage: on chronic dialysis Qualified Code(s): N18.6 - End stage renal disease; D63.1 - Anemia in chronic kidney disease; Z99.2 - Dependence on renal dialysis (6) Diabetes mellitus Code(s): E11.9 - TYPE 2 DIABETES MELLITUS WITHOUT COMPLICATIONS Status: Chronic Qualifiers: Diabetes mellitus type: type 2 Diabetes mellitus rn long term care insulin use: without chcf use Diabetes mellitus complication status: with kidney complications Diabetes mellitus complication detail: with chronic kidney disease Chronic kidney disease stage: on chronic dialysis Qualified Code(s) : E11.22 - Type 2 diabetes mellitus with diabetic chronic kidney disease; N18.6 - End stage renal disease; Z99.2 - Dependence on renal dialysis (7) Hypertension Code(s): I10 - ESSENTIAL (PRIMARY) HYPERTENSION Status: Chronic Qualifiers: Hypertension type: essential hypertension Qualified Code(s): I10 - Essential (primary) hypertension - Plan is on vanc po dc zosyn no extra fluid removal with HD, start iv fluids dc procardia xl, continue asp, crestor GI consultation, has severe c.diff pancolitis tx to medical floor
[2020-01-08] MEDS ORDERED: Sodium Chloride 0.9% 500 ML IV SCH (16:00)
[2020-01-08] MEDS: metroNIDAZOLE 500 MG in Premix Bag 1 BAG IVPB SCH (21:59)
[2020-01-08] MEDS: Rosuvastatin 20 MG TAB PO SCH (21:59)
[2020-01-08] MEDS: Famotidine 20 MG TAB PO SCH (22:09)
[2020-01-09] MEDS: Sodium Chloride 0.45% 1,000 ML IV SCH ×2 (02:00→17:34)
[2020-01-09] MEDS: Vancomycin HCl 25 MG/ML Oral PO SCH ×4 (03:03→20:36)
[2020-01-09] MEDS: metroNIDAZOLE 500 MG in Premix Bag 1 BAG IVPB SCH ×3 (05:08→21:10)
[2020-01-09 05:22] LABS: Anion Gap 17 mmol/L (10-20); BUN (Urea Nitrogen) 38 mg/dL (9.8-20.1); Calc. Creatinine Clearance 15 mL/min (70-130); Calcium 7.9 mg/dL (7.8-10.44); Carbon Dioxide 15 mmol/L (23-31); Chloride 97 mmol/L (98-107); Estimated GFR-MDRD 11; Glucose 157 mg/dL (80-115); Sodium 126 mmol/L (136-145)
[2020-01-09 05:28] LABS: Potassium 2.8 mmol/L (3.5-5.1)
[2020-01-09 05:46] LABS: Band 31 % (5-11); Hemoglobin 7.4 g/dL (12.0-16.0); Lymphocytes 5 % (21-51); MDiff Complete? YES; Mean Corpuscular HGB CONC 31.3 g/dL (32.0-36.0); Mean Corpuscular Hemoglobin 26.2 pg (27.0-31.0); Mean Corpuscular Volume 83.9 fL (78.0-98.0); Mean Platelet Volume 11.3 fL (7.4-10.4); Monocytes 2 % (0-10); Neutrophil 62 % (42-75); Platelet Count 167 thou/uL (130-400); Platelet Morphology Comment Appears Adequate; RBC Distribution Width 18.5 % (11.5-14.5); Red Blood Cell (RBC) Count 2.83 mill/uL (4.20-5.40); White Blood Cell (WBC) Count 32.5 thou/uL (4.8-10.8)
--- NOTE | 2020-01-09 07:15 | CON ---
DATE OF CONSULTATION: REASON FOR CONSULT: C diff colitis, sepsis. CONSULTING PHYSICIAN: Dr. Greenwood. HISTORY OF PRESENT ILLNESS: Ms. Chacon, as Dr. Greenwood has noted, has C diff colitis. She was recently in the hospital with severe pneumonia, by her report, at which time she had to go on dialysis and was intubated in the ICU and on multiple antibiotics. She states this was not COVID related. She was discharged home on 11/22 after being admitted on 11/13 with discharge diagnoses of DKA, end-stage renal disease, on dialysis, hypertension, obstructive sleep apnea, anemia of chronic disease, and she was sent home on nifedipine, MiraLAX, Crestor, CoQ10, Lantus, NovoLog, carvedilol, and aspirin. The patient states that she began to have severe diarrhea in last week or two. She saw her PCP, Dr. Guajardo and had stool studies ordered on 01/04, stool for Campylobacter is negative. Shiga toxin is negative. C diff antigen toxin positive. Routine cultures pending. On 01/06, the patient came to the emergency room for blood in the stool. She states she is going to bathroom about 10 or 15 times a day with mucus and blood only. She was having fever up to 101 to 102. As she was feeling weaker and weaker, she came to the emergency room. Decision was made to admit her to the hospital, which was done yesterday. She was started on broad-spectrum antibiotics. She is still having frequent stools, but no fever. With the diarrhea, she has cramping in lower abdomen, which is resolved with diarrhea. She has had no nausea or vomiting. She has not had an appetite in a few days. PAST MEDICAL HISTORY: 1. End-stage renal disease. She sees Dr. Sands for this. 2. Long history of microcytic anemia dating back to 2002. She has had upper and lower endoscopies and capsule endoscopy in 2017 with no findings noted. She has had negative evaluation for thalassemia in 2003 with hemoglobin electrophoresis. She has intermittently had low iron levels. 3. Hyperlipidemia, hypertension, obstructive sleep apnea, anemia of chronic disease and chronic iron deficiency anemia, chronic renal failure, diabetes. PAST SURGICAL HISTORY: Breast biopsy, aortic aneurysm repair, EGD, colonoscopy, and capsule endoscopy in 2017. FAMILY HISTORY: Negative for colorectal cancer, liver disease, or anemia. SOCIAL HISTORY: She does not smoke. Does not drink. She does not use drugs. REVIEW OF SYSTEMS: Negative for dysphagia, odynophagia, melena, hematochezia, or hematemesis. Negative for dysuria, frequency, or urgency. MEDICATIONS: Here; 1. Tylenol. 2. Aspirin. 3. Vancomycin 125 p.o. q.6. 4. Half-normal saline at 75 an hour. 5. Crestor. 6. Humalog. 7. Heparin 5000 t.i.d. subcu. 8. Pepcid. At home, she was on; 1. CoQ10. 2. Crestor. 3. Nifedipine. 4. Levemir. 5. Aspirin. 6. Carvedilol. Job ID: [id number]
[2020-01-09] MEDS: Heparin 5,000 UNITS/ML VIAL SC SCH ×3 (08:27→20:36)
[2020-01-09] MEDS: Acetaminophen 325 MG TAB PO PRN ×3 (08:27→21:10)
[2020-01-09] MEDS: Aspirin 81 mg Enteric Coated Tablet PO SCH (08:28)
--- NOTE | 2020-01-09 09:37 | PRG ---
DATE OF SERVICE: 01/09/2020 SUBJECTIVE: Ms. Chacon is a 69-year-old black female with ESRD and on maintenance hemodialysis on Wednesday, , and Wednesday. She was admitted for C diff colitis. She is still having diarrhea. The patient declined to have her dialysis done today. We will schedule her tomorrow. OBJECTIVE: VITAL SIGNS: Blood pressure 121/56, heart rate 111, respiratory rate 18, temperature 101.5, O2 saturation 99% room air. GENERAL EXAM: Awake, alert, comfortable, not in overt distress. SKIN: Adequate turgor. HEENT: Pinkish conjunctivae. Anicteric sclerae. NECK: No neck mass. No carotid bruits. No JVD. CHEST: No deformities. LUNGS: Clear breath sounds. No wheezing. No crackles. HEART: Normal sinus rhythm. No murmur. No gallops. No rubs. ABDOMEN: Globular, soft, nontender. No masses. EXTREMITIES: No edema. No deformities. LABORATORY DATA: Laboratories of January 09, 2020; white count 32.5, hemoglobin 7.4. Sodium 126, potassium 2.8, chloride 97, carbon dioxide 15, BUN 38, creatinine 4.68, calcium 7.9. ASSESSMENT AND PLAN: 1. End-stage renal disease, stable. We will hold off the hemodialysis today. She is complaining of frequent diarrhea. No indication for an emergent hemodialysis. The patient is not volume overloaded and she is not hyperkalemic. 2. Clostridium difficile colitis. The patient is on oral vancomycin at 500 mg q.6. 3. Blood culture for January 07, 2020, showed coag-negative staphylococcus. The patient was empirically given IV Zosyn initially. The patient may eventually need to be placed on a regular Zosyn dosing. 4. For the moment, we will be holding off dialysis. We will reschedule tomorrow. Job ID: [id number]
--- NOTE | 2020-01-09 11:10 | PRG ---
DATE OF SERVICE: 01/09/2020 SUBJECTIVE: Ms. Chacon continued to have diarrhea through the night about 10 bowel movements last night and this morning. She estimates this has been loose stool. She did spike a fever to 101.5, but this came down nicely with Tylenol. She is not really having much abdominal pain, no nausea, and she tolerated her diet this morning. OBJECTIVE: VITAL SIGNS: Temperature 99.5, pulse 106, blood pressure 121/56, 97% oxygen saturation on room air. GENERAL: No acute distress. Lying in bed comfortably. HEART: Regular rate and rhythm. LUNGS: Clear to auscultation bilaterally. ABDOMEN: Nondistended. Bowel sounds are present throughout. The abdomen is soft. Some minimal tenderness to palpation diffusely, but no guarding or rebound tenderness. EXTREMITIES: No peripheral edema. LABORATORY STUDIES: WBC is up to 32.5; hemoglobin 7.4, which is stable; hematocrit 23.7; platelets 167. INR 1.2. Sodium 126, potassium 2.8, BUN 38, creatinine 4.68. ASSESSMENT AND PLAN: 1. Clostridium difficile colitis. 2. Leukocytosis, worsening from yesterday. 3. Fever, spiked last night. The patient's presentation is consistent with severe Clostridium difficile colitis, however, I do not see any significant abdominal distention or pain to suggest development of toxic megacolon. In fact, she is tolerating her diet. Agree with continued aggressive treatment including oral vancomycin 500 mg 4 times daily and IV Flagyl as started by Dr. Burnham yesterday. Agree that other antibiotics should be avoided if at all possible during this time. If the patient was to develop worsening abdominal pain or progressive abdominal distention, have low threshold to get abdominal imaging with KUB. Job ID: [id number]
[2020-01-09] MEDS: Potassium Chloride 20 MEQ TAB PO SCH ×2 (11:35→17:34)
[2020-01-09] MEDS: HumaLOG 300 UNITS/3 ML VIAL SC PRN (11:54)
[2020-01-09] MEDS ORDERED: Piperacillin/Tazobactam 2.25 GM in Sodium Chloride 0.9% 100 ML IVPB SCH (12:00)
--- NOTE | 2020-01-09 13:32 | PDOC.HOSPP ---
- Subjective Encounter Date: 01/09/20 Encounter Time: 11:00 Subjective: abd dyscomfort is better, no nausea tolerating oral diet says she is ambulating in the room but feels weak - Objective Vital Signs & Weight: Vital Signs (12 hours) Temp Pulse Resp BP Pulse Ox 01/09/20 11:10 99.3 F 106 H 16 114/51 L 98 01/09/20 09:52 99.5 F 106 H 20 97 01/09/20 08:00 99 01/09/20 07:45 101.5 F H 111 H 18 121/56 L 99 01/09/20 04:00 99.4 F 92 16 124/62 100 Weight Admit Weight 179 lb 12.8 oz Weight 179 lb 12.8 oz I&O: 01/08/20 01/09/20 01/10/20 06:59 06:59 06:59 Intake Total 1200 480 Balance 1200 480 Result Diagrams: 01/09/20 04:45 01/09/20 04:45 Additional Labs: Accuchecks 01/09/20 01/08/20 01/08/20 10:59 22:10 20:34 POC Glucose 254 H 227 H 323 H 01/08/20 15:45 POC Glucose 230 H Hospitalist ROS - Medication Medications: Active Medications Generic Name Dose Route Start Last Admin Trade Name Chunq PRN Reason Stop Dose Admin Acetaminophen 650 mg 01/07/20 13:49 01/09/20 08:27 Tylenol PO 650 mg Q4H PRN Administration Headache/Fever/Mild Pain (1-3) Aspirin 81 mg 01/08/20 09:00 01/09/20 08:28 Ecotrin PO 81 mg DAILY ORIANA Administration Famotidine 20 mg 01/08/20 21:00 01/08/20 22:09 Pepcid PO 20 mg 2100 ORIANA Administration Heparin Sodium (Porcine) 5,000 units 01/07/20 15:00 01/09/20 08:27 Heparin SC 5,000 units TID ORIANA Administration Sodium Chloride 1,000 mls @ 75 mls/hr 01/08/20 10:30 01/09/20 02:00 1/2 Normal Saline IV 1,000 mls .[id number] ORIANA Administration Metronidazole 500 mg/ Device 100 mls @ 100 mls/hr 01/08/20 22:00 01/09/20 05: 08 IVPB 100 mls Q8HR ORIANA Administration Insulin Human Lispro 0 units 01/07/20 13:57 01/09/20 11:54 Humalog SC 4 unit .MILD SLIDING SCALE PRN Administration Mild Correctional Scale Potassium Chloride 40 meq 01/09/20 12:00 01/09/20 11:35 K-Dur PO 01/10/20 00:00 40 meq Q6HR ORIANA Administration Rosuvastatin Calcium 40 mg 01/07/20 21:00 01/08/20 21:59 Crestor PO 40 mg HS ORIANA Administration Sodium Chloride 10 ml 01/07/20 21:00 01/09/20 08:28 Flush - Normal Saline IVF Not Given Q12HR ORIANA Vancomycin HCl 500 mg 01/08/20 21:00 01/09/20 08:30 First Vancomycin PO 500 mg 0300,0900,1500,2100 ORIANA Administration - Exam General Appearance: awake alert Eye: anicteric sclera ENT: no oropharyngeal lesions, dry oral mucosa Neck: supple, no JVD Heart: RRR, no gallops Respiratory: no wheezes, no rales Gastrointestinal: soft, non-distended, normal bowel sounds, no guarding, no rigidity Extremities: no cyanosis, no edema Neurological: cranial nerve grossly intact, no focal deficits Psychiatric: normal affect, A&O x 3 Hosp A/P (1) C. difficile colitis Code(s): A04.72 - ENTEROCOLITIS D/T CLOSTRIDIUM DIFFICILE, NOT SPCF RECUR Status: Acute (2) Sepsis Code(s): A41.9 - SEPSIS, UNSPECIFIED ORGANISM Status: Acute Qualifiers: Sepsis acute organ dysfunction status: without acute organ dysfunction (3) End stage renal disease on dialysis Code(s): N18.6 - END STAGE RENAL DISEASE; Z99.2 - DEPENDENCE ON RENAL DIALYSIS Status: Chronic (4) HLD (hyperlipidemia) Code(s): E78.5 - HYPERLIPIDEMIA, UNSPECIFIED Status: Chronic Qualifiers: Hyperlipidemia type: unspecified Qualified Code(s): E78.5 - Hyperlipidemia , unspecified (5) Anemia in chronic kidney disease Code(s): N18.9 - CHRONIC KIDNEY DISEASE, UNSPECIFIED; D63.1 - ANEMIA IN CHRONIC KIDNEY DISEASE Status: Chronic Qualifiers: Chronic kidney disease stage: on chronic dialysis Qualified Code(s): N18.6 - End stage renal disease; D63.1 - Anemia in chronic kidney disease; Z99.2 - Dependence on renal dialysis (6) Diabetes mellitus Code(s): E11.9 - TYPE 2 DIABETES MELLITUS WITHOUT COMPLICATIONS Status: Chronic Qualifiers: Diabetes mellitus type: type 2 Diabetes mellitus mcc insulin use: without mcc use Diabetes mellitus complication status: with kidney complications Diabetes mellitus complication detail: with chronic kidney disease Chronic kidney disease stage: on chronic dialysis Qualified Code(s) : E11.22 - Type 2 diabetes mellitus with diabetic chronic kidney disease; N18.6 - End stage renal disease; Z99.2 - Dependence on renal dialysis (7) Hypertension Code(s): I10 - ESSENTIAL (PRIMARY) HYPERTENSION Status: Chronic Qualifiers: Hypertension type: essential hypertension Qualified Code(s): I10 - Essential (primary) hypertension - Plan is on vanc po and iv flagyl dc zosyn, coag -ve staph likely contaminant in her blood no extra fluid removal with HD, continue iv fluids continue asp, crestor d/w Dr.Case Blanco, has severe c.diff pancolitis still has increased freq of diarrhea but better than yesterday further imaging per GI advice
[2020-01-09] MEDS: Rosuvastatin 20 MG TAB PO SCH (20:36)
[2020-01-09] MEDS: Famotidine 20 MG TAB PO SCH (20:36)
[2020-01-10] MEDS: Potassium Chloride 20 MEQ TAB PO SCH ×2 (00:55→16:14)
[2020-01-10] MEDS: Vancomycin HCl 25 MG/ML Oral PO SCH ×4 (03:03→21:19)
[2020-01-10] MEDS: Sodium Chloride 0.45% 1,000 ML IV SCH ×2 (05:29→21:20)
[2020-01-10] MEDS: metroNIDAZOLE 500 MG in Premix Bag 1 BAG IVPB SCH ×3 (05:30→21:19)
[2020-01-10] MEDS: Heparin 5,000 UNITS/ML VIAL SC SCH ×3 (08:13→21:19)
[2020-01-10] MEDS: Aspirin 81 mg Enteric Coated Tablet PO SCH (08:13)
[2020-01-10 08:22] LABS: Hemoglobin 7.8 g/dL (12.0-16.0); Mean Corpuscular HGB CONC 30.3 g/dL (32.0-36.0); Mean Corpuscular Hemoglobin 25.5 pg (27.0-31.0); Mean Corpuscular Volume 84.1 fL (78.0-98.0); Mean Platelet Volume 11.2 fL (7.4-10.4); Platelet Count 207 thou/uL (130-400); RBC Distribution Width 18.9 % (11.5-14.5); Red Blood Cell (RBC) Count 3.06 mill/uL (4.20-5.40); White Blood Cell (WBC) Count 31.1 thou/uL (4.8-10.8)
[2020-01-10 08:52] LABS: HBSAg Index 0.43 S/CO (0-0.99); Hep B Surf Ag Non-Reactive S/CO (NonReactive)
--- NOTE | 2020-01-10 09:08 | PRG ---
DATE OF SERVICE: 01/10/2020 SUBJECTIVE: Ms. Chacon is a 69-year-old black female with ESRD. She was admitted for C diff colitis. She continues to have persistent diarrhea. She is currently on Flagyl and oral vancomycin. No other complaints. Denies any chest pain or shortness of breath. OBJECTIVE: VITAL SIGNS: Blood pressure is 135/65, heart rate 97, respiratory rate 18, temperature 99.6, O2 saturation 100%. GENERAL EXAM: The patient is awake, sitting comfortable. Not in overt distress. SKIN: Adequate turgor. HEENT: Slightly pale conjunctivae. Anicteric sclerae. NECK: No neck mass. No carotid bruits. No JVD. CHEST: No deformities. LUNGS: Clear breath sounds. No wheezing. No crackles. HEART: Normal sinus rhythm. No murmur. No gallops or rubs. ABDOMEN: Globular, soft. Nontender. No masses. EXTREMITIES: Positive for edema. MEDICATIONS: Medications of January 10, 2020, were reviewed. LABORATORY DATA: Laboratories of January 10, 2020; white count 31.1, hemoglobin 7.8. January 09, 2020; sodium 126, potassium 2.8, chloride 97, carbon dioxide 15, BUN 38, creatinine 4.68, calcium 7.9. ASSESSMENT AND PLAN: 1. End-stage renal disease, stable. We will continue current hemodialysis regimen. Due to the frequent diarrhea, we will hold off dialysis today. We are awaiting further repeat basic metabolic panel. The patient is not volume overloaded. We will schedule her tomorrow's dialysis. 2. Clostridium difficile colitis, currently on Flagyl and oral vancomycin. Continue supportive care. Case discussed at length with the nursing staff. Recheck CBC and basic metabolic panel in a.m. Job ID: [id number]
[2020-01-10 09:35] LABS: Band 10 % (5-11); Hypochromia SLIGHT = 6-15 cells (100X) (0-5/hpf); Lymphocytes 5 % (21-51); MDiff Complete? YES; Monocytes 8 % (0-10); Neutrophil 77 % (42-75); Ovalocytes SLIGHT = 2-5 cells (100X) (0-1/hpf); Platelet Morphology Comment Appears Adequate; Polychromasia SLIGHT = 2-3 cells (100X) (0-2/hpf)
[2020-01-10 10:55] LABS: Anion Gap 15 mmol/L (10-20); BUN (Urea Nitrogen) 42 mg/dL (9.8-20.1); Calc. Creatinine Clearance 12 mL/min (70-130); Carbon Dioxide 15 mmol/L (23-31); Chloride 98 mmol/L (98-107); Estimated GFR-MDRD 9; Potassium 3.2 mmol/L (3.5-5.1); Sodium 125 mmol/L (136-145)
[2020-01-10 10:56] LABS: Calcium 7.5 mg/dL (7.8-10.44); Glucose 144 mg/dL (80-115)
[2020-01-10] MEDS: HumaLOG 300 UNITS/3 ML VIAL SC PRN ×2 (12:09→16:14)
--- NOTE | 2020-01-10 12:59 | PDOC.HOSPP ---
- Subjective Encounter Date: 01/10/20 Encounter Time: 11:00 Subjective: still has a lot of diarrhea, no nausea or abd pain is ambulating to commode and back - Objective Vital Signs & Weight: Vital Signs (12 hours) Temp Pulse Resp BP Pulse Ox 01/10/20 12:00 97.6 F 96 18 117/54 L 100 01/10/20 07:30 99.3 F 100 18 118/56 L 98 01/10/20 04:00 99.6 F 97 18 135/65 100 Weight Admit Weight 179 lb 12.8 oz Weight 179 lb 12.8 oz I&O: 01/09/20 01/10/20 01/11/20 06:59 06:59 06:59 Intake Total 480 3325 Balance 480 3325 Result Diagrams: 01/10/20 08:00 01/10/20 09:51 Additional Labs: Accuchecks 01/10/20 01/10/20 01/09/20 12:01 04:56 20:36 POC Glucose 224 H 158 H 242 H 01/09/20 16:17 POC Glucose 128 H Hospitalist ROS - Medication Medications: Active Medications Generic Name Dose Route Start Last Admin Trade Name Freq PRN Reason Stop Dose Admin Acetaminophen 650 mg 01/07/20 13:49 01/09/20 21:10 Tylenol PO 650 mg Q4H PRN Administration Headache/Fever/Mild Pain (1-3) Aspirin 81 mg 01/08/20 09:00 01/10/20 08:13 Ecotrin PO 81 mg DAILY ORIANA Administration Famotidine 20 mg 01/08/20 21:00 01/09/20 20:36 Pepcid PO 20 mg 2100 ORIANA Administration Heparin Sodium (Porcine) 5,000 units 01/07/20 15:00 01/10/20 08:13 Heparin SC 5,000 units TID ORIANA Administration Sodium Chloride 1,000 mls @ 75 mls/hr 01/08/20 10:30 01/10/20 05:29 1/2 Normal Saline IV 1,000 mls .[id number] ORIANA Administration Metronidazole 500 mg/ Device 100 mls @ 100 mls/hr 01/08/20 22:00 01/10/20 05: 30 IVPB 100 mls Q8HR ORIANA Administration Insulin Human Lispro 0 units 01/07/20 13:57 01/10/20 12:09 Humalog SC 3 unit .MILD SLIDING SCALE PRN Administration Mild Correctional Scale Rosuvastatin Calcium 40 mg 01/07/20 21:00 01/09/20 20:36 Crestor PO 40 mg HS ORIANA Administration Sodium Chloride 10 ml 01/07/20 21:00 01/10/20 08:34 Flush - Normal Saline IVF Not Given Q12HR ORIANA Vancomycin HCl 500 mg 01/08/20 21:00 01/10/20 08:40 First Vancomycin PO 500 mg 0300,0900,1500,2100 ORIANA Administration - Exam General Appearance: awake alert Eye: PERRL, anicteric sclera ENT: no oropharyngeal lesions, moist mucosa Neck: supple, no JVD Heart: RRR, no murmur Respiratory: no wheezes, no rales Gastrointestinal: soft, non-distended, normal bowel sounds, no guarding, no rigidity Extremities: no cyanosis, no edema Neurological: cranial nerve grossly intact, no focal deficits Hosp A/P (1) C. difficile colitis Code(s): A04.72 - ENTEROCOLITIS D/T CLOSTRIDIUM DIFFICILE, NOT SPCF RECUR Status: Acute (2) Sepsis Code(s): A41.9 - SEPSIS, UNSPECIFIED ORGANISM Status: Acute Qualifiers: Sepsis acute organ dysfunction status: without acute organ dysfunction (3) End stage renal disease on dialysis Code(s): N18.6 - END STAGE RENAL DISEASE; Z99.2 - DEPENDENCE ON RENAL DIALYSIS Status: Chronic (4) HLD (hyperlipidemia) Code(s): E78.5 - HYPERLIPIDEMIA, UNSPECIFIED Status: Chronic Qualifiers: Hyperlipidemia type: unspecified Qualified Code(s): E78.5 - Hyperlipidemia , unspecified (5) Anemia in chronic kidney disease Code(s): N18.9 - CHRONIC KIDNEY DISEASE, UNSPECIFIED; D63.1 - ANEMIA IN CHRONIC KIDNEY DISEASE Status: Chronic Qualifiers: Chronic kidney disease stage: on chronic dialysis Qualified Code(s): N18.6 - End stage renal disease; D63.1 - Anemia in chronic kidney disease; Z99.2 - Dependence on renal dialysis (6) Diabetes mellitus Code(s): E11.9 - TYPE 2 DIABETES MELLITUS WITHOUT COMPLICATIONS Status: Chronic Qualifiers: Diabetes mellitus type: type 2 Diabetes mellitus continuous churn buttermaker insulin use: without continuous churn buttermaker use Diabetes mellitus complication status: with kidney complications Diabetes mellitus complication detail: with chronic kidney disease Chronic kidney disease stage: on chronic dialysis Qualified Code(s) : E11.22 - Type 2 diabetes mellitus with diabetic chronic kidney disease; N18.6 - End stage renal disease; Z99.2 - Dependence on renal dialysis (7) Hypertension Code(s): I10 - ESSENTIAL (PRIMARY) HYPERTENSION Status: Chronic Qualifiers: Hypertension type: essential hypertension Qualified Code(s): I10 - Essential (primary) hypertension - Plan is on vanc po and iv flagyl coag -ve staph likely contaminant in her blood no extra fluid removal with HD likely in am, continue iv fluids continue asp, crestor has severe c.diff pancolitis still has increased freq of diarrhea further imaging per GI advice
--- NOTE | 2020-01-10 18:03 | PRG ---
DATE OF SERVICE: 01/10/2020 SUBJECTIVE: The patient is sitting up outside of bed. She still has frequent loose bowel movements; however, overall stool volume output is significantly less since this morning according to the patient. She denies any nausea or vomiting. She is eating about half of her tray portion. There are some vague nonlocalizing abdominal cramps. PHYSICAL EXAMINATION: VITAL SIGNS: Temperature 97.6, blood pressure 117/54, and pulse 96. GENERAL: She is alert, conversant, does not appear in any distress, does not appear toxic. HEENT: Anicteric sclerae. Oropharynx is moist. CV: Normal S1 and S2. Regular rate and rhythm. CHEST: Breath sounds, clear lung olson. ABDOMEN: Soft. No distention. No tympany. No tenderness on palpation. She has active bowel sounds. EXTREMITIES: No edema. LABORATORY DATA: WBC 31.1, hemoglobin 7.8, and platelet count 207. Sodium 125, potassium 3.2, chloride 98, CO2 of 15, creatinine 5.65, and BUN 42. ASSESSMENT: Severe Clostridium difficile colitis. Stool output appears to be less this morning. Hopefully, she is turning the corner. The patient's leukocytosis is unchanged; however, she is afebrile with a benign abdominal exam. Overall, she remains stable. RECOMMENDATION: 1. Continue with high-dose oral vancomycin 500 mg q.i.d. and metronidazole 500 mg IV q.8. 2. Continue to follow closely, no new recommendation. Job ID: [id number] MTDD
[2020-01-10] MEDS: Famotidine 20 MG TAB PO SCH (21:19)
[2020-01-10] MEDS: Rosuvastatin 20 MG TAB PO SCH (21:19)
[2020-01-11] MEDS: Vancomycin HCl 25 MG/ML Oral PO SCH ×4 (02:52→21:59)
[2020-01-11 04:34] LABS: Anion Gap 15 mmol/L (10-20); BUN (Urea Nitrogen) 44 mg/dL (9.8-20.1); Calc. Creatinine Clearance 11 mL/min (70-130); Calcium 7.7 mg/dL (7.8-10.44); Carbon Dioxide 13 mmol/L (23-31); Chloride 99 mmol/L (98-107); Estimated GFR-MDRD 8; Glucose 98 mg/dL (80-115); Sodium 124 mmol/L (136-145)
[2020-01-11 04:37] LABS: Potassium 2.9 mmol/L (3.5-5.1)
[2020-01-11 05:02] LABS: Band 30 % (5-11); Lymphocytes 8 % (21-51); MDiff Complete? YES; Mean Corpuscular HGB CONC 30.8 g/dL (32.0-36.0); Mean Corpuscular Hemoglobin 25.7 pg (27.0-31.0); Mean Corpuscular Volume 83.4 fL (78.0-98.0); Mean Platelet Volume 10.8 fL (7.4-10.4); Monocytes 3 % (0-10); Neutrophil 59 % (42-75); Nucleated RBC 2 % (0); Platelet Count 196 thou/uL (130-400); Platelet Morphology Comment Appears Adequate; Red Blood Cell (RBC) Count 2.73 mill/uL (4.20-5.40); White Blood Cell (WBC) Count 21.3 thou/uL (4.8-10.8)
[2020-01-11] MEDS: Potassium Chloride 20 MEQ TAB PO SCH ×4 (05:46→16:27)
[2020-01-11] MEDS: metroNIDAZOLE 500 MG in Premix Bag 1 BAG IVPB SCH ×3 (05:46→22:00)
[2020-01-11] MEDS ORDERED: Heparin 10,000 UNITS/ 10 ML VIAL ONE (08:38)
--- NOTE | 2020-01-11 09:17 | PRG ---
DATE OF SERVICE: SUBJECTIVE: Ms. Chacon is a 69-year-old black female with ESRD-on hemodialysis, and admitted for C diff colitis. She has been started on metronidazole and oral vancomycin. In addition, the patient is currently undergoing hemodialysis today, minimal fluid removal. Adjusting potassium bath due to the hypokalemia of the patient. No other complaints. No chest pain or shortness of breath. OBJECTIVE: VITAL SIGNS: Blood pressure is 133/63, heart rate 83, respiratory rate 16, temperature 97.9, and O2 saturation 100%. GENERAL: The patient is awake, alert, comfortable, not in overt distress. SKIN: Adequate turgor. HEENT: Slightly pale conjunctivae. Anicteric sclerae. No neck mass. No carotid bruits. No JVD. CHEST: No deformities. LUNGS: Clear breath sounds. HEART: Normal sinus rhythm. No murmur. No gallops. No rubs. ABDOMEN: Globular, soft, nontender. No masses. EXTREMITIES: No edema. No deformities. MEDICATIONS: Medications of January 11, 2020, were reviewed. LABORATORY DATA: Laboratories of January 11, 2020: White count 21.2, hemoglobin 7, sodium 124, potassium 2.9, chloride 99, carbon dioxide 13, BUN 44, creatinine 6.22, calcium 7.7, albumin 2.3. ASSESSMENT AND PLAN: 1. End-stage renal disease-the patient undergoing hemodialysis. Our plan is to resume back her three times a week hemodialysis. Minimal fluid removal due to the previous diarrhea. 2. No changes will be made with the current dialysis regimen. Adjust potassium bath to a 4.0 due to the hypokalemia. 3. Anemia. We will resume Epogen at 7500 units subcu every week. 4. Clostridium difficile colitis, on antibiotics, GI following. Frequency of bowel movements somewhat decreased. 5. Agree with current management. Job ID: [id number]
[2020-01-11] MEDS: Sodium Chloride 0.45% 1,000 ML IV SCH ×2 (14:01→18:28)
[2020-01-11] MEDS: Heparin 5,000 UNITS/ML VIAL SC SCH ×3 (14:04→22:00)
[2020-01-11] MEDS: Aspirin 81 mg Enteric Coated Tablet PO SCH (14:50)
[2020-01-11] MEDS: EPOETIN ALFA-EPBX (ESRD) 4,000 UNIT/ML VIAL SC SCH (14:52)
--- NOTE | 2020-01-11 15:06 | PDOC.HOSPP ---
- Subjective Encounter Date: 01/11/20 Encounter Time: 14:00 Subjective: no abd pain or nausea still has watery stools but is tolerating oral diet - Objective Vital Signs & Weight: Vital Signs (12 hours) Temp 01/11/20 03:53 98.6 F Weight Admit Weight 179 lb 12.8 oz Weight 179 lb 12.8 oz I&O: 01/10/20 01/11/20 01/12/20 06:59 06:59 06:59 Intake Total 3325 1860 Balance 3325 1860 Result Diagrams: 01/11/20 03:55 01/11/20 03:55 Additional Labs: Accuchecks 01/11/20 01/10/20 01/10/20 13:04 20:12 15:31 POC Glucose 93 142 H 210 H Hospitalist ROS - Medication Medications: Active Medications Generic Name Dose Route Start Last Admin Trade Name Freq PRN Reason Stop Dose Admin Acetaminophen 650 mg 01/07/20 13:49 01/09/20 21:10 Tylenol PO 650 mg Q4H PRN Administration Headache/Fever/Mild Pain (1-3) Aspirin 81 mg 01/08/20 09:00 01/11/20 14:50 Ecotrin PO 81 mg DAILY ORIANA Administration Epoetin Ronaldo-epbx 7,500 unit 01/11/20 09:15 01/11/20 14:52 Retacrit SC 7,500 unit Q7D ORIANA Administration Heparin Sodium (Porcine) 5,000 units 01/07/20 15:00 01/11/20 14:51 Heparin SC 5,000 units TID ORIANA Administration Sodium Chloride 1,000 mls @ 75 mls/hr 01/08/20 10:30 01/11/20 14:01 1/2 Normal Saline IV Not Given .[id number] ORIANA Metronidazole 500 mg/ Device 100 mls @ 100 mls/hr 01/08/20 22:00 01/11/20 14: 51 IVPB 100 mls Q8HR ORIANA Administration Insulin Human Lispro 0 units 01/07/20 13:57 01/10/20 16:14 Humalog SC 3 unit .MILD SLIDING SCALE PRN Administration Mild Correctional Scale Potassium Chloride 40 meq 01/10/20 17:00 01/11/20 14:04 K-Dur PO Not Given BID-WM [facility] Rosuvastatin Calcium 40 mg 01/07/20 21:00 01/10/20 21:19 Crestor PO 40 mg HS ORIANA Administration Sodium Chloride 10 ml 01/07/20 21:00 01/11/20 14:05 Flush - Normal Saline IVF Not Given Q12HR ORIANA Vancomycin HCl 500 mg 01/08/20 21:00 01/11/20 14:51 First Vancomycin PO 500 mg 0300,0900,1500,2100 ORIANA Administration - Exam General Appearance: awake alert Eye: PERRL, anicteric sclera ENT: no oropharyngeal lesions, moist mucosa Neck: supple, symmetric Heart: no murmur, no gallops Respiratory: no wheezes, no rales Gastrointestinal: soft, non-tender, non-distended, normal bowel sounds, no guarding, no rigidity Extremities: no cyanosis, no edema Neurological: cranial nerve grossly intact, no focal deficits Hosp A/P (1) C. difficile colitis Code(s): A04.72 - ENTEROCOLITIS D/T CLOSTRIDIUM DIFFICILE, NOT SPCF RECUR Status: Acute (2) Sepsis Code(s): A41.9 - SEPSIS, UNSPECIFIED ORGANISM Status: Acute Qualifiers: Sepsis acute organ dysfunction status: without acute organ dysfunction (3) End stage renal disease on dialysis Code(s): N18.6 - END STAGE RENAL DISEASE; Z99.2 - DEPENDENCE ON RENAL DIALYSIS Status: Chronic (4) HLD (hyperlipidemia) Code(s): E78.5 - HYPERLIPIDEMIA, UNSPECIFIED Status: Chronic Qualifiers: Hyperlipidemia type: unspecified Qualified Code(s): E78.5 - Hyperlipidemia , unspecified (5) Anemia in chronic kidney disease Code(s): N18.9 - CHRONIC KIDNEY DISEASE, UNSPECIFIED; D63.1 - ANEMIA IN CHRONIC KIDNEY DISEASE Status: Chronic Qualifiers: Chronic kidney disease stage: on chronic dialysis Qualified Code(s): N18.6 - End stage renal disease; D63.1 - Anemia in chronic kidney disease; Z99.2 - Dependence on renal dialysis (6) Diabetes mellitus Code(s): E11.9 - TYPE 2 DIABETES MELLITUS WITHOUT COMPLICATIONS Status: Chronic Qualifiers: Diabetes mellitus type: type 2 Diabetes mellitus longterm insulin use: without superintendent 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 Diabetes mellitus complication status: with kidney complications Diabetes mellitus complication detail: with chronic kidney disease Chronic kidney disease stage: on chronic dialysis Qualified Code(s) : E11.22 - Type 2 diabetes mellitus with diabetic chronic kidney disease; N18.6 - End stage renal disease; Z99.2 - Dependence on renal dialysis (7) Hypertension Code(s): I10 - ESSENTIAL (PRIMARY) HYPERTENSION Status: Chronic Qualifiers: Hypertension type: essential hypertension Qualified Code(s): I10 - Essential (primary) hypertension - Plan is on vanc po and iv flagyl coag -ve staph likely contaminant in her blood no extra fluid removal with HD today?, continue iv fluids continue asp, luis antonio has severe c.diff pancolitis, wbc is down to 21k today still has increased freq of diarrhea, will closely monitor replace potassium
[2020-01-11] MEDS: HumaLOG 300 UNITS/3 ML VIAL SC PRN (16:27)
[2020-01-11 20:18] LABS: Anion Gap 17 mmol/L (10-20); BUN (Urea Nitrogen) 14 mg/dL (9.8-20.1); Calc. Creatinine Clearance 19 mL/min (70-130); Calcium 7.6 mg/dL (7.8-10.44); Carbon Dioxide 18 mmol/L (23-31); Chloride 103 mmol/L (98-107); Estimated GFR-MDRD 15; Glucose 180 mg/dL (80-115); Potassium 4.2 mmol/L (3.5-5.1); Sodium 134 mmol/L (136-145)
--- NOTE | 2020-01-11 20:32 | PRG ---
DATE OF SERVICE: 01/11/2020 SUBJECTIVE: Ms. Chacon is still having frequent diarrhea, mainly when she lays down, although she is having less volume and she feels a little bit better. She is getting a regular diet. She does not like that. She would rather have more of a soft diet. OBJECTIVE: VITAL SIGNS: Temperature is 98.7, pulse 101, and blood pressure 139/63. GENERAL: She is alert and oriented. She is talking to family on the phone. She is in no distress. ABDOMEN: Soft, nontender. Bowel sounds are positive. LABORATORY DATA: White count is 21,000, down from 31,000 yesterday. Hemoglobin 7. Platelet count 196. She has 30% bands, 59% segs. INR is 1.2 on admission. Sodium 124, potassium 2.9, BUN and creatinine are 44 and 6.22. She will have potassium replaced today. ASSESSMENT: 1. Severe Clostridium difficile colitis, improving clinically. 2. Hypokalemia, replaced periodically. She is a dialysis patient. 3. Anemia, likely renal. She has had a significant workup for this in the past as noted in the admission H and P. 4. We will check Mag and phosphorus tomorrow with dialysis. This is probably being adequately managed with her dialysis bath. 5. We will change her diet back to a full liquid diet, BRANinoska stovall. Job ID: [id number]
[2020-01-11] MEDS: Rosuvastatin 20 MG TAB PO SCH (22:00)
[2020-01-12] MEDS: Vancomycin HCl 25 MG/ML Oral PO SCH ×4 (03:44→20:24)
[2020-01-12 06:28] LABS: Magnesium 1.7 mg/dL (1.6-2.6); Phosphorus 3.8 mg/dL (2.3-4.7)
[2020-01-12] MEDS: metroNIDAZOLE 500 MG in Premix Bag 1 BAG IVPB SCH ×3 (06:39→22:23)
[2020-01-12] MEDS: HumaLOG 300 UNITS/3 ML VIAL SC PRN ×2 (06:39→10:47)
[2020-01-12 07:02] LABS: Band 6 % (5-11); Eosinophils 1 % (0-10); Hemoglobin 6.7 g/dL (12.0-16.0); Lymphocytes 12 % (21-51); MDiff Complete? YES; Mean Corpuscular HGB CONC 31.6 g/dL (32.0-36.0); Mean Corpuscular Hemoglobin 26.5 pg (27.0-31.0); Mean Corpuscular Volume 83.6 fL (78.0-98.0); Mean Platelet Volume 9.9 fL (7.4-10.4); Monocytes 4 % (0-10); Neutrophil 77 % (42-75); Platelet Count 212 thou/uL (130-400); RBC Distribution Width 18.9 % (11.5-14.5); Red Blood Cell (RBC) Count 2.52 mill/uL (4.20-5.40); White Blood Cell (WBC) Count 12.8 thou/uL (4.8-10.8)
--- NOTE | 2020-01-12 09:09 | PRG ---
DATE OF SERVICE: 01/12/2020 SUBJECTIVE: Ms. Chacon is a 69-year-old black female with ESRD. We are following her up for her maintenance hemodialysis. She underwent hemodialysis yesterday without any difficulty. She was initially admitted for diarrhea secondary to C diff colitis. Clinically improving. Frequency of bowel movement has now decreased. Currently, on vancomycin and clindamycin. The patient voices no new complaints. She denies any chest pain or shortness of breath. PHYSICAL EXAMINATION: VITAL SIGNS: Blood pressure 149/66, heart rate 110, respiratory rate 18, temperature 98, and O2 saturation 98%. GENERAL: Awake, alert, comfortable, not in distress. SKIN: Adequate turgor. HEENT: Pale conjunctivae. Anicteric sclerae. No neck mass. No carotid bruits. No JVD. CHEST: No deformities. LUNGS: Clear breath sounds. HEART: Normal sinus rhythm. No murmurs. No gallops. No rubs. ABDOMEN: Globular, soft, nontender. No masses. EXTREMITIES: No edema. No deformities. MEDICATIONS: Medications of January 12, 2020, were reviewed. LABORATORY DATA: Laboratories of January 12, 2020: White count 12.8, hemoglobin 6.7. Sodium 134, potassium 4.2, chloride 103, carbon dioxide 18, BUN 14, creatinine 3.57, phosphorus 3.8, magnesium 1.7, and calcium 7.6. ASSESSMENT AND PLAN: 1. Anemia, p.r.n. blood transfusion. Consider transfusing 1 unit of packed RBC today. Continue weekly Epogen. 2. End-stage renal disease, stable. Continuing Wednesday, , and Wednesday dialysis. Tolerating treatment as well as the fluid removal. 3. Clostridium difficile colitis, clinically improving. Currently, on oral vancomycin and on metronidazole. Overall, agree with current management. Recheck CBC and basic metabolic panel in a.m. Job ID: [id number]
[2020-01-12] MEDS: Potassium Chloride 20 MEQ TAB PO SCH ×2 (10:30→17:51)
[2020-01-12] MEDS: Heparin 5,000 UNITS/ML VIAL SC SCH ×3 (10:31→20:24)
[2020-01-12] MEDS: Sodium Chloride 0.45% 1,000 ML IV SCH ×2 (10:31→20:24)
[2020-01-12] MEDS: Aspirin 81 mg Enteric Coated Tablet PO SCH (10:31)
--- NOTE | 2020-01-12 12:43 | PDOC.HOSPP ---
- Subjective Encounter Date: 01/12/20 Encounter Time: 11:00 Subjective: has diarrhea, no nausea or abd pain is eating better amb in the room - Objective Vital Signs & Weight: Vital Signs (12 hours) Temp Pulse Pulse Resp BP BP Pulse Ox 01/12/20 11:03 96.8 F L 84 20 144/66 H 01/12/20 10:40 96.2 F L 85 18 136/60 01/12/20 08:00 98.0 F 110 H 18 149/66 H 98 Weight Admit Weight 179 lb 12.8 oz Weight 179 lb 12.8 oz I&O: 01/11/20 01/12/20 01/13/20 06:59 06:59 06:59 Intake Total 1860 1075 1440 Balance 1860 1075 1440 Result Diagrams: 01/12/20 06:00 01/11/20 19:59 Additional Labs: Accuchecks 01/12/20 01/12/20 01/11/20 10:48 05:52 19:31 POC Glucose 159 H 160 H 192 H 01/11/20 01/11/20 15:51 13:04 POC Glucose 195 H 93 Hospitalist ROS - Medication Medications: Active Medications Generic Name Dose Route Start Last Admin Trade Name Freq PRN Reason Stop Dose Admin Acetaminophen 650 mg 01/07/20 13:49 01/09/20 21:10 Tylenol PO 650 mg Q4H PRN Administration Headache/Fever/Mild Pain (1-3) Aspirin 81 mg 01/08/20 09:00 01/12/20 10:31 Ecotrin PO 81 mg DAILY ORIANA Administration Epoetin Ronaldo-epbx 7,500 unit 01/11/20 09:15 01/11/20 14:52 Retacrit SC 7,500 unit Q7D ORIANA Administration Heparin Sodium (Porcine) 5,000 units 01/07/20 15:00 01/12/20 10:31 Heparin SC 5,000 units TID ORIANA Administration Sodium Chloride 1,000 mls @ 75 mls/hr 01/08/20 10:30 01/12/20 10:31 1/2 Normal Saline IV Not Given .[id number] ORIANA Metronidazole 500 mg/ Device 100 mls @ 100 mls/hr 01/08/20 22:00 01/12/20 06: 39 IVPB 100 mls Q8HR ORIANA Administration Insulin Human Lispro 0 units 01/07/20 13:57 01/12/20 10:47 Humalog SC 2 unit .MILD SLIDING SCALE PRN Administration Mild Correctional Scale Pantoprazole Sodium 40 mg 01/11/20 21:00 01/11/20 22:00 Protonix PO 40 mg 2100 ORIANA Administration Potassium Chloride 40 meq 01/10/20 17:00 01/12/20 10:30 K-Dur PO 40 meq BID-WM ORIANA Administration Rosuvastatin Calcium 40 mg 01/07/20 21:00 01/11/20 22:00 Crestor PO 40 mg HS ORIANA Administration Sodium Chloride 10 ml 01/07/20 21:00 01/12/20 11:17 Flush - Normal Saline IVF Not Given Q12HR ORIANA Vancomycin HCl 500 mg 01/08/20 21:00 01/12/20 10:31 First Vancomycin PO 500 mg 0300,0900,1500,2100 ORIANA Administration - Exam General Appearance: awake alert Eye: PERRL, anicteric sclera ENT: no oropharyngeal lesions, moist mucosa Neck: supple, no JVD Heart: RRR, no murmur Respiratory: no wheezes, no rales Gastrointestinal: soft, non-tender, non-distended, normal bowel sounds, no guarding, no rigidity Extremities: no cyanosis, no edema Neurological: cranial nerve grossly intact, no focal deficits Hosp A/P (1) C. difficile colitis Code(s): A04.72 - ENTEROCOLITIS D/T CLOSTRIDIUM DIFFICILE, NOT SPCF RECUR Status: Acute (2) Sepsis Code(s): A41.9 - SEPSIS, UNSPECIFIED ORGANISM Status: Acute Qualifiers: Sepsis acute organ dysfunction status: without acute organ dysfunction (3) End stage renal disease on dialysis Code(s): N18.6 - END STAGE RENAL DISEASE; Z99.2 - DEPENDENCE ON RENAL DIALYSIS Status: Chronic (4) HLD (hyperlipidemia) Code(s): E78.5 - HYPERLIPIDEMIA, UNSPECIFIED Status: Chronic Qualifiers: Hyperlipidemia type: unspecified Qualified Code(s): E78.5 - Hyperlipidemia , unspecified (5) Anemia in chronic kidney disease Code(s): N18.9 - CHRONIC KIDNEY DISEASE, UNSPECIFIED; D63.1 - ANEMIA IN CHRONIC KIDNEY DISEASE Status: Chronic Qualifiers: Chronic kidney disease stage: on chronic dialysis Qualified Code(s): N18.6 - End stage renal disease; D63.1 - Anemia in chronic kidney disease; Z99.2 - Dependence on renal dialysis (6) Diabetes mellitus Code(s): E11.9 - TYPE 2 DIABETES MELLITUS WITHOUT COMPLICATIONS Status: Chronic Qualifiers: Diabetes mellitus type: type 2 Diabetes mellitus correction insulin use: 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 Diabetes mellitus complication status: with kidney complications Diabetes mellitus complication detail: with chronic kidney disease Chronic kidney disease stage: on chronic dialysis Qualified Code(s) : E11.22 - Type 2 diabetes mellitus with diabetic chronic kidney disease; N18.6 - End stage renal disease; Z99.2 - Dependence on renal dialysis (7) Hypertension Code(s): I10 - ESSENTIAL (PRIMARY) HYPERTENSION Status: Chronic Qualifiers: Hypertension type: essential hypertension Qualified Code(s): I10 - Essential (primary) hypertension - Plan is on vanc po and iv flagyl coag -ve staph likely contaminant in her blood Had HD yesterday, continue iv fluids continue asp, luis antonio has severe c.diff pancolitis, wbc is down to 12k today still has increased freq of diarrhea, will closely monitor replace potassium is receiving 1 u prbc today hemostable
--- NOTE | 2020-01-12 16:30 | PRG ---
DATE OF SERVICE: 01/12/2020 SUBJECTIVE: Ms. Chacon is tolerating bland diet, full liquid. She is having no cramping, but still having diarrhea. OBJECTIVE: VITAL SIGNS: Pulse 110, temperature 96, blood pressure 144/66. ABDOMEN: Soft and nontender. LABORATORY DATA: White count 12,000, hemoglobin 6.7. She had a unit of blood today. Platelet count 211. No electrolytes done today. Mag and phosphorus are normal at 1.7 and 3.8. ASSESSMENT: Severe Clostridium difficile colitis, improving. RECOMMENDATIONS: I will add a probiotic to her therapy regimen and a dose of Questran daily to see if it helps her diarrhea. Job ID: [id number]
[2020-01-12] MEDS ORDERED: Saccharomyces boulardii 250 MG CAP PO SCH (17:30)
[2020-01-12] MEDS: Rosuvastatin 20 MG TAB PO SCH (20:23)
[2020-01-12] MEDS: Cholestyramine/Aspartame 4 gm Packet PO SCH (22:22)
[2020-01-13] MEDS: Vancomycin HCl 25 MG/ML Oral PO SCH ×4 (01:55→19:07)
[2020-01-13] MEDS: metroNIDAZOLE 500 MG in Premix Bag 1 BAG IVPB SCH ×3 (04:51→21:03)
[2020-01-13 05:01] LABS: Anion Gap 14 mmol/L (10-20); BUN (Urea Nitrogen) 14 mg/dL (9.8-20.1); Calc. Creatinine Clearance 14 mL/min (70-130); Calcium 7.4 mg/dL (7.8-10.44); Carbon Dioxide 16 mmol/L (23-31); Chloride 106 mmol/L (98-107); Estimated GFR-MDRD 11; Glucose 104 mg/dL (80-115); Potassium 3.4 mmol/L (3.5-5.1); Sodium 133 mmol/L (136-145)
[2020-01-13 05:09] LABS: Anisocytosis SLIGHT = 6-15 cells (100X) (0-5/hpf); Band 6 % (5-11); Eosinophils 2 % (0-10); Hemoglobin 7.7 g/dL (12.0-16.0); Hypochromia SLIGHT = 6-15 cells (100X) (0-5/hpf); Lymphocytes 14 % (21-51); MDiff Complete? YES; Mean Corpuscular HGB CONC 30.7 g/dL (32.0-36.0); Mean Corpuscular Volume 84.7 fL (78.0-98.0); Mean Platelet Volume 9.8 fL (7.4-10.4); Monocytes 7 % (0-10); Neutrophil 71 % (42-75); Platelet Count 237 thou/uL (130-400); Platelet Morphology Comment Appears Adequate; Polychromasia SLIGHT = 2-3 cells (100X) (0-2/hpf); RBC Distribution Width 18.5 % (11.5-14.5); Red Blood Cell (RBC) Count 2.98 mill/uL (4.20-5.40); White Blood Cell (WBC) Count 12.9 thou/uL (4.8-10.8)
[2020-01-13] MEDS: Potassium Chloride 20 MEQ TAB PO SCH ×2 (08:36→16:58)
[2020-01-13] MEDS: Heparin 5,000 UNITS/ML VIAL SC SCH ×3 (08:36→19:26)
[2020-01-13] MEDS: Aspirin 81 mg Enteric Coated Tablet PO SCH (08:36)
[2020-01-13] MEDS: Cholestyramine/Aspartame 4 gm Packet PO SCH ×2 (08:37→21:03)
[2020-01-13] MEDS: Saccharomyces boulardii 250 MG CAP PO SCH (08:37)
--- NOTE | 2020-01-13 10:10 | PRG ---
DATE OF SERVICE: 01/13/2020 SUBJECTIVE: Ms. Chacon is a 69-year-old black female with ESRD and on maintenance hemodialysis. She is currently undergoing dialysis today. Fluid removal is being done as tolerated by the patient. She was initially admitted for diarrhea, was found to have C diff colitis. Diarrhea is slowly improving. No complaints of chest pain or shortness of breath. OBJECTIVE: VITAL SIGNS: Blood pressure 195/82, heart rate 95, respiratory rate 18, temperature 97.6, O2 saturation 100%. GENERAL: Noted to be awake, alert, comfortable, not in overt distress. SKIN: Adequate turgor. HEENT: She has slightly pale conjunctivae. Anicteric sclerae. No neck mass. No carotid bruits. No JVD. CHEST: No deformities. LUNGS: Clear breath sounds. HEART: Normal sinus rhythm. No murmur. No gallops. No rubs. ABDOMEN: Globular, soft, nontender. No masses. EXTREMITIES: No edema. No deformities. MEDICATIONS: Medications of January 13, 2020, were reviewed. LABORATORY DATA: Laboratories of January 13, 2020, white count 12.9, hemoglobin 7.7, sodium 133, potassium 3.4, chloride 106, carbon dioxide 16, BUN 14, creatinine 4.81, calcium 7.4. ASSESSMENT AND PLAN: 1. Clostridium difficile colitis, clinically improving. The patient is currently on oral vancomycin and on metronidazole. GI following. 2. Anemia, continuing weekly Epogen 7500 units subcu every week. 3. The patient is also status post blood transfusion. 4. End-stage renal disease, stable. We will continue current Wednesday, , and Wednesday hemodialysis regimen. Again, fluid removal only as tolerated by the patient. 5. We will recheck basic metabolic panel and CBC in a.m. Job ID: [id number]
--- NOTE | 2020-01-13 12:13 | PDOC.HOSPP ---
- Subjective Encounter Date: 01/13/20 Encounter Time: 10:00 Subjective: is getting HD now no nausea, is tolerating oral diet still has loose stools around 10-12 last 24hrs - Objective Vital Signs & Weight: Vital Signs (12 hours) Temp Pulse Resp BP Pulse Ox 01/13/20 08:26 97.6 F 95 18 195/82 H 100 Weight Admit Weight 179 lb 12.8 oz Weight 179 lb 12.8 oz I&O: 01/12/20 01/13/20 01/14/20 06:59 06:59 06:59 Intake Total 1075 4830 Balance 1075 4830 Result Diagrams: 01/13/20 04:18 01/13/20 04:18 Additional Labs: Accuchecks 01/12/20 01/12/20 20:08 17:58 POC Glucose 185 H 137 H Hospitalist ROS - Medication Medications: Active Medications Generic Name Dose Route Start Last Admin Trade Name Freq PRN Reason Stop Dose Admin Acetaminophen 650 mg 01/07/20 13:49 01/09/20 21:10 Tylenol PO 650 mg Q4H PRN Administration Headache/Fever/Mild Pain (1-3) Aspirin 81 mg 01/08/20 09:00 01/13/20 08:36 Ecotrin PO 81 mg DAILY ORIANA Administration Cholestyramine Resin 1 gm 01/12/20 22:00 01/13/20 08:37 Questran Light PO 1 gm 1000,2200 ORIANA Administration Epoetin Ronaldo-epbx 7,500 unit 01/11/20 09:15 01/11/20 14:52 Retacrit SC 7,500 unit Q7D ORIANA Administration Heparin Sodium (Porcine) 5,000 units 01/07/20 15:00 01/13/20 08:36 Heparin SC 5,000 units TID ORIANA Administration Sodium Chloride 1,000 mls @ 75 mls/hr 01/08/20 10:30 01/12/20 20:24 1/2 Normal Saline IV 1,000 mls .[id number] ORIANA Administration Metronidazole 500 mg/ Device 100 mls @ 100 mls/hr 01/08/20 22:00 01/13/20 04: 51 IVPB 100 mls Q8HR ORIANA Administration Insulin Human Lispro 0 units 01/07/20 13:57 01/12/20 10:47 Humalog SC 2 unit .MILD SLIDING SCALE PRN Administration Mild Correctional Scale Pantoprazole Sodium 40 mg 01/11/20 21:00 01/12/20 20:23 Protonix PO 40 mg 2100 ORIANA Administration Potassium Chloride 40 meq 01/10/20 17:00 01/13/20 08:36 K-Dur PO 40 meq BID-WM ORIANA Administration Rosuvastatin Calcium 40 mg 01/07/20 21:00 01/12/20 20:23 Crestor PO 40 mg HS ORIANA Administration Saccharomyces Boulardii 250 mg 01/13/20 09:00 01/13/20 08:37 Florastor PO 250 mg DAILY ORIANA Administration Sodium Chloride 10 ml 01/07/20 21:00 01/13/20 08:37 Flush - Normal Saline IVF Not Given Q12HR ORIANA Vancomycin HCl 500 mg 01/08/20 21:00 01/13/20 08:36 First Vancomycin PO 500 mg 0300,0900,1500,2100 ORIANA Administration - Exam General Appearance: awake alert Eye: PERRL, anicteric sclera ENT: no oropharyngeal lesions, dry oral mucosa Neck: supple, no JVD Heart: RRR, no murmur Respiratory: no wheezes, no rales Gastrointestinal: soft, non-tender, non-distended, normal bowel sounds Extremities: no cyanosis, no edema Neurological: cranial nerve grossly intact, no focal deficits Hosp A/P (1) C. difficile colitis Code(s): A04.72 - ENTEROCOLITIS D/T CLOSTRIDIUM DIFFICILE, NOT SPCF RECUR Status: Acute (2) Sepsis Code(s): A41.9 - SEPSIS, UNSPECIFIED ORGANISM Status: Acute Qualifiers: Sepsis acute organ dysfunction status: without acute organ dysfunction (3) End stage renal disease on dialysis Code(s): N18.6 - END STAGE RENAL DISEASE; Z99.2 - DEPENDENCE ON RENAL DIALYSIS Status: Chronic (4) HLD (hyperlipidemia) Code(s): E78.5 - HYPERLIPIDEMIA, UNSPECIFIED Status: Chronic Qualifiers: Hyperlipidemia type: unspecified Qualified Code(s): E78.5 - Hyperlipidemia , unspecified (5) Anemia in chronic kidney disease Code(s): N18.9 - CHRONIC KIDNEY DISEASE, UNSPECIFIED; D63.1 - ANEMIA IN CHRONIC KIDNEY DISEASE Status: Chronic Qualifiers: Chronic kidney disease stage: on chronic dialysis Qualified Code(s): N18.6 - End stage renal disease; D63.1 - Anemia in chronic kidney disease; Z99.2 - Dependence on renal dialysis (6) Diabetes mellitus Code(s): E11.9 - TYPE 2 DIABETES MELLITUS WITHOUT COMPLICATIONS Status: Chronic Qualifiers: Diabetes mellitus type: type 2 Diabetes mellitus nursing home insulin use: without nursing home use Diabetes mellitus complication status: with kidney complications Diabetes mellitus complication detail: with chronic kidney disease Chronic kidney disease stage: on chronic dialysis Qualified Code(s) : E11.22 - Type 2 diabetes mellitus with diabetic chronic kidney disease; N18.6 - End stage renal disease; Z99.2 - Dependence on renal dialysis (7) Hypertension Code(s): I10 - ESSENTIAL (PRIMARY) HYPERTENSION Status: Chronic Qualifiers: Hypertension type: essential hypertension Qualified Code(s): I10 - Essential (primary) hypertension - Plan is on vanc po and iv flagyl, questran coag -ve staph likely contaminant in her blood getting HD now, continue iv fluids continue asp, crestor has severe c.diff pancolitis, wbc is normal this am still has increased freq of diarrhea, will closely monitor replace potassium received 1 u prbc 01/12/2020 hemostable
[2020-01-13] MEDS: Sodium Chloride 0.45% 1,000 ML IV SCH ×2 (14:55→16:59)
--- NOTE | 2020-01-13 16:13 | PRG ---
DATE OF SERVICE: 01/13/2020 SUBJECTIVE: Ms. Chacon reports she feels better, but she continues to have bowel medications up to 10 times per day. Nurse states that the patient told her dialysis, but the dialysis nurse stated she only had one. The patient states sometimes she just does not know when she is going. She has no cramps or bleeding. OBJECTIVE: VITAL SIGNS: Afebrile for 48 hours. T-max 98.6, pulse 95, blood pressure 185/82. ABDOMEN: Soft, nontender. She is up walking around the room. LABORATORY DATA: White count 12.9, hemoglobin 7.7, and platelet count 237. ASSESSMENT: Severe Clostridium difficile colitis, improving. RECOMMENDATIONS: 1. Increase the cholestyramine to 4 g b.i.d. to help with diarrhea. 2. Advance diet as tolerated, lactose free. Job ID: [id number]
[2020-01-13] MEDS: HumaLOG 300 UNITS/3 ML VIAL SC PRN (16:58)
[2020-01-13] MEDS: Rosuvastatin 20 MG TAB PO SCH (19:07)
[2020-01-14] MEDS: Vancomycin HCl 25 MG/ML Oral PO SCH ×4 (03:26→22:49)
[2020-01-14 04:27] LABS: Anion Gap 13 mmol/L (10-20); BUN (Urea Nitrogen) 7 mg/dL (9.8-20.1); Calc. Creatinine Clearance 20 mL/min (70-130); Calcium 7.5 mg/dL (7.8-10.44); Carbon Dioxide 20 mmol/L (23-31); Chloride 105 mmol/L (98-107); Estimated GFR-MDRD 16; Glucose 108 mg/dL (80-115); Potassium 3.3 mmol/L (3.5-5.1); Sodium 135 mmol/L (136-145)
[2020-01-14 04:50] LABS: Anisocytosis SLIGHT = 6-15 cells (100X) (0-5/hpf); Band 13 % (5-11); Eosinophils 1 % (0-10); Hemoglobin 8.7 g/dL (12.0-16.0); Lymphocytes 12 % (21-51); MDiff Complete? YES; Mean Corpuscular Hemoglobin 27.1 pg (27.0-31.0); Mean Corpuscular Volume 84.7 fL (78.0-98.0); Mean Platelet Volume 9.8 fL (7.4-10.4); Monocytes 10 % (0-10); Neutrophil 64 % (42-75); Platelet Count 257 thou/uL (130-400); Platelet Morphology Comment Appears Adequate; Polychromasia SLIGHT = 2-3 cells (100X) (0-2/hpf); RBC Distribution Width 18.7 % (11.5-14.5); White Blood Cell (WBC) Count 14.6 thou/uL (4.8-10.8)
[2020-01-14] MEDS: metroNIDAZOLE 500 MG in Premix Bag 1 BAG IVPB SCH ×3 (05:34→22:48)
[2020-01-14] MEDS: Potassium Chloride 20 MEQ TAB PO SCH ×2 (08:31→16:47)
[2020-01-14] MEDS: Heparin 5,000 UNITS/ML VIAL SC SCH ×3 (08:32→22:50)
[2020-01-14] MEDS: Aspirin 81 mg Enteric Coated Tablet PO SCH (08:32)
[2020-01-14] MEDS: Saccharomyces boulardii 250 MG CAP PO SCH (08:33)
--- NOTE | 2020-01-14 10:13 | PRG ---
DATE OF SERVICE: 01/14/2020 SUBJECTIVE: Ms. Chacon is a 69-year-old black female with known history of ESRD, was admitted for Clostridium difficile colitis. Diarrhea is slowly improving. Currently, on metronidazole as well as on oral vancomycin. No other complaints today. No chest pain or shortness of breath. She did underwent hemodialysis yesterday without any difficulty. OBJECTIVE: VITAL SIGNS: Blood pressure is noted at 173/79, heart rate 100, respiratory rate 20, temperature 98.4, O2 saturation 100%. GENERAL: The patient is awake, alert, comfortable, not in distress. SKIN: Adequate turgor. HEENT: Slightly pale conjunctivae. Anicteric sclerae. No neck mass. No carotid bruits. No JVD. CHEST: No deformities. LUNGS: Clear breath sounds. No wheezing. No crackles. HEART: Normal sinus rhythm. No murmur. No gallops. No rubs. ABDOMEN: Globular, soft, nontender. No masses. EXTREMITIES: No edema. No deformities. MEDICATIONS: Medications of January 14, 2020 was reviewed. LABORATORY DATA: Laboratories of January 14, 2020; white count 14.6, hemoglobin 8.7. Sodium 135, potassium 3.3, chloride 105, carbon dioxide 20, BUN 7, creatinine 3.47, glucose 108, calcium 7.5. ASSESSMENT AND PLAN: 1. End-stage renal disease, stable, tolerating current hemodialysis regimen. Underwent dialysis yesterday without difficulty. Fluid removal was done and she tolerated this. 2. Clostridium difficile colitis/diarrhea, on metronidazole as well as vancomycin, slowly improving. 3. Anemia. The patient is currently on weekly Epogen. She has received p.r.n. blood transfusion. Overall, agree with current management. We will again recheck basic metabolic panel and CBC in a.m. Job ID: [id number]
[2020-01-14] MEDS: Cholestyramine/Aspartame 4 gm Packet PO SCH ×2 (10:19→23:51)
[2020-01-14] MEDS: HumaLOG 300 UNITS/3 ML VIAL SC PRN ×2 (11:41→16:46)
[2020-01-14] MEDS: Sodium Chloride 0.45% 1,000 ML IV SCH (11:43)
--- NOTE | 2020-01-14 12:46 | PDOC.HOSPP ---
- Subjective Encounter Date: 01/14/20 Encounter Time: 11:00 Subjective: feels better, is tolerating oral diet still has loose watery stools but the freq is slowly getting better - Objective Vital Signs & Weight: Vital Signs (12 hours) Temp Pulse Resp BP Pulse Ox 01/14/20 08:00 98.4 F 100 20 173/79 H 100 Weight Admit Weight 179 lb 12.8 oz Weight 179 lb 12.8 oz I&O: 01/13/20 01/14/20 01/15/20 06:59 06:59 06:59 Intake Total 4830 2900 Balance 4830 2900 Result Diagrams: 01/14/20 03:37 01/14/20 03:37 Additional Labs: Accuchecks 01/14/20 01/13/20 01/13/20 11:43 20:44 15:59 POC Glucose 260 H 110 169 H Hospitalist ROS - Medication Medications: Active Medications Generic Name Dose Route Start Last Admin Trade Name Freq PRN Reason Stop Dose Admin Acetaminophen 650 mg 01/07/20 13:49 01/09/20 21:10 Tylenol PO 650 mg Q4H PRN Administration Headache/Fever/Mild Pain (1-3) Aspirin 81 mg 01/08/20 09:00 01/14/20 08:32 Ecotrin PO 81 mg DAILY ORIANA Administration Cholestyramine Resin 4 gm 01/13/20 22:00 01/14/20 10:19 Questran Light PO 4 gm 1000,2200 ORIANA Administration Epoetin Ronaldo-epbx 7,500 unit 01/11/20 09:15 01/11/20 14:52 Retacrit SC 7,500 unit Q7D ORIANA Administration Heparin Sodium (Porcine) 5,000 units 01/07/20 15:00 01/14/20 08:32 Heparin SC 5,000 units TID ORIANA Administration Sodium Chloride 1,000 mls @ 75 mls/hr 01/08/20 10:30 01/14/20 11:43 1/2 Normal Saline IV 1,000 mls .[id number] ORIANA Administration Metronidazole 500 mg/ Device 100 mls @ 100 mls/hr 01/08/20 22:00 01/14/20 05: 34 IVPB 100 mls Q8HR ORIANA Administration Insulin Human Lispro 0 units 01/07/20 13:57 01/14/20 11:41 Humalog SC 4 unit .MILD SLIDING SCALE PRN Administration Mild Correctional Scale Pantoprazole Sodium 40 mg 01/11/20 21:00 01/13/20 19:08 Protonix PO 40 mg 2100 ORIANA Administration Potassium Chloride 40 meq 01/10/20 17:00 01/14/20 08:31 K-Dur PO 40 meq BID-WM ORIANA Administration Rosuvastatin Calcium 40 mg 01/07/20 21:00 01/13/20 19:07 Crestor PO 40 mg HS ORIANA Administration Saccharomyces Boulardii 250 mg 01/13/20 09:00 01/14/20 08:33 Florastor PO 250 mg DAILY ORIANA Administration Sodium Chloride 10 ml 01/07/20 21:00 01/14/20 08:34 Flush - Normal Saline IVF Not Given Q12HR ORIANA Vancomycin HCl 500 mg 01/08/20 21:00 01/14/20 08:34 First Vancomycin PO 500 mg 0300,0900,1500,2100 ORIANA Administration - Exam General Appearance: awake alert Eye: PERRL, anicteric sclera ENT: no oropharyngeal lesions, moist mucosa Neck: supple, no JVD Heart: RRR, no murmur Respiratory: no wheezes, no rales Gastrointestinal: soft, non-tender, non-distended, normal bowel sounds Extremities: no cyanosis, no edema Neurological: cranial nerve grossly intact, no focal deficits Psychiatric: normal affect, A&O x 3 Hosp A/P (1) C. difficile colitis Code(s): A04.72 - ENTEROCOLITIS D/T CLOSTRIDIUM DIFFICILE, NOT SPCF RECUR Status: Acute (2) Sepsis Code(s): A41.9 - SEPSIS, UNSPECIFIED ORGANISM Status: Acute Qualifiers: Sepsis acute organ dysfunction status: without acute organ dysfunction (3) End stage renal disease on dialysis Code(s): N18.6 - END STAGE RENAL DISEASE; Z99.2 - DEPENDENCE ON RENAL DIALYSIS Status: Chronic (4) HLD (hyperlipidemia) Code(s): E78.5 - HYPERLIPIDEMIA, UNSPECIFIED Status: Chronic Qualifiers: Hyperlipidemia type: unspecified Qualified Code(s): E78.5 - Hyperlipidemia , unspecified (5) Anemia in chronic kidney disease Code(s): N18.9 - CHRONIC KIDNEY DISEASE, UNSPECIFIED; D63.1 - ANEMIA IN CHRONIC KIDNEY DISEASE Status: Chronic Qualifiers: Chronic kidney disease stage: on chronic dialysis Qualified Code(s): N18.6 - End stage renal disease; D63.1 - Anemia in chronic kidney disease; Z99.2 - Dependence on renal dialysis (6) Diabetes mellitus Code(s): E11.9 - TYPE 2 DIABETES MELLITUS WITHOUT COMPLICATIONS Status: Chronic Qualifiers: Diabetes mellitus type: type 2 Diabetes mellitus supervisor intermediates insulin use: without mcc use Diabetes mellitus complication status: with kidney complications Diabetes mellitus complication detail: with chronic kidney disease Chronic kidney disease stage: on chronic dialysis Qualified Code(s) : E11.22 - Type 2 diabetes mellitus with diabetic chronic kidney disease; N18.6 - End stage renal disease; Z99.2 - Dependence on renal dialysis (7) Hypertension Code(s): I10 - ESSENTIAL (PRIMARY) HYPERTENSION Status: Chronic Qualifiers: Hypertension type: essential hypertension Qualified Code(s): I10 - Essential (primary) hypertension - Plan is on vanc po and iv flagyl, questran bid coag -ve staph likely contaminant in her blood Had HD yesterday, continue iv fluids continue asp, luis antonio has severe c.diff pancolitis, slowly resolving still has increased freq of diarrhea, will closely monitor replace potassium received 1 u prbc 01/12/2020 hemostable
--- NOTE | 2020-01-14 13:03 | PRG ---
DATE OF SERVICE: 01/14/2020 SUBJECTIVE: Ms. Artis notes less diarrhea. She had five yesterday and only one today so far. OBJECTIVE: VITAL SIGNS: Temperature is 98, pulse 87 to 100, blood pressure 173/79. ABDOMEN: Soft, nontender. There is no rebound, guarding. She is alert and oriented to person, place, and time. LABORATORY DATA: White count 14.6, hemoglobin is 8.7, platelet count 257. 30% bands down from 30% on admission down from 72% on 01/09. ASSESSMENT: Severe Clostridium difficile colitis, improving. RECOMMENDATION: Continue present management. Advance diet as tolerated. Job ID: [id number]
[2020-01-14] MEDS: Rosuvastatin 20 MG TAB PO SCH (22:49)
[2020-01-15] MEDS: Sodium Chloride 0.45% 1,000 ML IV SCH ×2 (03:46→07:12)
[2020-01-15] MEDS: Vancomycin HCl 25 MG/ML Oral PO SCH ×4 (03:46→20:43)
[2020-01-15] MEDS ORDERED: EPOETIN ALFA-EPBX (NON-ESRD) 10,000 UNIT/ML VIAL ONE (04:00)
[2020-01-15 04:59] LABS: Anion Gap 11 mmol/L (10-20); BUN (Urea Nitrogen) 10 mg/dL (9.8-20.1); Calc. Creatinine Clearance 17 mL/min (70-130); Calcium 7.4 mg/dL (7.8-10.44); Carbon Dioxide 18 mmol/L (23-31); Chloride 106 mmol/L (98-107); Estimated GFR-MDRD 13; Glucose 191 mg/dL (80-115); Potassium 3.4 mmol/L (3.5-5.1); Sodium 132 mmol/L (136-145)
[2020-01-15] MEDS: metroNIDAZOLE 500 MG in Premix Bag 1 BAG IVPB SCH (04:59)
[2020-01-15 05:21] LABS: Anisocytosis SLIGHT = 6-15 cells (100X) (0-5/hpf); Band 5 % (5-11); Eosinophils 2 % (0-10); Hemoglobin 8.8 g/dL (12.0-16.0); Hypochromia SLIGHT = 6-15 cells (100X) (0-5/hpf); Lymphocytes 12 % (21-51); MDiff Complete? YES; Mean Corpuscular HGB CONC 30.8 g/dL (32.0-36.0); Mean Corpuscular Hemoglobin 26.4 pg (27.0-31.0); Mean Corpuscular Volume 85.9 fL (78.0-98.0); Mean Platelet Volume 9.7 fL (7.4-10.4); Metamyelocyte 1 % (0-0); Monocytes 12 % (0-10); Myelocyte 2 % (0-0); Neutrophil 66 % (42-75); Platelet Count 275 thou/uL (130-400); Polychromasia SLIGHT = 2-3 cells (100X) (0-2/hpf); RBC Distribution Width 19.1 % (11.5-14.5); Red Blood Cell (RBC) Count 3.34 mill/uL (4.20-5.40); White Blood Cell (WBC) Count 17.5 thou/uL (4.8-10.8)
[2020-01-15] MEDS: HumaLOG 300 UNITS/3 ML VIAL SC PRN ×3 (05:58→17:09)
[2020-01-15] MEDS: Potassium Chloride 20 MEQ TAB PO SCH ×2 (08:04→17:08)
[2020-01-15] MEDS: Aspirin 81 mg Enteric Coated Tablet PO SCH (08:05)
[2020-01-15] MEDS: Heparin 5,000 UNITS/ML VIAL SC SCH ×3 (08:05→20:43)
[2020-01-15] MEDS: Saccharomyces boulardii 250 MG CAP PO SCH (08:05)
[2020-01-15] MEDS: Cholestyramine/Aspartame 4 gm Packet PO SCH ×2 (09:32→20:49)
--- NOTE | 2020-01-15 09:39 | PRG ---
DATE OF SERVICE: 01/15/2020 SERVICE: Renal Medicine. SUBJECTIVE: Ms. Chacon is a 69-year-old black female with ESRD and followed up for her maintenance hemodialysis. She was initially admitted for diarrhea secondary to C difficile colitis. She has been started on metronidazole as well as oral vancomycin. Diarrhea is much improved. Her stools are forming. However, the concern is that her white count is still elevated significantly. Most recent white count is 17.5. No other complaints today. No chest pain or shortness of breath. OBJECTIVE: VITAL SIGNS: Blood pressure 155/70, heart rate 96, respiratory rate 18, temperature 98.5, and O2 saturation 98% on room air. GENERAL: Awake, alert, comfortable, not in overt distress. SKIN: Adequate turgor. HEENT: She has slightly pale conjunctivae. Anicteric sclerae. NECK: No neck mass. No carotid bruits. No JVD. CHEST: No deformities. LUNGS: Clear breath sounds. HEART: Normal sinus rhythm. No murmur. No gallops. No rubs. ABDOMEN: Globular, soft, and nontender. No masses. EXTREMITIES: No edema. MEDICATIONS: Medications of January 15, 2020, were reviewed. LABORATORY DATA: Laboratories of January 15, 2020; white count 17.5, hemoglobin 8.8. Sodium 132, potassium 3.4, chloride 106, carbon dioxide 18, BUN 10, creatinine 4.17, glucose 191, and calcium 7.4. ASSESSMENT AND PLAN: 1. End-stage renal disease, stable. We will continue current Wednesday, , and Wednesday dialysis. No indication for an emergent hemodialysis today. The patient is not in volume overload and potassium is not elevated. 2. Clostridium difficile colitis, currently on metronidazole and oral vancomycin. 3. Anemia, on weekly Epogen regimen. 4. Leukocytosis. Blood culture x2 will be done today. Job ID: [id number]
--- NOTE | 2020-01-15 11:20 | PRG ---
DATE OF SERVICE: 01/15/2020 SUBJECTIVE: Ms. Chacon is doing much better. She is starting to have formed stool. She has no pain. She has no bleeding. She has no fever. Her white count has gone up a bit. OBJECTIVE: VITAL SIGNS: Temperature 98, pulse 96, blood pressure is 155/70. LUNGS: Clear. HEART: . ABDOMEN: Soft. It is slightly protuberant, nontender. No shifting dullness or fluid wave. Bowel sounds are positive. LABORATORY DATA: White count 17.5, hemoglobin 8.8, and platelet count 275. Sodium 132, potassium 3.4, chloride 106, bicarb 18, BUN and creatinine . ASSESSMENT: Severe Clostridium difficile colitis. She remains on Flagyl IV and vancomycin p.o. This is hospital day #6. RECOMMENDATIONS: 1. We will get a KUB just to make sure she is not developing any toxic megacolon as she is on Questran now. 2. We would continue IV Flagyl and p.o. vancomycin for a couple more days and then she will need to remain on p.o. vancomycin for a total of 14 days at q.i.d. dosing and then taper to t.i.d. for a week, b.i.d. for a week, daily for a week, then every other day for 7 doses and every third day for 7 doses and be on a probiotic for 3 months. Job ID: [id number]
--- NOTE | 2020-01-15 11:39 | PDOC.HOSPP ---
- Subjective Encounter Date: 01/15/20 Encounter Time: 11:00 Subjective: feels better had around 5 stools yesterday and one this am mild abd colic, no nausea, is tolerating oral diet is amb in room from commode to bed - Objective Vital Signs & Weight: Vital Signs (12 hours) Temp Pulse Resp BP BP Pulse Ox 01/15/20 07:37 98 01/15/20 07:12 98.5 F 96 18 155/70 H 98 01/15/20 03:37 163/75 H 01/15/20 00:00 173/71 H Weight Admit Weight 179 lb 12.8 oz Weight 179 lb 12.8 oz I&O: 01/14/20 01/15/20 01/16/20 06:59 06:59 06:59 Intake Total 2900 2635 Balance 2900 2635 Result Diagrams: 01/15/20 03:39 01/15/20 03:39 Additional Labs: Accuchecks 01/15/20 01/14/20 01/14/20 06:01 20:44 16:51 POC Glucose 164 H 160 H 209 H 01/14/20 11:43 POC Glucose 260 H Hospitalist ROS - Medication Medications: Active Medications Generic Name Dose Route Start Last Admin Trade Name Freq PRN Reason Stop Dose Admin Acetaminophen 650 mg 01/07/20 13:49 01/09/20 21:10 Tylenol PO 650 mg Q4H PRN Administration Headache/Fever/Mild Pain (1-3) Aspirin 81 mg 01/08/20 09:00 01/15/20 08:05 Ecotrin PO 81 mg DAILY ORIANA Administration Cholestyramine Resin 4 gm 01/13/20 22:00 01/15/20 09:32 Questran Light PO 4 gm 1000,2200 ORIANA Administration Epoetin Ronaldo-epbx 7,500 unit 01/11/20 09:15 01/11/20 14:52 Retacrit SC 7,500 unit Q7D ORIANA Administration Heparin Sodium (Porcine) 5,000 units 01/07/20 15:00 01/15/20 08:05 Heparin SC 5,000 units TID ORIANA Administration Sodium Chloride 1,000 mls @ 75 mls/hr 01/08/20 10:30 01/15/20 07:12 1/2 Normal Saline IV 1,000 mls .[id number] ORIANA Administration Insulin Human Lispro 0 units 01/07/20 13:57 01/15/20 05:58 Humalog SC 2 unit .MILD SLIDING SCALE PRN Administration Mild Correctional Scale Pantoprazole Sodium 40 mg 01/11/20 21:00 01/14/20 22:49 Protonix PO 40 mg 2100 ORIANA Administration Potassium Chloride 40 meq 01/10/20 17:00 01/15/20 08:04 K-Dur PO 40 meq BID-WM ORIANA Administration Rosuvastatin Calcium 40 mg 01/07/20 21:00 01/14/20 22:49 Crestor PO 40 mg HS ORIANA Administration Saccharomyces Boulardii 250 mg 01/13/20 09:00 01/15/20 08:05 Florastor PO 250 mg DAILY ORIANA Administration Sodium Chloride 10 ml 01/07/20 21:00 01/15/20 08:06 Flush - Normal Saline IVF Not Given Q12HR ORIANA Vancomycin HCl 500 mg 01/08/20 21:00 01/15/20 08:06 First Vancomycin PO 500 mg 0300,0900,1500,2100 ORIANA Administration - Exam General Appearance: awake alert Eye: PERRL, anicteric sclera ENT: no oropharyngeal lesions, moist mucosa Neck: supple, no JVD Heart: RRR, no murmur Respiratory: no wheezes, no rales Gastrointestinal: soft, non-distended, normal bowel sounds, no guarding, no rigidity Extremities: no cyanosis, no edema Neurological: cranial nerve grossly intact, no focal deficits Psychiatric: normal affect, A&O x 3 Hosp A/P (1) C. difficile colitis Code(s): A04.72 - ENTEROCOLITIS D/T CLOSTRIDIUM DIFFICILE, NOT SPCF RECUR Status: Acute (2) Sepsis Code(s): A41.9 - SEPSIS, UNSPECIFIED ORGANISM Status: Acute Qualifiers: Sepsis acute organ dysfunction status: without acute organ dysfunction (3) End stage renal disease on dialysis Code(s): N18.6 - END STAGE RENAL DISEASE; Z99.2 - DEPENDENCE ON RENAL DIALYSIS Status: Chronic (4) HLD (hyperlipidemia) Code(s): E78.5 - HYPERLIPIDEMIA, UNSPECIFIED Status: Chronic Qualifiers: Hyperlipidemia type: unspecified Qualified Code(s): E78.5 - Hyperlipidemia , unspecified (5) Anemia in chronic kidney disease Code(s): N18.9 - CHRONIC KIDNEY DISEASE, UNSPECIFIED; D63.1 - ANEMIA IN CHRONIC KIDNEY DISEASE Status: Chronic Qualifiers: Chronic kidney disease stage: on chronic dialysis Qualified Code(s): N18.6 - End stage renal disease; D63.1 - Anemia in chronic kidney disease; Z99.2 - Dependence on renal dialysis (6) Diabetes mellitus Code(s): E11.9 - TYPE 2 DIABETES MELLITUS WITHOUT COMPLICATIONS Status: Chronic Qualifiers: Diabetes mellitus type: type 2 Diabetes mellitus penitentiary insulin use: without remote computer terminal operator use Diabetes mellitus complication status: with kidney complications Diabetes mellitus complication detail: with chronic kidney disease Chronic kidney disease stage: on chronic dialysis Qualified Code(s) : E11.22 - Type 2 diabetes mellitus with diabetic chronic kidney disease; N18.6 - End stage renal disease; Z99.2 - Dependence on renal dialysis (7) Hypertension Code(s): I10 - ESSENTIAL (PRIMARY) HYPERTENSION Status: Chronic Qualifiers: Hypertension type: essential hypertension Qualified Code(s): I10 - Essential (primary) hypertension - Plan is on vanc po and iv flagyl, questran bid coag -ve staph likely contaminant in her blood continue iv fluids, suggest less fluid removal from HD continue asp, luis antonio has severe c.diff pancolitis, slowly resolving still has diarrhea but the freq is slowly coming down, will closely monitor replace potassium received 1 u prbc 01/12/2020 hemostable
--- NOTE | 2020-01-15 12:13 | RAD ---
EXAM: XR Abdomen 1 View/KUB PROVIDED CLINICAL HISTORY: C. Difficile. Evaluate for colonic distention. COMPARISON: None FINDINGS: Bowel gas pattern is overall nonspecific. No significant gaseous distention of the colon is appreciat ed on this exam. Calcifications overlie the pelvis shown to represent phleboliths on recent CT scan exam. Vascular calcifications are also seen overlying the pelvis. Degenerative change seen in the spi ne. IMPRESSION: Nonspecific bowel gas pattern.
[2020-01-15] MEDS: metroNIDAZOLE 250 MG in Admixture Fee 2 EACH IVPB SCH ×2 (14:07→20:59)
[2020-01-15] MEDS: Rosuvastatin 20 MG TAB PO SCH (20:43)
[2020-01-16] MEDS: Vancomycin HCl 25 MG/ML Oral PO SCH ×4 (03:19→21:03)
[2020-01-16 04:31] LABS: Anion Gap 13 mmol/L (10-20); BUN (Urea Nitrogen) 13 mg/dL (9.8-20.1); Calc. Creatinine Clearance 15 mL/min (70-130); Calcium 7.7 mg/dL (7.8-10.44); Carbon Dioxide 13 mmol/L (23-31); Chloride 110 mmol/L (98-107); Estimated GFR-MDRD 11; Glucose 159 mg/dL (80-115); Potassium 3.9 mmol/L (3.5-5.1); Sodium 132 mmol/L (136-145)
[2020-01-16 05:17] LABS: Band 1 % (5-11); Eosinophils 2 % (0-10); Hemoglobin 9.7 g/dL (12.0-16.0); Lymphocytes 16 % (21-51); MDiff Complete? YES; Mean Corpuscular HGB CONC 30.1 g/dL (32.0-36.0); Mean Corpuscular Hemoglobin 26.4 pg (27.0-31.0); Mean Corpuscular Volume 87.6 fL (78.0-98.0); Mean Platelet Volume 9.2 fL (7.4-10.4); Monocytes 3 % (0-10); Myelocyte 4 % (0-0); Neutrophil 74 % (42-75); Platelet Count 312 thou/uL (130-400); RBC Distribution Width 19.7 % (11.5-14.5); Red Blood Cell (RBC) Count 3.66 mill/uL (4.20-5.40); White Blood Cell (WBC) Count 21.1 thou/uL (4.8-10.8)
[2020-01-16] MEDS: metroNIDAZOLE 250 MG in Admixture Fee 2 EACH IVPB SCH ×3 (05:54→21:04)
[2020-01-16] MEDS: Heparin 5,000 UNITS/ML VIAL SC SCH ×3 (08:13→21:04)
[2020-01-16] MEDS: Aspirin 81 mg Enteric Coated Tablet PO SCH (08:13)
[2020-01-16] MEDS: Potassium Chloride 20 MEQ TAB PO SCH ×2 (08:14→18:00)
[2020-01-16] MEDS: Saccharomyces boulardii 250 MG CAP PO SCH (08:14)
--- NOTE | 2020-01-16 09:42 | PRG ---
DATE OF SERVICE: 01/16/2020 SUBJECTIVE: Ms. Chacon is a 69-year-old black female with ESRD - on maintenance hemodialysis. She was initially admitted for infective colitis - secondary to C diff colitis. Currently, on vancomycin and metronidazole. Diarrhea is improving over time. She is currently scheduled for hemodialysis this a.m. Fluid removal only as tolerated. No complaints of chest pain or shortness of breath. OBJECTIVE: VITAL SIGNS: Blood pressure is 154/69, heart rate 113, temperature 97.7, respiratory rate 18, O2 saturation 100% on room air. GENERAL: Awake, alert, comfortable, not in distress. SKIN: Adequate turgor. HEENT: Slightly pale conjunctivae. Anicteric sclerae. No neck mass. No carotid bruits. No JVD. CHEST: No deformities. LUNGS: Clear breath sounds. No wheezing. No crackles. HEART: Tachycardic. No murmur. No gallops. No rubs. ABDOMEN: Globular, soft, nontender. No masses. EXTREMITIES: No edema. No deformities. MEDICATIONS: Medications of January 16, 2020, were reviewed. LABORATORY DATA: Laboratories of January 16, 2020; white count 21.1, hemoglobin 9.7. Sodium 132, potassium 3.9, chloride 110, carbon dioxide 13, BUN 13, creatinine 4.6, glucose 159, calcium 7.7. ASSESSMENT AND PLAN: 1. End-stage renal disease, stable. We will continue current Wednesday, , and Wednesday dialysis regimen. Fluid removal as tolerated by the patient. No changes will be made with the current dialysis regimen. 2. C diff colitis/diarrhea, clinically improving. 3. Leukocytosis - repeat blood culture x2 has been ordered. 4. Anemia. Currently, on weekly Epogen of 7500 units subcu every week. Recheck basic metabolic, CBC in a.m. Job ID: [id number]
--- NOTE | 2020-01-16 11:58 | PDOC.HOSPP ---
- Subjective Encounter Date: 01/16/20 Encounter Time: 10:00 Subjective: is getting HD no complaints of abd pain or nausea had around 8 episodes of diarrhea yesterday and one this am - Objective Vital Signs & Weight: Vital Signs (12 hours) Temp Pulse Resp BP Pulse Ox 01/16/20 08:00 97.7 F 113 H 18 154/69 H 100 Weight Admit Weight 179 lb 12.8 oz Weight 179 lb 12.8 oz I&O: 01/15/20 01/16/20 01/17/20 06:59 06:59 06:59 Intake Total 2635 1690 Output Total 400 Balance 2635 1690 -400 Result Diagrams: 01/16/20 03:54 01/16/20 03:54 Additional Labs: Accuchecks 01/15/20 01/15/20 20:46 16:18 POC Glucose 118 H 206 H Hospitalist ROS - Medication Medications: Active Medications Generic Name Dose Route Start Last Admin Trade Name Freq PRN Reason Stop Dose Admin Acetaminophen 650 mg 01/07/20 13:49 01/09/20 21:10 Tylenol PO 650 mg Q4H PRN Administration Headache/Fever/Mild Pain (1-3) Aspirin 81 mg 01/08/20 09:00 01/16/20 08:13 Ecotrin PO 81 mg DAILY ORIANA Administration Cholestyramine Resin 4 gm 01/13/20 22:00 01/15/20 20:49 Questran Light PO 4 gm 1000,2200 ORIANA Administration Epoetin Ronaldo-epbx 7,500 unit 01/11/20 09:15 01/11/20 14:52 Retacrit SC 7,500 unit Q7D ORIANA Administration Heparin Sodium (Porcine) 5,000 units 01/07/20 15:00 01/16/20 08:13 Heparin SC 5,000 units TID ORIANA Administration Metronidazole 250 mg/ 50 mls @ 100 mls/hr 01/15/20 14:00 01/16/20 05:54 Miscellaneous Medication IVPB 50 mls Q8HR ORIANA Administration Insulin Human Lispro 0 units 01/07/20 13:57 01/15/20 17:09 Humalog SC 3 unit .MILD SLIDING SCALE PRN Administration Mild Correctional Scale Pantoprazole Sodium 40 mg 01/11/20 21:00 01/15/20 20:43 Protonix PO 40 mg 2100 ORIANA Administration Potassium Chloride 40 meq 07/01/20 17:00 01/16/20 08:14 K-Dur PO 40 meq BID-WM ORIANA Administration Rosuvastatin Calcium 40 mg 01/07/20 21:00 01/15/20 20:43 Crestor PO 40 mg HS ORIANA Administration Saccharomyces Boulardii 250 mg 01/13/20 09:00 01/16/20 08:14 Florastor PO 250 mg DAILY ORIANA Administration Sodium Chloride 10 ml 01/07/20 21:00 01/15/20 20:49 Flush - Normal Saline IVF 10 ml Q12HR ORIANA Administration Vancomycin HCl 500 mg 01/08/20 21:00 01/16/20 03:19 First Vancomycin PO 500 mg 0300,0900,1500,2100 ORIANA Administration - Exam General Appearance: awake alert Eye: PERRL, anicteric sclera ENT: no oropharyngeal lesions, moist mucosa Neck: supple, no JVD Heart: RRR, no murmur Respiratory: no wheezes, no rales Gastrointestinal: soft, non-distended, normal bowel sounds, no guarding, no rigidity Extremities: no cyanosis, no edema Neurological: cranial nerve grossly intact, no focal deficits Psychiatric: normal affect, A&O x 3 Hosp A/P (1) C. difficile colitis Code(s): A04.72 - ENTEROCOLITIS D/T CLOSTRIDIUM DIFFICILE, NOT SPCF RECUR Status: Acute (2) Sepsis Code(s): A41.9 - SEPSIS, UNSPECIFIED ORGANISM Status: Acute Qualifiers: Sepsis acute organ dysfunction status: without acute organ dysfunction (3) End stage renal disease on dialysis Code(s): N18.6 - END STAGE RENAL DISEASE; Z99.2 - DEPENDENCE ON RENAL DIALYSIS Status: Chronic (4) HLD (hyperlipidemia) Code(s): E78.5 - HYPERLIPIDEMIA, UNSPECIFIED Status: Chronic Qualifiers: Hyperlipidemia type: unspecified Qualified Code(s): E78.5 - Hyperlipidemia , unspecified (5) Anemia in chronic kidney disease Code(s): N18.9 - CHRONIC KIDNEY DISEASE, UNSPECIFIED; D63.1 - ANEMIA IN CHRONIC KIDNEY DISEASE Status: Chronic Qualifiers: Chronic kidney disease stage: on chronic dialysis Qualified Code(s): N18.6 - End stage renal disease; D63.1 - Anemia in chronic kidney disease; Z99.2 - Dependence on renal dialysis (6) Diabetes mellitus Code(s): E11.9 - TYPE 2 DIABETES MELLITUS WITHOUT COMPLICATIONS Status: Chronic Qualifiers: Diabetes mellitus type: type 2 Diabetes mellitus petroleum terminal plant operator insulin use: without petroleum terminal plant operator use Diabetes mellitus complication status: with kidney complications Diabetes mellitus complication detail: with chronic kidney disease Chronic kidney disease stage: on chronic dialysis Qualified Code(s) : E11.22 - Type 2 diabetes mellitus with diabetic chronic kidney disease; N18.6 - End stage renal disease; Z99.2 - Dependence on renal dialysis (7) Hypertension Code(s): I10 - ESSENTIAL (PRIMARY) HYPERTENSION Status: Chronic Qualifiers: Hypertension type: essential hypertension Qualified Code(s): I10 - Essential (primary) hypertension - Plan is on vanc po and iv flagyl, questran bid coag -ve staph likely contaminant in her blood continue iv fluids, suggest less fluid removal from HD continue asp, luis antonio has severe c.diff pancolitis, very slowly resolving still has diarrhea but the freq is slowly coming down though still high (total of 8 yesterday), will closely monitor replace potassium prn received 1 u prbc 01/12/2020 hemostable
[2020-01-16] MEDS: Cholestyramine/Aspartame 4 gm Packet PO SCH ×2 (13:19→21:04)
--- NOTE | 2020-01-16 15:35 | PRG ---
DATE OF SERVICE: 01/16/2020 SUBJECTIVE: Mrs. Chacon has had 4 bowel movements so far today. These are essentially mostly mucus and blood streaks. I visualized one of her stools in the room today. She is not really having much abdominal pain or any nausea. She is tolerating her diet. OBJECTIVE: VITAL SIGNS: Temperature 96.7, pulse 118, blood pressure 139/75, and 100% oxygen saturation on room air. GENERAL: No acute distress. HEART: Regular rate and rhythm. LUNGS: Clear to auscultation bilaterally. ABDOMEN: Bowel sounds are active. Nondistended. Some mild generalized tenderness to palpation, but no guarding, rebound tenderness. EXTREMITIES: No peripheral edema. LABORATORY STUDIES: WBC is up to 21.1, hemoglobin 9.7, and platelets 312. Sodium 132, potassium 3.9, BUN 13, and creatinine 4.60. IMAGING STUDIES: Abdominal x-ray from yesterday demonstrated no significant colonic distention. ASSESSMENT AND PLAN: 1. Clostridium difficile colitis, severe. 2. Chronic kidney disease, on dialysis. Continue on IV Flagyl and oral vancomycin for now. She was continued to have slow improvement, but still having overt blood in the stool. On hospital discharge, plan to taper the vancomycin dose as outlined by Dr. Burnham in his note from yesterday. I would continue the oral cholestyramine for now as well. Job ID: [id number]
[2020-01-16] MEDS: HumaLOG 300 UNITS/3 ML VIAL SC PRN ×2 (18:01→21:04)
[2020-01-16] MEDS: Rosuvastatin 20 MG TAB PO SCH (21:02)
[2020-01-17] MEDS: Vancomycin HCl 25 MG/ML Oral PO SCH ×4 (02:43→19:19)
[2020-01-17 04:56] LABS: #Eosinphils 0.1 thou/uL (0.0-0.7); #Lymphocytes 2.4 thou/uL (1.20-3.40); #Monocytes 1.1 thou/uL (0.11-0.59); #Neutrophils 12.2 thou/uL (1.40-6.50); %Basophils 0.2 % (0.0-1.0); %Eosinophils 0.6 % (0.0-10.0); %Lymphocytes 14.8 % (21.0-51.0); %Monocytes 7.1 % (0.0-10.0); %Neutrophils 77.2 % (42.0-75.0); Hemoglobin 8.5 g/dL (12.0-16.0); Mean Corpuscular HGB CONC 30.2 g/dL (32.0-36.0); Mean Corpuscular Hemoglobin 26.3 pg (27.0-31.0); Mean Corpuscular Volume 86.9 fL (78.0-98.0); Mean Platelet Volume 8.9 fL (7.4-10.4); Platelet Count 256 thou/uL (130-400); RBC Distribution Width 20.3 % (11.5-14.5); Red Blood Cell (RBC) Count 3.24 mill/uL (4.20-5.40); White Blood Cell (WBC) Count 15.8 thou/uL (4.8-10.8)
[2020-01-17 05:15] LABS: Anion Gap 12 mmol/L (10-20); BUN (Urea Nitrogen) 14 mg/dL (9.8-20.1); Calc. Creatinine Clearance 18 mL/min (70-130); Calcium 7.5 mg/dL (7.8-10.44); Carbon Dioxide 19 mmol/L (23-31); Chloride 107 mmol/L (98-107); Estimated GFR-MDRD 14; Glucose 119 mg/dL (80-115); Potassium 3.6 mmol/L (3.5-5.1); Sodium 134 mmol/L (136-145)
[2020-01-17] MEDS: metroNIDAZOLE 250 MG in Admixture Fee 2 EACH IVPB SCH ×3 (06:21→21:26)
--- NOTE | 2020-01-17 09:12 | PRG ---
DATE OF SERVICE: 01/17/2020 SERVICE: Renal Medicine. SUBJECTIVE: Ms. Chacon is a 69-year-old black female with ESRD and on maintenance hemodialysis. She was initially admitted for colitis secondary to C diff infection. She has been on metronidazole and vancomycin. Colitis is slowly improving. Diarrhea is much less. She is also tolerating the current dialysis regimen. No new complaints today. No chest pain or shortness of breath. OBJECTIVE: VITAL SIGNS: Blood pressure 153/67, heart rate 101, respiratory rate 16, temperature 98.9, O2 saturation 100% on room air. GENERAL: The patient is awake, alert, comfortable, not in distress. SKIN: Adequate turgor. HEENT: She has a slightly pale conjunctivae. Anicteric sclerae. NECK: No neck mass. No carotid bruits. No JVD. CHEST: No deformities. LUNGS: Clear breath sounds. No wheezing. No crackles. HEART: Normal sinus rhythm. No murmur. No gallops. No rubs. ABDOMEN: Globular, soft, nontender. No masses. EXTREMITIES: No edema. No deformities. MEDICATIONS: Medications of January 17, 2020, reviewed. LABORATORY DATA: Laboratories of January 17, 2020; white count 15.8, hemoglobin 8.5. Sodium 134, potassium 3.6, chloride 107, carbon dioxide 19, BUN 14, creatinine 3.87, glucose 119, calcium 7.5. Blood culture of January 15, 2020, no growth to date. ASSESSMENT AND PLAN: 1. End-stage renal disease, stable. We will continue three times a week hemodialysis. She is tolerating said treatment and fluid removal with that. 2. Chronic anemia. Continuing weekly Epogen. P.r.n. blood transfusion for hemoglobin less than 7. 3. Clostridium difficile colitis, much improved. Please note, white count has dropped down to 15.8 from 21.1. Hemoglobin was noted at 8.5. Job ID: [id number]
[2020-01-17] MEDS: Cholestyramine/Aspartame 4 gm Packet PO SCH ×2 (09:24→21:27)
[2020-01-17] MEDS: Aspirin 81 mg Enteric Coated Tablet PO SCH (09:24)
[2020-01-17] MEDS: Heparin 5,000 UNITS/ML VIAL SC SCH ×3 (09:24→19:20)
[2020-01-17] MEDS: Potassium Chloride 20 MEQ TAB PO SCH ×2 (09:24→18:00)
[2020-01-17] MEDS: Saccharomyces boulardii 250 MG CAP PO SCH (09:25)
--- NOTE | 2020-01-17 11:40 | PRG ---
DATE OF SERVICE: 01/17/2020 SUBJECTIVE: Ms. Chacon feels better today. She only has some cramping in her lower abdomen just before bowel movements. She has been passing brown soft stools, but in between bowel movements, she has still some bloody mucoid small volume stools . PHYSICAL EXAMINATION: VITAL SIGNS: Temperature 98.0, pulse 110, blood pressure 174/75. GENERAL: She is in no acute distress. She appears comfortable, alert, and oriented x3. LUNGS: Clear to auscultation bilaterally. HEART: Tachycardic, S1 and S2 without murmur. ABDOMEN: Soft, nontender, and nondistended. Bowel sounds are present. EXTREMITIES: No lower extremity edema. LABORATORY DATA: White blood cell count 15.8, hemoglobin 8.5, and platelets 256. INR 1.2. Creatinine 3.87. IMPRESSION: Severe Clostridium difficile colitis. She has been on vancomycin 500 mg four times daily along with IV metronidazole 250 mg three times daily. I believe we are seeing clinical improvement as she is now having more substance with soft brown stools, but there is still active inflammation as she is passing the bloody mucoid stools in between. She has no abdominal pain other than just before bowel movements. Clinically, she appears to be doing better. Continue current management. RECOMMENDATIONS: 1. Continue oral vancomycin. 2. Continue metronidazole IV. 3. Continue Florastor. 4. She is tolerating a solid diet well at this time. 5. She continues with hemodialysis. Job ID: [id number]
[2020-01-17] MEDS: HumaLOG 300 UNITS/3 ML VIAL SC PRN ×2 (11:57→19:31)
--- NOTE | 2020-01-17 12:29 | PDOC.HOSPP ---
- Subjective Encounter Date: 01/17/20 Subjective: Patient was seen and examined bedside this morning she reports feeling much better regarding her diarrhea she reports rough night last night with multiple episodes however that since the morning she has been doing well tolerating more oral feeds denying any chest pain or shortness of breath or any other complaints - Objective Vital Signs & Weight: Vital Signs (12 hours) Temp Pulse Resp BP Pulse Ox 01/17/20 11:45 97.9 F 112 H 18 170/70 H 98 01/17/20 09:18 98.0 F 110 H 18 174/75 H 98 01/17/20 08:00 98 Weight Admit Weight 179 lb 12.8 oz Weight 179 lb 12.8 oz I&O: 01/16/20 01/17/20 01/18/20 06:59 06:59 06:59 Intake Total 1690 900 Output Total 2406 Balance 1690 -1506 Result Diagrams: 01/17/20 04:39 01/17/20 04:39 Additional Labs: Accuchecks 01/17/20 01/16/20 01/16/20 11:30 20:33 17:41 POC Glucose 300 H 215 H 252 H 01/16/20 13:33 POC Glucose 136 H Hospitalist ROS - Medication Medications: Active Medications Generic Name Dose Route Start Last Admin Trade Name Freq PRN Reason Stop Dose Admin Acetaminophen 650 mg 01/07/20 13:49 01/09/20 21:10 Tylenol PO 650 mg Q4H PRN Administration Headache/Fever/Mild Pain (1-3) Aspirin 81 mg 01/08/20 09:00 01/17/20 09:24 Ecotrin PO 81 mg DAILY ORIANA Administration Cholestyramine Resin 4 gm 01/13/20 22:00 01/17/20 09:24 Questran Light PO 4 gm 1000,2200 ORIANA Administration Epoetin Ronaldo-epbx 7,500 unit 01/11/20 09:15 01/11/20 14:52 Retacrit SC 7,500 unit Q7D ORIANA Administration Heparin Sodium (Porcine) 5,000 units 01/07/20 15:00 01/17/20 09:24 Heparin SC 5,000 units TID ORIANA Administration Metronidazole 250 mg/ 50 mls @ 100 mls/hr 01/15/20 14:00 01/17/20 06:21 Miscellaneous Medication IVPB 50 mls Q8HR ORIANA Administration Insulin Human Lispro 0 units 01/07/20 13:57 01/17/20 11:57 Humalog SC 4 unit .MILD SLIDING SCALE PRN Administration Mild Correctional Scale Pantoprazole Sodium 40 mg 01/11/20 21:00 01/16/20 21:02 Protonix PO 40 mg 2100 ORIANA Administration Potassium Chloride 40 meq 01/10/20 17:00 01/17/20 09:24 K-Dur PO 40 meq BID-WM ORIANA Administration Rosuvastatin Calcium 40 mg 01/07/20 21:00 01/16/20 21:02 Crestor PO 40 mg HS ORIANA Administration Saccharomyces Boulardii 250 mg 01/13/20 09:00 01/17/20 09:25 Florastor PO 250 mg DAILY ORIANA Administration Sodium Chloride 10 ml 01/07/20 21:00 01/17/20 09:25 Flush - Normal Saline IVF 10 ml Q12HR ORIANA Administration Vancomycin HCl 500 mg 01/08/20 21:00 01/17/20 09:27 First Vancomycin PO 500 mg 0300,0900,1500,2100 ORIANA Administration - Exam General Appearance: NAD, awake alert Eye: PERRL, anicteric sclera Neck: supple Heart: RRR Respiratory: CTAB Gastrointestinal: soft, non-tender Extremities: no cyanosis Neurological: cranial nerve grossly intact Musculoskeletal: normal tone Hosp A/P (1) C. 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 insulin use: without penitentiary use Diabetes mellitus complication status: with kidney complications Diabetes mellitus complication detail: with chronic kidney disease Chronic kidney disease stage: on chronic dialysis Qualified Code(s) : E11.22 - Type 2 diabetes mellitus with diabetic chronic kidney disease; N18.6 - End stage renal disease; Z99.2 - Dependence on renal dialysis (5) Hypertension Code(s): I10 - ESSENTIAL (PRIMARY) HYPERTENSION Status: Chronic Qualifiers: Hypertension type: essential hypertension Qualified Code(s): I10 - Essential (primary) hypertension - Plan Patient reports some improvement today we will continue with Vanco p.o. and IV Flagyl monitor for now Continue IV fluids monitor electrolytes and replace as needed Leukocytosis slowly improving Coag negative staph most likely contamination Status post 1 unit PRBC January 11 we will continue monitor CBC and transfuse if hemoglobin less than 7 Continue the rest of home medication monitor fingerstick Patient is full code All questions has been answered Possible discharge in the next 24 to 48 hours if patient diarrhea continues to improve
[2020-01-17 17:57] LABS: Anion Gap 16 mmol/L (10-20); BUN (Urea Nitrogen) 18 mg/dL (9.8-20.1); Calc. Creatinine Clearance 16 mL/min (70-130); Calcium 7.8 mg/dL (7.8-10.44); Carbon Dioxide 13 mmol/L (23-31); Chloride 110 mmol/L (98-107); Estimated GFR-MDRD 12; Glucose 162 mg/dL (80-115); Potassium 4.9 mmol/L (3.5-5.1); Sodium 134 mmol/L (136-145)
[2020-01-17] MEDS: Rosuvastatin 20 MG TAB PO SCH (19:19)
[2020-01-18] MEDS: Vancomycin HCl 25 MG/ML Oral PO SCH ×4 (03:47→21:04)
[2020-01-18] MEDS: metroNIDAZOLE 250 MG in Admixture Fee 2 EACH IVPB SCH ×3 (05:19→22:26)
[2020-01-18] MEDS: Potassium Chloride 20 MEQ TAB PO SCH ×2 (08:31→17:01)
[2020-01-18] MEDS: Saccharomyces boulardii 250 MG CAP PO SCH (08:32)
[2020-01-18] MEDS: Aspirin 81 mg Enteric Coated Tablet PO SCH (08:32)
[2020-01-18] MEDS: Heparin 5,000 UNITS/ML VIAL SC SCH ×3 (08:33→21:04)
[2020-01-18] MEDS ORDERED: Magnesium 2 GM/50 ML 2 GM in Premix Bag 1 BAG IVPB SCH (09:15)
--- NOTE | 2020-01-18 09:33 | PRG ---
DATE OF SERVICE: 01/18/2020 SUBJECTIVE: Ms. Chacon is a 69-year-old black female with ESRD, currently on maintenance hemodialysis of Wednesday, , and Wednesday. She is scheduled for dialysis again this morning. She was initially admitted for infective colitis-C diff colitis. This is slowly improving. GI is following. The patient has been placed on metronidazole and vancomycin. This morning, she voices no new complaints. No chest pain or shortness of breath. OBJECTIVE: VITAL SIGNS: Blood pressure is noted at 160/66, heart rate 109, respiratory rate 16, temperature 96.6, and O2 saturation 98% on room air. GENERAL: Awake, alert, and comfortable, not in overt distress. SKIN: Adequate turgor. HEENT: Slightly pale conjunctivae. Anicteric sclerae. NECK: No neck mass. No carotid bruits. No JVD. CHEST: No deformities. LUNGS: Clear breath sounds. HEART: Normal sinus rhythm. No murmur. No gallops. No rubs. ABDOMEN: Globular, soft, and nontender. No masses. EXTREMITIES: No edema. No deformities. MEDICATIONS: Medications of January 18, 2020, were reviewed. LABORATORY DATA: Laboratories of January 17, 2020; sodium 134, potassium 4.9, chloride 110, carbon dioxide 13, BUN 18, creatinine 4.41, glucose 162, calcium 7.8 On January 18, 2020, magnesium is 1.4. ASSESSMENT AND PLAN: 1. Hypomagnesemia, p.r.n. magnesium replacement. Consider magnesium sulfate 2 g IV. 2. End-stage renal disease, stable. We will continue current 3 times a week hemodialysis. She is scheduled for regular dialysis today. Fluid removal only as tolerated. 3. Anemia. Continuing Epogen. 4. Clostridium difficile colitis, clinically improving. Currently, on IV metronidazole and oral vancomycin. Please note, blood culture on January 15, 2020, showed no growth today. 5. Recheck CBC and basic metabolic in a.m. Job ID: [id number] [facility]
--- NOTE | 2020-01-18 11:51 | PDOC.HOSPP ---
- Subjective Encounter Date: 01/18/20 Subjective: Patient was seen and examined bedside this morning cont to report feeling much better regarding her diarrhea tolerating more oral feeds denying any chest pain or shortness of breath or any other complaints - Objective Vital Signs & Weight: Weight Admit Weight 179 lb 12.8 oz Weight 179 lb 12.8 oz I&O: 01/17/20 01/18/20 01/19/20 06:59 06:59 06:59 Intake Total 900 2019 Output Total 2406 Balance -1506 2019 Result Diagrams: 01/17/20 04:39 01/17/20 17:33 Additional Labs: Accuchecks 01/18/20 01/17/20 01/17/20 05:27 19:38 17:28 POC Glucose 150 H 200 H 165 H 01/17/20 11:30 POC Glucose 300 H Hospitalist ROS - Medication Medications: Active Medications Generic Name Dose Route Start Last Admin Trade Name Freq PRN Reason Stop Dose Admin Acetaminophen 650 mg 01/07/20 13:49 01/09/20 21:10 Tylenol PO 650 mg Q4H PRN Administration Headache/Fever/Mild Pain (1-3) Aspirin 81 mg 01/08/20 09:00 01/18/20 08:32 Ecotrin PO 81 mg DAILY ORIANA Administration Cholestyramine Resin 4 gm 01/13/20 22:00 01/17/20 21:27 Questran Light PO 4 gm 1000,2200 ORIANA Administration Epoetin Ronaldo-epbx 7,500 unit 01/11/20 09:15 01/11/20 14:52 Retacrit SC 7,500 unit Q7D ORIANA Administration Heparin Sodium (Porcine) 5,000 units 01/07/20 15:00 01/18/20 08:33 Heparin SC 5,000 units TID ORIANA Administration Metronidazole 250 mg/ 50 mls @ 100 mls/hr 01/15/20 14:00 01/18/20 05:19 Miscellaneous Medication IVPB 50 mls Q8HR ORIANA Administration Insulin Human Lispro 0 units 01/07/20 13:57 01/17/20 19:31 Humalog SC 2 unit .MILD SLIDING SCALE PRN Administration Mild Correctional Scale Pantoprazole Sodium 40 mg 01/11/20 21:00 01/17/20 19:30 Protonix PO 40 mg 2100 ORIANA Administration Potassium Chloride 40 meq 01/10/20 17:00 01/18/20 08:31 K-Dur PO 40 meq BID-WM ORIANA Administration Rosuvastatin Calcium 40 mg 01/07/20 21:00 01/17/20 19:19 Crestor PO 40 mg HS ORIANA Administration Saccharomyces Boulardii 250 mg 01/13/20 09:00 01/18/20 08:32 Florastor PO 250 mg DAILY ORIANA Administration Sodium Chloride 10 ml 01/07/20 21:00 01/18/20 08:33 Flush - Normal Saline IVF 10 ml Q12HR ORIANA Administration Vancomycin HCl 500 mg 01/08/20 21:00 01/18/20 08:32 First Vancomycin PO 500 mg 0300,0900,1500,2100 ORIANA Administration - Exam General Appearance: NAD, awake alert Eye: PERRL ENT: normocephalic atraumatic Neck: supple Respiratory: CTAB, no wheezes Gastrointestinal: soft, non-tender Musculoskeletal: normal tone Hosp A/P (1) C. 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 use Diabetes mellitus complication status: with kidney complications Diabetes mellitus complication detail: with chronic kidney disease Chronic kidney disease stage: on chronic dialysis Qualified Code(s) : E11.22 - Type 2 diabetes mellitus with diabetic chronic kidney disease; N18.6 - End stage renal disease; Z99.2 - Dependence on renal dialysis (5) Hypertension Code(s): I10 - ESSENTIAL (PRIMARY) HYPERTENSION Status: Chronic Qualifiers: Hypertension type: essential hypertension Qualified Code(s): I10 - Essential (primary) hypertension - Plan Patient reports some improvement today we will continue with Vanco p.o. and IV Flagyl monitor for now Continue IV fluids monitor electrolytes and replace as needed Leukocytosis slowly improving Coag negative staph most likely contamination leukcytosis improving appreciate gi inpu Status post 1 unit PRBC January 11 we will continue monitor CBC and transfuse if hemoglobin less than 7 Continue the rest of home medication monitor fingerstick Patient is full code All questions has been answered Possible discharge in the next 24 to 48 hours if patient diarrhea continues to improve
[2020-01-18 12:40] LABS: #Eosinphils 0.1 thou/uL (0.0-0.7); #Lymphocytes 1.6 thou/uL (1.20-3.40); #Monocytes 0.7 thou/uL (0.11-0.59); #Neutrophils 10.1 thou/uL (1.40-6.50); %Basophils 0.3 % (0.0-1.0); %Eosinophils 0.4 % (0.0-10.0); %Monocytes 5.5 % (0.0-10.0); %Neutrophils 80.8 % (42.0-75.0); Hemoglobin 9.7 g/dL (12.0-16.0); Mean Corpuscular HGB CONC 30.9 g/dL (32.0-36.0); Mean Corpuscular Hemoglobin 26.7 pg (27.0-31.0); Mean Corpuscular Volume 86.2 fL (78.0-98.0); Mean Platelet Volume 8.9 fL (7.4-10.4); Platelet Count 286 thou/uL (130-400); RBC Distribution Width 20.6 % (11.5-14.5); Red Blood Cell (RBC) Count 3.65 mill/uL (4.20-5.40); White Blood Cell (WBC) Count 12.5 thou/uL (4.8-10.8)
[2020-01-18 13:11] LABS: Anion Gap 12 mmol/L (10-20); BUN (Urea Nitrogen) 7 mg/dL (9.8-20.1); Calc. Creatinine Clearance 44 mL/min (70-130); Carbon Dioxide 24 mmol/L (23-31); Chloride 105 mmol/L (98-107); Estimated GFR-MDRD 39; Glucose 134 mg/dL (80-115); Sodium 138 mmol/L (136-145)
[2020-01-18] MEDS: Cholestyramine/Aspartame 4 gm Packet PO SCH ×2 (15:23→22:24)
[2020-01-18] MEDS: EPOETIN ALFA-EPBX (ESRD) 4,000 UNIT/ML VIAL SC SCH (15:25)
--- NOTE | 2020-01-18 17:35 | PRG ---
DATE OF SERVICE: 01/18/2020 REASON FOR CONSULTATION: Hematochezia, colitis. SUBJECTIVE: The patient states that over the last 24 hours she has had approximately 2 to 3 semi-solid to solid bowel movements with no difficulty with defecation. She does continue to have some mild abdominal cramping located in the suprapubic region prior to having a bowel movement, but states that this abdominal pain will resolve with actual bowel movements. She does continue to have some small volume mucoid blood-tinged stools, but denies any overt or gross hematochezia. Currently, she denies any nausea, vomiting, fevers, chills, or abdominal pain. OBJECTIVE: VITAL SIGNS: Temperature 98.2, pulse 113, blood pressure 167/69, respiratory rate 16, and saturating 96% on room air. GENERAL: The patient was lying in bed, in no acute distress. Alert and oriented x4. CARDIOVASCULAR: Tachycardic rate, but regular rhythm. RESPIRATORY: Clear to auscultation bilaterally. ABDOMEN: Normoactive bowel sounds. Soft, nondistended, mild tenderness to palpation in the periumbilical region. EXTREMITIES: No cyanosis, clubbing, or edema. LABORATORY DATA: CBC with a white blood cell count of 12.5, hemoglobin 9.7, hematocrit 31.5, and platelets 286. Chemistry with a sodium of 138, potassium 3, chloride 105, CO2 of 24, BUN 7, creatinine 1.59, and glucose 134. ASSESSMENT AND PLAN: Severe Clostridium difficile colitis. The patient initially presented with increased abdominal pain, significant diarrhea with testing showing Clostridium difficile positive on 01/05/2020. She was subsequently placed on oral vancomycin 500 mg every 6 hours in addition to IV metronidazole 250 mg every 8 hours and has been having slow clinical improvement, but improvement nonetheless. At this time, she is now having approximately 1 to 2 semi-solid to solid bowel movements, indicating response to treatment and most likely clearing of the infection. She does continue to have some bloody mucoid stools, but most likely due to residual inflammation related to the Clostridium difficile colitis. RECOMMENDATIONS: 1. Continue oral vancomycin and metronidazole at the current dosing. 2. Continue Florastor. 3. Continue current diet. We will sign off at this time given the patient's significant clinical improvement and appropriate antibiotic therapy. Please call with any questions. Job ID: [id number]
[2020-01-18] MEDS: Rosuvastatin 20 MG TAB PO SCH (21:05)
[2020-01-18] MEDS: HumaLOG 300 UNITS/3 ML VIAL SC PRN (22:24)
[2020-01-19] MEDS: Vancomycin HCl 25 MG/ML Oral PO SCH (03:27)
[2020-01-19] MEDS: HumaLOG 300 UNITS/3 ML VIAL SC PRN ×2 (05:29→11:55)
[2020-01-19] MEDS: metroNIDAZOLE 250 MG in Admixture Fee 2 EACH IVPB SCH (05:29)
[2020-01-19 06:23] LABS: #Lymphocytes 1.4 thou/uL (1.20-3.40); #Monocytes 0.8 thou/uL (0.11-0.59); #Neutrophils 11.8 thou/uL (1.40-6.50); %Basophils 0.3 % (0.0-1.0); %Eosinophils 0.3 % (0.0-10.0); %Lymphocytes 9.8 % (21.0-51.0); %Monocytes 5.6 % (0.0-10.0); %Neutrophils 84.1 % (42.0-75.0); Hemoglobin 8.5 g/dL (12.0-16.0); Mean Corpuscular HGB CONC 30.7 g/dL (32.0-36.0); Mean Corpuscular Hemoglobin 26.8 pg (27.0-31.0); Mean Corpuscular Volume 87.3 fL (78.0-98.0); Mean Platelet Volume 9.2 fL (7.4-10.4); Platelet Count 254 thou/uL (130-400); RBC Distribution Width 20.8 % (11.5-14.5); Red Blood Cell (RBC) Count 3.16 mill/uL (4.20-5.40)
[2020-01-19 06:47] LABS: Anion Gap 13 mmol/L (10-20); BUN (Urea Nitrogen) 16 mg/dL (9.8-20.1); Calc. Creatinine Clearance 21 mL/min (70-130); Calcium 7.6 mg/dL (7.8-10.44); Carbon Dioxide 16 mmol/L (23-31); Chloride 110 mmol/L (98-107); Estimated GFR-MDRD 17; Glucose 171 mg/dL (80-115); Potassium 3.6 mmol/L (3.5-5.1); Sodium 135 mmol/L (136-145)
[2020-01-19 08:26] VITALS: BP 155/70; TEMP 98.6
[2020-01-19] MEDS: Saccharomyces boulardii 250 MG CAP PO SCH (08:44)
[2020-01-19] MEDS: Heparin 5,000 UNITS/ML VIAL SC SCH (08:45)
[2020-01-19] MEDS: Aspirin 81 mg Enteric Coated Tablet PO SCH (08:45)
[2020-01-19] MEDS: Potassium Chloride 20 MEQ TAB PO SCH (08:45)
--- NOTE | 2020-01-19 08:53 | PRG ---
DATE OF SERVICE: 01/19/2020 SUBJECTIVE: Ms. Chacon is a 69-year-old black female with ESRD - on maintenance hemodialysis. She underwent hemodialysis yesterday without any difficulty. She was also initially admitted for Clostridium difficile colitis. Clostridium difficile colitis clinically improving. No new complaints. No chest pain or shortness of breath. OBJECTIVE: VITAL SIGNS: Blood pressure 155/70, heart rate is 113, respiratory rate 18, O2 saturation 100%, and temperature 98.6. GENERAL: The patient is awake, alert, sitting comfortable, not in distress. SKIN: Adequate turgor. HEENT: Slightly pale conjunctivae. Anicteric sclerae. NECK: No neck mass. No carotid bruits. No JVD. CHEST: No deformities. LUNGS: Clear breath sounds. No wheezing. No crackles. HEART: Tachycardic. No murmur, no gallops, and no rubs. ABDOMEN: Globular, soft, nontender. No masses. EXTREMITIES: No edema. No deformities. MEDICATIONS: Medications of January 19, 2020, were reviewed. LABORATORY DATA: Laboratories of January 19, 2020; white count 14, hemoglobin 8.5. Sodium 135, potassium 3.6, chloride 110, carbon dioxide 16, BUN is 16, creatinine 3.34, glucose is 171, calcium 7.6, and magnesium 2.0. ASSESSMENT AND PLAN: 1. End-stage renal disease, stable. We will continue current Wednesday, , and Wednesday dialysis. Again, fluid removal only as tolerated. 2. Continuing weekly Epogen. 3. Hypomagnesemia, much improved after magnesium sulfate infusion. 4. Clostridium difficile colitis, clinically improving. Recheck CBC and basic metabolic profile in a.m. Job ID: [id number]
[2020-01-19] MEDS: Cholestyramine/Aspartame 4 gm Packet PO SCH (10:18)
== END 2020-01-19 12:50 | disposition home or self-care (01) | DRG 871 ==
LOC: ERS 08:34 → 2NO 13:15 → ONC 01-08 20:48
PROVIDERS: ADMIT Internal Medicine; ATTEND Internal Medicine
PROC: 8E0ZXY6 Isolation (ICD-10-PCS; 2020-01-07)
PROC: 5A1D70Z Performance of Urinary Filtration, Intermittent, Less than 6 Hours Per Day (ICD-10-PCS; 2020-01-09)
PROC: 30233N1 Transfusion of Nonautologous Red Blood Cells into Peripheral Vein, Percutaneous Approach (ICD-10-PCS; principal; 2020-01-12)
DX: A41.1 Sepsis due to other specified staphylococcus (principal); N18.6 End stage renal disease; I12.0 Hypertensive chronic kidney disease with stage 5 chronic kidney disease or end stage renal disease; A04.72 Enterocolitis due to Clostridium difficile, not specified as recurrent; E11.22 Type 2 diabetes mellitus with diabetic chronic kidney disease; G47.33 Obstructive sleep apnea (adult) (pediatric); E78.5 Hyperlipidemia, unspecified; D63.1 Anemia in chronic kidney disease; E83.42 Hypomagnesemia; E87.6 Hypokalemia; Z99.2 Dependence on renal dialysis; Z79.899 Other long term (current) drug therapy; Z79.4 Long term (current) use of insulin; Z90.49 Acquired absence of other specified parts of digestive tract; Z90.710 Acquired absence of both cervix and uterus; Z88.5 Allergy status to narcotic agent
CPT/HCPCS: 36415; 36416; 36430; 71045; 74018; 74177; 80048; 80053; 81003; 81015; 82040; 82274; 82550; 83605; 83690; 83735; 83880; 84100; 84484; 85025; 85610; 85730; 86850; 86900; 86901; 87040; 87045; 87046; 87149; 87324; 87340; 87427; 87449; 90935; 93005; 96361; 96365; 96367; 96375; G0257; J0692; J1644; J1956; J2543; J3370; J3475; J3480; J3490; P9016; Q5105; Q5106; Q9967

== ENCOUNTER 2020-03-01 10:44 | Day surgery (SDC) | payer MEDICARE ==
--- NOTE | 2020-02-27 23:59 | HP ---
HISTORY OF PRESENT ILLNESS: Steff Chacon is a 69-year-old female with end-stage renal disease, dialyzes at [facility] , Wednesday, , and Wednesday at 12:15 p.m. to 4:25 p.m. She lives in [place]. She has had a left Timur fistula placed by Dr. Fam, seemed to be working well initially but thrombosed. Ultrasound vein mapping reveals appropriate veins candidates for fistula upper arm. She desires peritoneal dialysis, followed by Dr. Neal Sands. She is right handed. PLAN: Laparoscopic peritoneal dialysis catheter and placement of left arm fistula under general anesthesia as an outpatient. We will plan this on a nondialysis day. She understands risks and benefits of procedure and consents. MEDICATIONS: 1. Aspirin 81 mg a day. 2. Nifedipine 90 mg a day. 3. Coreg 25 mg twice daily. 4. Rosuvastatin daily. 5. Lantus insulin 8 units subcu a.m. 6. Novolin insulin sliding scale. PAST MEDICAL HISTORY: Diabetes mellitus, hypertension, chronic heart murmur, followed by Dr. Krishnamurthy. Echocardiogram essentially normal. November 2012, hyperlipidemia, end-stage renal disease on maintenance dialysis. PAST SURGICAL HISTORY: Partial hysterectomy, unilateral oophorectomy, tonsillectomy, appendectomy, breast biopsy, colonoscopy [address] Burnham, April 2011, hemodialysis catheter, left AV fistula Timur wrist . FAMILY HISTORY: Diabetes, cancer of unknown type. SOCIAL HISTORY: Tobacco and alcohol, none. ALLERGIES: CODEINE, TONGUE SWELLING; DEMEROL, NAUSEA; DAYPRO, SWELLING; METFORMIN, NAUSEA. REVIEW OF SYSTEMS: Ten-point noncontributory. PHYSICAL EXAMINATION: VITAL SIGNS: 179 pounds, 62 inches, 130/53. HEAD, EARS, EYES, NOSE, AND THROAT: Unremarkable. LUNGS: Clear to auscultation. CARDIAC: Regular rate and rhythm without murmur or gallop. ABDOMEN: Soft and nontender. No hernias. EXTREMITIES: Unremarkable. Ankle edema left wrist Timur fistula thrombosed. ASSESSMENT AND PLAN: End-stage renal disease. Plan laparoscopic PD catheter and new fistula more proximal left forearm under general anesthesia local. She understands risks and benefits, consents. Job ID: [id number]
[2020-02-28 14:30] VITALS: BMI 31.6
[~2020-03-01 10:44] MED LIST: Glycopyrrolate 0.2 MG/ML 5 ML SYRINGE ONE; Lidocaine 1% PF 5 ML VIAL ONE; Metoclopramide HCl 10 MG/2 ML VIAL ONE; Ondansetron PF 4 MG/2 ML Vial ONE; PROPOFOL 200 MG/20 ML VIAL ONE; Rocuronium Bromide 10 MG/ML (10ML VIAL) ONE
[2020-03-01] MEDS ORDERED: Fentanyl 100 MCG/2 ML VIAL ONE (11:42)
[2020-03-01] MEDS ORDERED: Famotidine/PF 20 mg/2ml Vial ONE (11:43)
[2020-03-01] MEDS ORDERED: Heparin 10,000 UNITS/ 10 ML VIAL ONE (11:59)
[2020-03-01] MEDS ORDERED: Heparin 5,000 UNITS/ML VIAL ONE (11:59)
[2020-03-01] MEDS ORDERED: Protamine Sulfate 50 MG/5 ML VIAL ONE (11:59)
[2020-03-01] MEDS ORDERED: Lidocaine 1% w/Epinephrine 1:100K 20 ML VIAL ONE (11:59)
[2020-03-01] MEDS ORDERED: Bupivacaine PF 0.5% 30 ML VIAL ONE (11:59)
[2020-03-01] MEDS ORDERED: SUGAMMADEX SODIUM 200 MG/2 ML VIAL ONE (13:32)
[2020-03-01] MEDS ORDERED: Heparin 1,000 UNITS/ML VIAL ONE (15:38)
--- NOTE | 2020-03-02 06:10 | OP ---
DATE OF PROCEDURE: 03/01/2020 PREOPERATIVE DIAGNOSES: End-stage renal disease, hemodialysis catheter dependence, thrombosed left wrist Timur fistula, desires peritoneal dialysis. POSTOPERATIVE DIAGNOSES: End-stage renal disease, hemodialysis catheter dependence, thrombosed left wrist Timur fistula, desires peritoneal dialysis. PROCEDURES PERFORMED: Laparoscopic peritoneal dialysis catheter placement, double-cuffed pigtail to exit site left lower quadrant. Note, omental adhesions prevented omentum from reaching to the pelvis and omentopexy not necessary. Left arm primary fistula perforating branch antecubital vein to proximal radial artery, outflow cephalic vein questionable, outflow basilic vein questionable, good thrill and bruit heard at the end of the procedure. ANESTHESIA: General, local of 0.5% Marcaine 30 mL mixed with 1% xylocaine with epinephrine 20 mL. DESCRIPTION OF PROCEDURE: The patient was taken to the operating room, where under general anesthesia, abdomen, left upper extremity, and axilla were prepared with ChloraPrep and draped in routine fashion. Bilateral far lateral subcostal incision was made. Pneumoperitoneum to 15 mmHg obtained with a Veress needle, replaced with a 5 port, video laparoscope inserted. Contralateral 5 port placed under laparoscopic visualization. Omentum adhesed to the upper abdomen and would not reach into the pelvis. Scope managed to negotiate around these, identifying the left lower quadrant, making a stab incision at the planned exit site of left lower quadrant and superiorly and medially periumbilical area, left, counter incision was made, 8 mm port placed, directed caudally in the subcutaneous tissue penetrating the anterior rectus fascia, placing it through the rectus sheath, penetrating the posterior fascia peritoneum dependently, caudally entered the abdominal cavity under laparoscopic visualization and double-cuffed pigtail peritoneal dialysis catheter placed placing the internal cuff beneath the catheter, just above the catheter exit site in the rectus sheath and removing the 8-mm port. At the planned exit site slightly laterally and inferiorly, [place] dissector inserted and brought out through the counter incision, grasping the PD catheter and pulled it out the exit site, placed an external cuff in the skin exit site. Subcutaneous tissue was approximated with 3-0 Monocryl, skin with subdermal 4-0 Monocryl. Pneumoperitoneum reduced. All instruments were removed and all skin incisions were approximated with subdermal 4-0 Monocryl and [employer] glue and sterile dressings applied. Attention was then turned to the left volar forearm just below the antecubital fossa. A longitudinal incision was made carried down through the skin and subcutaneous tissue. Antecubital vein identified, was moderate size, not large. It was dissected free. The patient was given 6000 units of heparin intravenously. Perforating branch of antecubital vein dissected free. Branches were divided between 4-0 silk ties and clips, spatulated over branch points, interrogated. The smallest dilator would not pass out the cephalic vein proximally. There was a small communicating branch to the basilic vein that was passed, limited. Further calibration was not attempted. It was flushed with heparinized saline solution, a bulldog atraumatic clamp applied and the proximal artery dissected free, clamped proximally and distally. Longitudinal arteriotomy was made sharply, elongated with Glaser scissors and end perforating branch antecubital vein anastomosed to the side artery with continuous suture of 6-0 Prolene, completing the anastomosis, releasing the vascular clamps noting good Doppler signal in the outflow. This was limited in the cephalic vein as discussed above. There was outflow in the basilic vein. There was not pulsations. Patient given 25 mg of protamine intravenously by Anesthesia. Subcutaneous tissue was approximated with 3-0 Monocryl, skin with subdermal 4-0 Monocryl, and [employer] glue applied. Job ID: [id number]
== END 2020-03-01 16:00 | disposition home or self-care (01) ==
LOC: SDC 10:44
PROVIDERS: ATTEND Specialist
PROC: 0WHG43Z Insertion of Infusion Device into Peritoneal Cavity, Percutaneous Endoscopic Approach (ICD-10-PCS; principal; 2020-03-01)
PROC: 031C0ZF Bypass Left Radial Artery to Lower Arm Vein, Open Approach (ICD-10-PCS; 2020-03-01)
DX: I12.0 Hypertensive chronic kidney disease with stage 5 chronic kidney disease or end stage renal disease (principal); E11.22 Type 2 diabetes mellitus with diabetic chronic kidney disease; N18.6 End stage renal disease; T82.868A Thrombosis due to vascular prosthetic devices, implants and grafts, initial encounter; K66.0 Peritoneal adhesions (postprocedural) (postinfection); E78.5 Hyperlipidemia, unspecified; R01.1 Cardiac murmur, unspecified; Z79.4 Long term (current) use of insulin; Z79.82 Long term (current) use of aspirin; Z79.899 Other long term (current) drug therapy; Z88.5 Allergy status to narcotic agent; Z88.8 Allergy status to other drugs, medicaments and biological substances; Z99.2 Dependence on renal dialysis
CPT/HCPCS: 36416; J0690; J1644; J2405; J2704; J2720; J2765; J3010; S0020; S0028

== ENCOUNTER 2020-04-10 06:53 | Day surgery (SDC) | payer MEDICARE ==
[2020-04-09 10:47] VITALS: BMI 31.6
[2020-04-10] MEDS ORDERED: Iopamidol 300 61% 100 ML VIAL FS ONE (09:17)
[2020-04-10 10:09] VITALS: BP 175/76; TEMP 97
[2020-04-10] MEDS ORDERED: Heparin 1,000 UNITS/ML VIAL ONE (11:32)
--- NOTE | 2020-04-10 14:35 | SPC ---
PROCEDURE: [facility]/AV S PROVIDED CLINICAL HISTORY: Nonmaturing left upper extremity arteriovenous dialysis fistula in a patient with history of end-stag e renal disease. COMPARISON: None TECHNIQUE: After informed consent was obtained, the patient was placed on the angiography table in the supine po sition. The left upper extremity arteriovenous dialysis fistula was evaluated with ultrasound. Left upper extremity was meticulously prepped and draped in usual sterile fashion. Skin and subcutaneous t issues were infiltrated with buffered 1% lidocaine overlying the cephalic vein at the level of the antecubital fossa for local anesthesia. Utilizing concurrent real-time ultrasound guidance, the left cephalic vein was accessed utilizing micropuncture technique, and a 4 [place] introducer sheath was placed directed in the venous direction. A fistulogram and venogram to the SVC were performed. A blood pressure cuff was inflated to just abov e systolic pressure, and contrast was injected to evaluate the arteriovenous anastomosis. The introducer sheath was removed, and hemostasis was achieved with direct pressure. A dry sterile dressi ng was placed. The patient tolerated the procedure well and without immediate complication. FINDINGS: Left upper extremity arteriovenous dialysis fistula with anastomosis via the antecubital vein and pro ximal radial artery, and the arteriovenous anastomosis is patent. The cephalic vein outflow is tortuous and demonstrates generalized small caliber. Basilic vein outflow is patent but also small in caliber. There are several perforating veins to the brachial artery which is also patent. The central veins are patent as well. Fluoroscopy: Time-0.8 minutes Dose-9375 mGy centimeter squared IMPRESSION: 1. Left upper extremity arteriovenous dialysis fistula with proximal radial artery to antecubital vei n anastomosis which is patent. 2. Cephalic vein outflow is very small in caliber throughout the course of the cephalic vein and also demonstrates tortuosity at the level of the proximal humerus. Basilic vein outflow is also patent but small in caliber throughout its course with several perforating veins extending to the brachial v ein.
== END 2020-04-10 09:35 | disposition home or self-care (01) ==
LOC: SPEC 06:53
PROVIDERS: ATTEND Specialist
PROC: B51W1ZZ Fluoroscopy of Dialysis Shunt/Fistula using Low Osmolar Contrast (ICD-10-PCS; principal; 2020-04-10)
DX: I12.0 Hypertensive chronic kidney disease with stage 5 chronic kidney disease or end stage renal disease (principal); E11.22 Type 2 diabetes mellitus with diabetic chronic kidney disease; N18.6 End stage renal disease; G47.33 Obstructive sleep apnea (adult) (pediatric); E78.5 Hyperlipidemia, unspecified; K21.9 Gastro-esophageal reflux disease without esophagitis; Z79.4 Long term (current) use of insulin; Z79.82 Long term (current) use of aspirin; Z79.899 Other long term (current) drug therapy; Z88.5 Allergy status to narcotic agent; Z88.8 Allergy status to other drugs, medicaments and biological substances; Z99.2 Dependence on renal dialysis
CPT/HCPCS: 36901; J1644; Q9967

== ENCOUNTER 2020-05-21 06:37 | Outpatient (CLI) | payer MEDICARE, OTHER ==
[2020-02-27 16:40] LABS: Anion Gap 18 mmol/L (10-20); BUN (Urea Nitrogen) 19 mg/dL (9.8-20.1); Calc. Creatinine Clearance 0 mL/min (70-130); Calcium 8.9 mg/dL (7.8-10.44); Carbon Dioxide 27 mmol/L (23-31); Chloride 97 mmol/L (98-107); Estimated GFR-MDRD 20; Glucose 206 mg/dL (80-115); Potassium 3.6 mmol/L (3.5-5.1); Sodium 138 mmol/L (136-145)
[2020-02-27 17:10] LABS: #Basophils 0.1 thou/uL (0.0-0.2); #Eosinphils 0.1 thou/uL (0.0-0.7); #Lymphocytes 1.3 thou/uL (1.20-3.40); #Monocytes 0.5 thou/uL (0.11-0.59); #Neutrophils 3.6 thou/uL (1.40-6.50); %Basophils 1.5 % (0.0-1.0); %Eosinophils 1.8 % (0.0-10.0); %Lymphocytes 22.7 % (21.0-51.0); %Monocytes 9.1 % (0.0-10.0); %Neutrophils 64.9 % (42.0-75.0); Hemoglobin 13.6 g/dL (12.0-16.0); Hypochromia SLIGHT = 6-15 cells (100X) (0-5/hpf); Large Platelets SLIGHT; MDiff Complete? YES; Mean Corpuscular HGB CONC 29.3 g/dL (32.0-36.0); Mean Corpuscular Hemoglobin 26.1 pg (27.0-31.0); Mean Corpuscular Volume 88.9 fL (78.0-98.0); Mean Platelet Volume 12.7 fL (7.4-10.4); Platelet Count 122 thou/uL (130-400); Platelet Morphology Comment Appears Decreased; Polychromasia SLIGHT = 2-3 cells (100X) (0-2/hpf); RBC Distribution Width 18.9 % (11.5-14.5); Target Cells SLIGHT = 2-5 cells (100X) (0-1/hpf); Tear Drops SLIGHT = 2-5 cells (100X) (0-1/hpf); White Blood Cell (WBC) Count 5.6 thou/uL (4.8-10.8)
[2020-02-28 13:14] LABS: SARS-CoV-2 MS2 Positive; SARS-CoV-2 N Gene Negative; SARS-CoV-2 S Gene Negative; SARS-CoV-2 by NAA Not Detected (NotDetected); SARS-CoV-2 orf1ab Negative
--- NOTE | 2020-03-01 16:36 | EKG ---
Test Reason : Blood Pressure : / mmHG Vent. Rate : 074 BPM Atrial Rate : 074 BPM P-R Int : 148 ms QRS Dur : 074 ms QT Int : 398 ms P-R-T Axes : 046 052 056 degrees QTc Int : 441 ms Normal sinus rhythm Cannot rule out Anterior infarct , age undetermined Abnormal ECG No previous ECGs available Confirmed by DR. Carlee MAN ([id number]) on 03/01/2020 4:35:58 PM Referred By: GALE Confirmed By:DR. Carlee MAN
--- NOTE | 2020-05-21 11:40 | RAD ---
EXAM: Chest 2 views: HISTORY: Preoperative radiograph COMPARISON: 01/07/2020 FINDINGS: There is an enlarged cardiomediastinal silhouette. There is no evidence of consolidation, mass, or pl eural effusion. Degenerative changes are seen in the spine. IMPRESSION: Cardiomegaly
[2020-05-21 13:56] LABS: Anion Gap 17 mmol/L (10-20); BUN (Urea Nitrogen) 38 mg/dL (9.8-20.1); Calc. Creatinine Clearance 0 mL/min (70-130); Calcium 9.2 mg/dL (7.8-10.44); Carbon Dioxide 20 mmol/L (23-31); Chloride 109 mmol/L (98-107); Estimated GFR-MDRD 31; Glucose 116 mg/dL (80-115); Potassium 5.4 mmol/L (3.5-5.1); Sodium 141 mmol/L (136-145)
[2020-05-21 14:04] LABS: Hemoglobin 11.4 g/dL (12.0-16.0); Mean Corpuscular HGB CONC 29.5 G/DL (32.0-36.0); Mean Corpuscular Hemoglobin 24.6 PG (27.0-33.0); Mean Corpuscular Volume 83.4 fl (80.0-100.0); Platelet Count 95 10x3/uL (130-400); RBC Distribution Width 18.6 % (11.5-14.5); Red Blood Cell (RBC) Count 4.64 10x6/uL (3.90-5.20); White Blood Cell (WBC) Count 5.5 10x3/uL (4.5-11.0)
[2020-05-22 10:53] LABS: SARS-CoV-2 MS2 Positive; SARS-CoV-2 N Gene Negative; SARS-CoV-2 S Gene Negative; SARS-CoV-2 by NAA Not Detected (NotDetected); SARS-CoV-2 orf1ab Negative
== END 2020-05-21 06:38 | disposition home or self-care (01) ==
LOC: LABBT 06:37
PROVIDERS: ATTEND Specialist
DX: Z01.818 Encounter for other preprocedural examination (principal); Z99.2 Dependence on renal dialysis; Z20.828 Contact with and (suspected) exposure to other viral communicable diseases
CPT/HCPCS: 71046; 80048 ×2; 85025; 85027; 93005 ×2; U0003 ×2; 87635; 93010

== ENCOUNTER 2020-05-24 10:42 | Day surgery (SDC) | payer MEDICARE ==
[2020-05-23 10:00] VITALS: BMI 32.4
--- NOTE | 2020-05-23 10:17 | HP ---
HISTORY OF PRESENT ILLNESS: Steff Chacon is a 70-year-old black female, on dialysis, hemodialysis since November, has a laparoscopic peritoneal dialysis catheter placed, has had a thrombosed left wrist [place] fistula and revision in February along with her laparoscopic PD catheter, placement of a more proximal fistula inflow proximal radial artery outflow basilic and cephalic vein. Both of which were questionable at the time of surgery, but followup recent fistulogram reveals distally tortuous cephalic vein, smaller cephalic vein upper arm and basilic vein outflow. No central circulation problems. Patient is followed by Dr. Sands. Her peritoneal dialysis catheter has been working well, although her renal function is improved and she has not had to do peritoneal dialysis for over a week. Anticipate that we will be removing her peritoneal dialysis catheter under IV sedation and local anesthesia. If she develops recurrent renal failure and requires future dialysis, she may need revision of her left upper arm fistula pending condition at that time. We will leave that decision to later. PAST MEDICAL HISTORY: Hypertension; normal echocardiogram in November 2012; hyperlipidemia; chronic kidney disease, now peritoneal dialysis terminated, not needing dialysis currently, followed by Dr. Sands; diabetes; and hypertension. PAST SURGICAL HISTORY: Partial hysterectomy, tonsillectomy, appendectomy, right breast biopsy, colonoscopy, HD catheter placement, and left [place] fistula, Dr. Fam in November 2019, laparoscopic PD catheter and a new proximal fistula 02/29/2020, fistulogram in April 2020. PHYSICAL EXAMINATION: VITAL SIGNS: 180 pounds, 62 inches, 149/55, 61, 97.3 degrees, followed by Dr. Guajardo, Dr. Sands. HEAD, EARS, EYES, NOSE, AND THROAT: Unremarkable. LUNGS: Clear to auscultation. CARDIAC: Regular rate and rhythm, without murmur or gallop. ABDOMEN: Soft, nontender. PD catheter in place. Laparoscopic incisions well healed. EXTREMITIES: Unremarkable. Left upper arm fistula, good thrill and bruit. Well-healed proximal volar forearm incision. ASSESSMENT: End-stage renal disease, improved; chronic kidney disease, now off peritoneal dialysis, currently not requiring dialysis. Hemodialysis catheter removed during previous visit. PLAN: Removal of her peritoneal dialysis catheter when Dr. Sands states it is appropriate to do so under IV sedation and local anesthesia as an outpatient. Job ID: [id number]
[~2020-05-24 10:42] MED LIST changes: -Glycopyrrolate 0.2 MG/ML 5 ML SYRINGE ONE; -Metoclopramide HCl 10 MG/2 ML VIAL ONE; -Ondansetron PF 4 MG/2 ML Vial ONE; -Rocuronium Bromide 10 MG/ML (10ML VIAL) ONE
[2020-05-24] MEDS ORDERED: Acetaminophen 500 MG TAB ONE (13:51)
[2020-05-24] MEDS ORDERED: Bupivacaine PF 0.5% 30 ML VIAL ONE (16:18)
[2020-05-24] MEDS ORDERED: Lidocaine 1% w/Epinephrine 1:100K 20 ML VIAL ONE (16:18)
[2020-05-24] MEDS ORDERED: Fentanyl 100 MCG/2 ML VIAL ONE (16:27)
[2020-05-24] MEDS ORDERED: Midazolam HCl 2 mg/2 ml Vial ONE (16:27)
[2020-05-24] MEDS ORDERED: traMADol HCl 50 MG TAB ONE (17:42)
--- NOTE | 2020-05-24 19:56 | OP ---
DATE OF PROCEDURE: 05/24/2020 PREOPERATIVE DIAGNOSIS: 1. Undesired peritoneal dialysis catheter. 2. End-stage renal disease. POSTOPERATIVE DIAGNOSES: 1. Undesired peritoneal dialysis catheter. 2. End-stage renal disease. PROCEDURE PERFORMED: Removal of double cuffed pigtail peritoneal dialysis catheter. ANESTHESIA: Intravenous sedation, local 0.5% Marcaine 30 mL mixed with 1% Xylocaine with epinephrine. DESCRIPTION OF PROCEDURE: The patient was taken to the operating room, where under intravenous sedation, abdomen and PD catheter were prepared with ChloraPrep and draped in routine fashion. Local anesthetic mixture was infiltrated into the skin and subcutaneous tissue. Catheter and cuff dissected free, removed intact. Dressing applied. The patient tolerated procedure well. Job ID: [id number]
== END 2020-05-24 17:58 | disposition home or self-care (01) ==
LOC: SDC 10:42
PROVIDERS: ATTEND Specialist
PROC: 0WPG03Z Removal of Infusion Device from Peritoneal Cavity, Open Approach (ICD-10-PCS; principal; 2020-05-24)
DX: Z49.02 Encounter for fitting and adjustment of peritoneal dialysis catheter (principal); I12.0 Hypertensive chronic kidney disease with stage 5 chronic kidney disease or end stage renal disease; E11.22 Type 2 diabetes mellitus with diabetic chronic kidney disease; N18.6 End stage renal disease; E78.5 Hyperlipidemia, unspecified; Z79.4 Long term (current) use of insulin; Z79.82 Long term (current) use of aspirin; Z79.899 Other long term (current) drug therapy; Z88.5 Allergy status to narcotic agent; Z88.8 Allergy status to other drugs, medicaments and biological substances
CPT/HCPCS: 36416; J0690; J2250; J2704; J3010; S0020

== ENCOUNTER 2020-11-18 07:42 | Outpatient (CLI) | payer MEDICARE | END 2020-11-18 07:43 | disposition home or self-care (01) | LOC: BICMAMMO 07:42 | PROVIDERS: ATTEND Family Medicine | DX: Z12.31 Encounter for screening mammogram for malignant neoplasm of breast (principal) | CPT/HCPCS: 77063; 77067 ==

== ENCOUNTER 2021-12-04 10:30 | Outpatient (CLI) | payer MEDICARE | END 2021-12-04 10:31 | disposition home or self-care (01) | LOC: BICMAMMO 10:30 | PROVIDERS: ATTEND Family Medicine | DX: Z12.31 Encounter for screening mammogram for malignant neoplasm of breast (principal); Z13.820 Encounter for screening for osteoporosis; Z78.0 Asymptomatic menopausal state; Z91.89 Other specified personal risk factors, not elsewhere classified | CPT/HCPCS: 77063; 77067; 77080 ==

== ENCOUNTER 2022-11-10 11:48 | Outpatient (CLI) | payer MEDICARE | END 2022-11-10 11:49 | disposition home or self-care (01) | LOC: BICRAD 11:48 | PROVIDERS: ATTEND Family Medicine | DX: M25.572 Pain in left ankle and joints of left foot (principal); M19.072 Primary osteoarthritis, left ankle and foot; M77.32 Calcaneal spur, left foot ==

== ENCOUNTER 2025-04-06 11:25 | Outpatient (CLI) | payer MEDICARE | END 2025-04-06 11:26 | disposition home or self-care (01) | LOC: BICMAMMO 11:25 | PROVIDERS: ATTEND Family Medicine | DX: Z12.31 Encounter for screening mammogram for malignant neoplasm of breast (principal); Z91.89 Other specified personal risk factors, not elsewhere classified | CPT/HCPCS: 77063; 77067 ==